=== PATIENT | male | born 1950 | race Caucasian/White ===

== ENCOUNTER 2019-09-24 09:00 | Outpatient (RCR) | payer MEDICARE, SELFPAY ==
--- NOTE | 2019-08-30 16:02 | PTOPEVAL ---
INITIAL PHYSICAL THERAPY EVALUATION and PLAN OF CARE Thank you for referring Mikey to [facility]. Please review, sign, date and return this plan of care ARYAN. He will be seen in PT 2x/wk x 4 wks. I agree with and certify that the following plan of care is medically necessary. Referring Physician Date Admitting Provider: Attending Provider: Nick Nevarez MD Referring Provider: *PT Outpatient Evaluation Start: 08/30/19 14:03 Freq: Status: Active Protocol: Document 08/30/19 14:00 MICHEAL (Rec: 08/30/19 15:34 MICHEAL [id number]) Therapy Assessment Status Assessment Status Assessment Status Evaluation Outpatient Past Medical History Neurological History Hx Neurological Disorders No Significant History Cardiovascular History Hx Coronary Artery Bypass Graft Yes: 4 VESSELS JUN 2015, SEES DR. NIEVES LAST VISIT 05/2019 Hx Coronary Artery Disease Yes Hx Hypercholesterolemia Yes Hx Hypertension Yes Respiratory History Hx Respiratory Disorders No Significant History Gastrointestinal History Hx Gastrointestinal Disorders No Significant History Genitourinary History Hx Genitourinary Disorders No Significant History Musculoskeletal History Hx Arthritis Yes: back, neck Hx Joint Replacement Yes: L partial knee 08/25/19 Hematological History Hx Hematological Disorders No Significant History Endocrine History Hx Endocrine Disorders No Significant History HEENT History Hx Cataracts Yes: BILATERALY SURGERY 2017 Integumentary History Hx Psoriasis Yes: LT LEG, LT ARM Evaluation Information Problem Diagnosis L [place] partial knee Onset 08/25/19 Subjective Information hospitalized overnight Query Text:As Reported By Patient/ night - did too much Family walking on R leg - increased swelling, back in ED Friday morning - no damage - just pain and swelling Initially couldn't feel any pain - then all of a sudden - pain started coming on and kept coming stronger. Saw TIBURCIO - today - everything looking fine. Was told not to do any of the exercises - to keep leg up/elevated with ice after ED visit. Was cleared to do exercises again. 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
--- NOTE | 2019-09-24 13:07 | PTOPEVAL ---
PHYSICAL THERAPY DISCHARGE SUMMARY Thank you for referring this patient to [facility] [place]. Mikey was seen for a total of 8 visits. I agree with Mikey's discharge from PT. Referring Physician Date Admitting Provider: Attending Provider: Nick Nevarez MD Referring Provider: *PT Outpatient Evaluation Start: 08/30/19 14:03 Freq: Status: Active Protocol: Document 09/24/19 09:00 MICHEAL (Rec: 09/24/19 13:07 MICHEAL [id number]) Therapy Assessment Status Assessment Status Assessment Status Discharge Discharge evaluation information Problem Subjective Information Mikey reports that occasionally Query Text:As Reported By Patient/ he will have some discomfort Family while sleeping. After repositioning, he is able to return to sleep. He states that he is doing well with activities - usual household, going to grandchildren's activities, etc. Pain Assessment Pain Scale Pain Scale Used Numeric (1 - 10) Self Report Pain Assessment Left Knee(s) Reported Pain Level 0 Pain Description Aching Other Pain Description irritation Current Pain Intensity 0 Lowest Pain Intensity 0 Greatest Pain Intensity 1 Pain Score Pain Score 0: Self Report Lower Extremity Range of Motion Knee Range of Motion Left Knee Flexion Range of Motion - Active 130 Knee Extension Range of Motion - Active 0 Query Text: Knee Range of Motion Comments knee flexion in sitting and supine - 130 At rest - mild flexion present but with quad set can achieve full extension . Lower Extremity Muscle Strength Testing Hip Strength Left Hip Flexion Strength 5 Normal Hip Extension Strength 5 Normal Hip Abduction Strength 4+ Good + Hip Medial Rotation Strength 5 Normal Hip Lateral Rotation Strength 5 Normal Knee Strength Left Knee Flexion Strength 5 Normal Knee Extension Strength 5 Normal Edema Assessment Location Left Leg(s) Type Non-Pitting Edema Degree 1+ (2 mm or less) Gait Assessment Gait Pattern Assessment Other Gait Observations mild lateral trunk motion - symmetrical, symmetrical heel/ toe pattern, stance and swing phases Stair Climbing Assessment Stair Climbing Assessment Stair Climbing Assistive Devices None Technique
== END 2019-11-11 14:07 | disposition home or self-care (01) ==
LOC: ANHHIPT 09:00
PROVIDERS: Visit Provider Orthopaedic Surgery
DX: Z47.1 Aftercare following joint replacement surgery (principal); Z96.652 Presence of left artificial knee joint
CPT/HCPCS: 97110; 97162

== ENCOUNTER 2020-12-27 11:20 | Outpatient (CLI) | payer MEDICARE, SELFPAY ==
[2020-12-27 13:14] LABS: Basophils Absolute Auto 0.1 K/mm3 (0.0-0.1); Basophils Percent Auto 1.1 % (0.2-1.2); Eosinophils Absolute Auto 0.1 K/mm3 (0-0.3); Eosinophils Percent Auto 2.7 % (0-4.4); Hematocrit 43.2 % (42.0-52.0); Hemoglobin 14.4 g/dL (14.0-18.0); Immature Granulocyte Absolute 0.01 K/mm3 (0.00-0.031); Immature Granulocyte Percent A 0.2 % (0-0.5); Lymphocytes Absolute Auto 1.15 K/mm3 (0.9-3.2); Lymphocytes Percent Auto 24.2 % (18.3-44.2); Mean Corpuscular HGB Conc 33.3 g/dl (32-36); Mean Corpuscular Hemoglobin 33.6 pg (26-34); Mean Corpuscular Volume 100.7 fl (80-100); Mean Platelet Volume 9.8 fl (7.4-10.4); Monocytes Absolute Auto 0.7 K/mm3 (0.1-0.6); Monocytes Percent Auto 14.3 % (2.6-8.5); Neutrophils Absolute Auto 2.7 K/mm3 (1.3-6.7); Neutrophils Percent Auto 57.5 % (45.5-73.1); Platelet Count Result 108 k/mm3 (150-375); Red Blood Count 4.29 M/mm3 (4.6-6.20); Red Cell Distribution Width 13.1 % (11.5-14.5); White Blood Count 4.8 K/mm3 (4.5-10.0)
[2020-12-27 13:23] LABS: Urine Cotinine NEGATIVE
[2020-12-27 13:25] LABS: Albumin Level 4.2 g/dL (3.5-5.1); Anion Gap 3 mmol/L (8-16); Blood Urea Nitrogen 12 mg/dL (9-20); Calcium 9.2 mg/dL (8.4-10.2); Carbon Dioxide 31 mmol/L (22-30); Chloride 101 mmol/L (98-107); Estimated Glomerular Filt Rate > 60; Glucose 100 mg/dL (75-110); Potassium 4.5 mmol/L (3.4-5.0); Sodium 135 mmol/L (137-145)
== END 2020-12-27 11:21 | disposition home or self-care (01) ==
LOC: ANHSURGERY 11:24
PROVIDERS: Visit Provider Orthopaedic Surgery
DX: M17.11 Unilateral primary osteoarthritis, right knee (principal); Z01.818 Encounter for other preprocedural examination
CPT/HCPCS: 80048; 80307; 82040; 83036; 85025; 87070; 87077; 87186

== ENCOUNTER → 2021-01-13 05:22 | Outpatient (CLI) | payer MEDICARE, SELFPAY ==
[2021-01-13 19:34] LABS: SARS-CoV-2 RNA PCR Negative
== END ==
PROVIDERS: Visit Provider Orthopaedic Surgery
DX: Z01.812 Encounter for preprocedural laboratory examination (principal); Z20.822 Contact with and (suspected) exposure to COVID-19
CPT/HCPCS: C9803; U0003; U0005

== ENCOUNTER → 2021-01-27 02:57 | Outpatient (CLI) | payer MEDICARE, SELFPAY ==
[2021-01-27 19:43] LABS: SARS-CoV-2 RNA PCR Negative
== END ==
PROVIDERS: Visit Provider Orthopaedic Surgery
DX: Z01.812 Encounter for preprocedural laboratory examination (principal); Z20.822 Contact with and (suspected) exposure to COVID-19
CPT/HCPCS: C9803; U0003; U0005

== ENCOUNTER 2021-01-31 02:54 | Day surgery (SDC) | payer MEDICARE, SELFPAY ==
[2020-12-27 11:55] VITALS: BP 167/68; PULSE 64; RESP 16; TEMP 37.4; O2SAT 99; BMI 31.2
--- NOTE | 2021-01-15 11:51 | PM.IMHP ---
H&P: HPI History of Present Illness Date/Time: 01/15/21 11:51 [address] Santos.He presents today for a right [place] partial knee replacement versus total knee replacement. He underwent partial knee replacement his left knee about a year and half ago. It is doing well. His right knee is bothering him significantly. He has the same arthritic pattern of medial compartment arthritis in the right knee. He is unable take anti-inflammatories due to coronary artery bypass in the past. He has tried injections in the past none within the last 5 months. Did not seem to help. Patient is fairly miserable, he has ncji-sd-[id number] arthritis in medial compartment. He did very well with his left partial knee replacement and feels he is ready to proceed with the right side. Chief Complaint: right knee DJD Review of Systems Review of Systems: All systems reviewed & are unremarkable except as noted in HPI and below PMFSH Past Medical History Medical History CAD (coronary artery disease) Hyperlipidemia Hypertension Surgical History Surgical History Hx of CABG x4 vessel, 2015 Family History Family History Sibling Patient's sister is in good health Patient's brother is in good health Other Family history of arthritis Family history of congenital heart disease Family history of malignant neoplasm Social History Social History Social History: quit 10-15 years ago, smoked at least 1 PPD x 30 years prior Smoking packs per day: 1.5 Smoking cigarettes per day: 30.0 Years smoked: 30 Smoking pack-years: 45.00 Smoking status: Former smoker Second hand tobacco smoke exposure: No Smoking end date: 04/12/05 Alcohol intake: current Drinks per week: 28 Substance use: never Additional living arrangements comments: Gender identity (if verbalized by the patient): Male Spiritual care concerns: No Meds Home Medications and Allergies Home Medications Medication Instructions Recorded Confirmed Type atorvastatin 20 mg PO HS 08/10/19 12/27/20 History metoprolol tartrate 12.5 mg PO BID 08/10/19 12/27/20 History acetaminophen 1,000 mg PO Q6H PRN 12/27/20 12/27/20 History aspirin [Aspirin Low-Strength] 81 mg PO DAILY 12/27/20 12/27/20 History Allergies Allergy/AdvReac Type Severity Reaction Status Date / Time lisinopril AdvReac Mild MILD COUGH Verified 12/27/20 11:46 Exam Narrative: Exam Narrative: 70-year-old male very alert pleasant. He is 5 ft 5 195 lb. His right knee range of motion is from 3-140 ?. He has large varicose veins in the right calf and trace edema in both lower extremities. 2+ posterior tibial pulse no dorsalis pedis pulse. Normal sensation. Hip range of motion is full without discomfort. Negative Stinchfield maneuver. Normal quad strength. Negative Ailyn's. Resp: Auscultation: clear to auscultation bilaterally Cardio: Rate: regular rate Rhythm: regular rhythm Assessment and Plan Additional Plan 70-year-old male who has lvnr-kf-crud arthritis in medial compartment of the right knee with continued symptoms. He is about a year and half out from his left partial knee replacement which is doing well. He feels that he is having enough pain on a daily basis he would like proceed with right partial knee replacement versus total knee replacement. Surgical procedures well as risks and complications were reviewed. All questions were answered. Patient remain on his aspirin through the time of surgery due to his history of bypass. Patient has seen his regional property manager,Dr. Al, and has been cleared. He has also seen his primary care doctor as well and has been cleared for surgery. We will plan to use aspirin as well as portable SCDs for DVT prophylaxis as we did wit
--- NOTE | 2021-01-18 12:02 | PC.NURSE ---
Pt states no changes in medications or health history since time of interview. New Covid date/time and pre-op instructions given. Pt denies any questions at this time.
--- NOTE | 2021-01-30 13:21 | P.PNAN_ITS ---
Anes - Initial Pre Proc Eval Procedure: Operation Date: 01/31/21 12:00 Proposed Procedures p Right Partial Knee Replacement [place] Versus Total Right Knee Replacement - Nick Nevarez MD Date/Time: 01/30/21 13:21 Surgeon: Nick Nevarez MD Pre Op Diagnosis: Medial Compartment Osteoarthritis Right Knee Patient Data Age: 70 Gender: M Height: 1.68 m Weight: 87.9 kg Last Vital Signs Temp 37.4 C 12/27/20 11:55 Pulse 64 12/27/20 11:55 Resp 16 12/27/20 11:55 BP 167/68 H 12/27/20 11:55 Pulse Ox 99 12/27/20 11:55 Allergies Allergy/AdvReac Type Severity Reaction Status Date / Time lisinopril AdvReac Mild MILD COUGH Verified 01/18/21 12:02 Home Medications Medication Instructions Recorded Confirmed Type atorvastatin 20 mg PO HS 08/10/19 01/18/21 History metoprolol tartrate 12.5 mg PO BID 08/10/19 01/18/21 History acetaminophen 1,000 mg PO Q6H PRN 12/27/20 01/18/21 History aspirin [Aspirin Low-Strength] 81 mg PO DAILY 12/27/20 01/18/21 History Patient hx anesthesia problems: none Family hx anesthesia problems: none PMFSH Past Medical History Medical History (Updated 01/30/21 @ 13:24 by Otf Valdez MD) CAD (coronary artery disease) Hyperlipidemia Hypertension Obesity HUANG (obstructive sleep apnea) Osteoarthritis Surgical History Surgical History (Updated 01/30/21 @ 13:24 by Otf Valdez MD) Hx of CABG x4 vessel, 2014 Family History Family History Sibling Patient's sister is in good health Patient's brother is in good health Other Family history of arthritis Family history of congenital heart disease Family history of malignant neoplasm Social History Social History Social History: quit 10-15 years ago, smoked at least 1 PPD x 30 years prior Smoking packs per day: 1.5 Smoking cigarettes per day: 30.0 Years smoked: 30 Smoking pack-years: 45.00 Smoking status: Former smoker Second hand tobacco smoke exposure: No Smoking end date: 04/12/05 Alcohol intake: current Drinks per week: 28 Alcohol use details: 4 BEERS/DAY Substance use: never Living arrangements: with family Additional living arrangements comments: Gender identity (if verbalized by the patient): Male Spiritual care concerns: No Anes - Eval Final PreProcedure Day of Procedure 01/30/21 13:21 Patient weight: obese Heart: regular rate and rhythm Lungs: clear to auscultation and normal air movement Airway: Mallampati scale class II Neurological: alert and oriented Last oral intake: >/= 8 hours ASA classification: III Emergent: no Anesthetic plan: proceed Anesthesia type and monitoring: general LMA and ETT Informed Consent: The patient's anesthetic plan and its attendant risks and benefits were discussed with the patient/family/POA. Questions were solicited and answers provided to the satisfaction of the patient/family/POA.
[2021-01-31] VITALS (16 sets, daily range): BP systolic 122–155; BP diastolic 50–72; PULSE 64–91; RESP 10–20; TEMP 36.2–37.1; O2SAT 90–98; BMI 36.8
--- NOTE | ~2021-01-31 | XR_ITS ---
EXAMINATION: XR surgery orthopedic DATE: 01/31/2021 14:05 INDICATION: Right partial knee arthroplasty. TECHNIQUE: 18 fluoroscopic images of the right knee were obtained during procedure performed by Dr. Toñito kilpatrick. Radiologist was not present for the imaging or procedure. The amount of fluoroscopy time used during this procedure was 1.1 minutes. COMPARISON: None. FINDINGS: Osteotomy at the right medial tibial plateau with placement of a likely trial tray for subsequent med ial unicompartmental. No fractures identified. A guide pin and soft tissue retractors are also seen. IMPRESSION: 1. Fluoroscopy utilized during right knee medial unicompartmental arthroplasty. See procedure note fo r further detail. Reviewed, dictated and finalized at location A. IMPRESSION: 1. Fluoroscopy utilized during right knee medial unicompartmental arthroplasty. See procedure note for further detail.
--- NOTE | ~2021-01-31 | XR_ITS ---
EXAMINATION: XR knee RT 2V DATE: 01/31/2021 16:10 INDICATION: Right knee arthroplasty. Postop. TECHNIQUE: 2 views of right knee were obtained. COMPARISON: Right knee radiographs 10/16/2017 FINDINGS: There is a medial compartment arthroplasty in near-anatomic alignment. No fracture. There i s mild osteoarthritis of the lateral and patellofemoral compartments characterized by tiny marginal o steophytes. There is gas in the soft tissues, consistent with recent surgery. Calcifications posterio r to the knee are likely loose bodies in a Sanchez's cyst. IMPRESSION: 1. Medial compartment arthroplasty in near-anatomic alignment. 2. 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 3. Loose bodies in a Sanchez's cyst. Reviewed, dictated and finalized at location B.
[2021-01-31] MEDS: LACTATED RINGERS 1,000 ML 30 ML IV CONT ×2 (10:40→15:59)
[2021-01-31] MEDS: TRANEXAMIC ACID 1,000MG/ISO100 1,000 MG/100 ML BAG 200 MG IVPB (10:41)
[2021-01-31] MEDS: ACETAMINOPHEN 500 MG TABLET 1000 MG PO ×2 (10:41→18:56)
[2021-01-31] MEDS: KETOROLAC 15 MG/ML VIAL (*BKC) IV PUSH (11:41)
--- NOTE | 2021-01-31 12:12 | WPDHPUPDATE1 ---
History and Physical Update Update Date/Time: 01/31/21 12:12 History and Physical has been reviewed, including an updated exam of the patient. There are NO changes in the patient's condition. Risks, benefits, and alternatives have been discussed and questions answered. Patient agrees to proceed with procedure.
[2021-01-31] MEDS: ceFAZolin 2 GM/D5W 50 ML 2 GM/50 ML BAG IVPB (13:25)
[2021-01-31] MEDS: GENTAMICIN BONE CEMENT REFOBACIN 1 EACH TOPICAL ×2 (14:15→14:47)
[2021-01-31] MEDS: ceFAZolin SODIUM 1 GM VIAL IRRIGATION (15:17)
--- NOTE | 2021-01-31 15:50 | PM.PROC ---
Procedure Note - Detailed Date of procedure: 01/31/21 Pre-op diagnosis: Medial Compartment Osteoarthritis Right Knee Post-op diagnosis: same Procedure performed: [place] partial knee replacement right knee Description of procedure: Patient was brought to the operating room and general anesthesia was administered. The right thigh was placed on the special ox for partial knee replacement thigh khan with a tourniquet on the thigh and the right knee prepped draped usual fashion. He received 2 g of Ancef weight based vancomycin 1 g of tranexamic acid preoperatively. Limb was exsanguinated and tourniquet elevated to 300 mmHg. A 4 in longitudinal incision was made over the medial margin of the patella to medial to tibial tubercle. Arthrotomy was made with line with the incision. A 1/2 cm split in the VMO made at the superior pole of the patella. Small portion of the infrapatellar fat pad was excised and we removed osteophytes from around the medial femur from the inferior and superior poles of the patella and from around the intercondylar notch. Osteophyte was removed between the medial femoral condyle and medial eminence. ACL looked normal lateral compartment looked normal. There was some chondromalacia of the central trochlea and patella. The medium spoon fit nicely and had appropriate thickness and ligament tension. We lengthen medium spoon to the tibial cutting guide set at 7? of posterior slope using the 4 mm G clamp which was pinned. The tibial cut was made and the wafer sized appropriately to a size D. We placed the Diederich trial on the tibia and was overhanging 2 mm so we removed about 2 mm of bone from the vertical wall and we trialed with the D under fluoro and it fit line to line. Fedder line was drawn on the femur guide meli was inserted down the femoral canal and we linked the medium femoral drill guide to the intramedullary meli set at 4 mm and drilled the holes such that we were just a mm medial to midline on the medial component and a trial on the femoral component drill holes. Posterior chamfer cut made and the distal femur milled with a 0 spigot. On trialing 4 mm was appropriate at 100? of flexion and 2 mm was appropriate at 20? of flexion. We milled with a 2 mm spigot and on trialing we had appropriate balance and equal wiggle with a 4 mm trial bearing at 120? of flexion. Impingement guide was placed anterior femur milled posterior cartilage removed the femur. The keel slot for the tibial component was made with the toothbrush saw and we trialed 1 more time and bearing tracking was a mm from the vertical wall Alejandro flexion mid flexion drifting off to about 2 and half to 3 mm of vertical wall in full extension. There was no impingement in full extension and full flexion. Step drill was used to make multiple perforations tibial plateau and distal femur. Bony surfaces were thoroughly irrigated and dried. One batch of methylmethacrylate with gentamicin was mixed medially applied the tibial component the pressurized in the femur and the tibial component size D fully seated trial femur 4 mm Feeler 45? of flexion for pressurization the tourniquet released at 95 minutes. After cement hardening excess cement was carefully soft for removed and we prepared the femur we elevation the tourniquet and batch of cement of the femoral component pressurized in the femur and femoral component fully seated size medium 4 mm Feeler 45? of flexion tourniquet released and allowed the cement to harden after which excess cement was sought for and removed. We trialed and the 4 bearing was appropriate again in flexion extension. The real 4 bearing was placed without difficulty range of motion stability reconfirmed. The wound was thoroughly irrigated with antibiotic solution. Arthrotomy injected with the the 2 carts anesthetic solution arthrotomy was closed with 2. Vicryl Plus than 1 unidirectional barbed strata fix suture and 2 a subcutaneous Vicryl and the skin 3 0 subcuticular
--- NOTE | 2021-01-31 17:24 | ADMGEN ---
This patient, Mikey Almonte, was admitted to Medical Room 254-01. Patient/family oriented to hospital policies and general routines including ID bracelet, bed and alarms, visiting hours, pain management, procedures, bathroom and other care routines, personal items, smoking policy, room service/diet, and visiting hours. Information on how to activate the Rapid Response Team has been discussed. Patient/Family are encouraged to report perceived risks to care and to ask questions if they do not understand what they are told or what they should do.
[2021-01-31] MEDS: DEXTROSE 5%/0.45% SOD CHL 1,000 ML 100 ML IV CONT (18:55)
[2021-01-31] MEDS: SENNA/DOCUSATE SODIUM TABLET 2 TAB PO (18:56)
--- NOTE | 2021-01-31 20:20 | PM.IMCN ---
Assessment and Plan Assessment and plan (1) Status post right partial knee replacement: Code(s): Z96.651 - Presence of right artificial knee joint Status: Acute Assessment and Plan: Continue ortho recommendations. (2) CAD (coronary artery disease): Qualifiers: Associated angina: without angina Coronary Disease-Associated Artery/Lesion type: bypass graft, autologous artery Qualified Code(s): I25.810 - Atherosclerosis of coronary artery bypass graft(s) without angina pectoris Code(s): I25.10 - Atherosclerotic heart disease of [place] coronary artery without angina pectoris Status: Chronic Assessment and Plan: No chest pain. Continue home meds. (3) Hyperlipidemia: Qualifiers: Hyperlipidemia type: unspecified Qualified Code(s): E78.5 - Hyperlipidemia, unspecified Code(s): E78.5 - Hyperlipidemia, unspecified Status: Chronic Assessment and Plan: Continue atorvastatin PO. (4) Hypertension: Qualifiers: Hypertension type: unspecified Qualified Code(s): I10 - Essential (primary) hypertension Code(s): I10 - Essential (primary) hypertension Status: Chronic Assessment and Plan: Continue metoprolol PO Additional Plan Date of service was 01/31/2021 at 19:45 hrs HPI Data of Consult Consult date: 02/02/21 Requesting Physician: Nick Nevarez MD Primary Care Provider: PHYSICIAN NOT ON STAFF Consult Narrative Narrative: Thank you for consulting us to see this 70 year old male with known history of CAD+ s/p CABG x 4 and hyperlipidemia who just underwent a right knee partial knee replacement today. The patient denies any knee pain at this time and has already gotten out of bed. He denies any fevers, chills, cough, shortness of breath, chest pain, nausea, vomiting, abdominal pain, dysuria, diarrhea or rectal bleeding. No other complaints. Review of Systems Review of Systems: All systems reviewed & are unremarkable except as noted in HPI and below PMFSH Past Medical History Medical History CAD (coronary artery disease) Hyperlipidemia Hypertension Obesity HUANG (obstructive sleep apnea) Osteoarthritis Surgical History Surgical History Hx of CABG x4 vessel, 2015 Family History Family History Sibling Patient's sister is in good health Patient's brother is in good health Other Family history of arthritis Family history of congenital heart disease Family history of malignant neoplasm Social History Social History Social History: quit 10-15 years ago, smoked at least 1 PPD x 30 years prior Smoking packs per day: 1.5 Smoking cigarettes per day: 30.0 Years smoked: 30 Smoking pack-years: 45.00 Smoking status: Former smoker Second hand tobacco smoke exposure: No Alcohol intake: current Drinks per week: 28 Alcohol use details: 4 BEERS/DAY Substance use: never Substance use type: does not use Living arrangements: with family Additional living arrangements comments: Gender identity (if verbalized by the patient): Male Sexual Orientation (if Verbalized by the Patient): Straight or Heterosexual Spiritual care concerns: No Meds Home Medications and Allergies Home Medications Medication Instructions Recorded Confirmed Type atorvastatin 20 mg PO HS 08/10/19 01/31/21 History metoprolol tartrate 12.5 mg PO BID 08/10/19 01/31/21 History acetaminophen 1,000 mg PO Q6HR #90 tablet 02/01/21 Rx aspirin [Children's Aspirin] 81 mg PO Q12HR #90 tablet 02/01/21 Rx celecoxib [Celebrex] 200 mg PO DAILY@0800 #30 cap 02/01/21 Rx cephalexin 500 mg PO Q12HR #27 cap 02/01/21 Rx oxycodone 5 mg PO Q4HR #40 tablet 02/01/21 Rx sennosides-docusate sodium 2 t
[2021-01-31] MEDS: DOCUSATE SODIUM 100 MG CAPSULE PO (20:44)
[2021-01-31] MEDS: METOPROLOL TARTRATE 12.5 MG TABLET PO (20:44)
[2021-01-31] MEDS: ASPIRIN 81 MG CHEWABLE TABLET PO (20:44)
[2021-01-31] MEDS: ATORVASTATIN 20 MG TABLET PO (20:45)
[2021-01-31] MEDS: oxyCODONE HCL (*CRX) 5 MG TAB IR PO (20:47)
[2021-02-01] MEDS: oxyCODONE HCL (*CRX) 5 MG TAB IR PO ×4 (01:24→12:57)
[2021-02-01] MEDS: ACETAMINOPHEN 500 MG TABLET 1000 MG PO ×3 (01:24→11:20)
[2021-02-01 04:40] VITALS: BP 119/61; PULSE 60; RESP 18; TEMP 36.4; O2SAT 98
[2021-02-01 05:38] LABS: Basophils Percent Auto 0.2 % (0.2-1.2); Hematocrit 38.6 % (42.0-52.0); Hemoglobin 12.9 g/dL (14.0-18.0); Immature Granulocyte Absolute 0.02 K/mm3 (0.00-0.031); Immature Granulocyte Percent A 0.3 % (0-0.5); Immature Platelet Fraction Pct 5.7 % (0.9-11.2); Lymphocytes Absolute Auto 0.53 K/mm3 (0.9-3.2); Lymphocytes Percent Auto 8.5 % (18.3-44.2); Mean Corpuscular HGB Conc 33.4 g/dl (32-36); Mean Corpuscular Hemoglobin 33.7 pg (26-34); Mean Corpuscular Volume 100.8 fl (80-100); Mean Platelet Volume 10.5 fl (7.4-10.4); Monocytes Absolute Auto 0.6 K/mm3 (0.1-0.6); Monocytes Percent Auto 9.5 % (2.6-8.5); Neutrophils Absolute Auto 5.1 K/mm3 (1.3-6.7); Neutrophils Percent Auto 81.5 % (45.5-73.1); Platelet Count Result 110 k/mm3 (150-375); Red Blood Count 3.83 M/mm3 (4.6-6.20); White Blood Count 6.2 K/mm3 (4.5-10.0)
[2021-02-01 05:55] LABS: Anion Gap 4 mmol/L (8-16); Blood Urea Nitrogen 13 mg/dL (9-20); Calcium 8.3 mg/dL (8.4-10.2); Carbon Dioxide 24 mmol/L (22-30); Chloride 101 mmol/L (98-107); Estimated CRCL calculation 82 ml/min; Estimated Glomerular Filt Rate > 60; Glucose 135 mg/dL (75-110); Potassium 4.5 mmol/L (3.4-5.0); Sodium 129 mmol/L (137-145)
--- NOTE | 2021-02-01 07:16 | PM.PNORT ---
Progress Note: A&P Additional Plan POD 1 alert avss ,labs-noted,Na -129 pt is having symptoms from low sodium, wd-dry , NVI, pain is well controlled, has walked to restroom last night. pt to work with PT today,is goes well plan to send home this afternoon Subjective Subjective Date/Time Seen: 02/01/21 07:16 Objective Data Vital Signs Vital Signs: Vital Signs - 24 hr 01/31/21 10:59 01/31/21 15:59 01/31/21 16:15 Temperature 36.8 C 37.1 C Pulse Rate 66 86 88 Respiratory Rate 18 10 L 16 Blood Pressure 151/59 H 122/50 L 125/58 L Pulse Oximetry 96 96 98 01/31/21 16:30 01/31/21 16:45 01/31/21 17:00 Temperature Pulse Rate 91 89 88 Respiratory Rate 16 19 16 Blood Pressure 122/58 L 128/58 L 130/65 Pulse Oximetry 90 92 90 01/31/21 17:25 01/31/21 17:40 01/31/21 17:50 Temperature 36.2 C L 36.2 C L Pulse Rate 78 80 Respiratory Rate 20 20 Blood Pressure 135/59 L 155/61 H Pulse Oximetry 94 97 95 01/31/21 18:10 01/31/21 19:30 01/31/21 20:44 Temperature 36.3 C L 36.3 C L Pulse Rate 85 77 78 Respiratory Rate 20 20 Blood Pressure 153/72 H 138/65 Pulse Oximetry 94 98 01/31/21 21:00 01/31/21 22:24 01/31/21 23:00 Temperature Pulse Rate 68 Respiratory Rate Blood Pressure Pulse Oximetry 98 91 97 01/31/21 23:10 02/01/21 04:40 Temperature 36.6 C 36.4 C Pulse Rate 64 60 Respiratory Rate 16 18 Blood Pressure 131/55 L 119/61 Pulse Oximetry 97 98 Intake/Output Intake/Output: Intake & Output 01/29/21 01/30/21 01/31/21 02/01/21 23:59 23:59 23:59 23:59 Intake Total 1040 1075 Output Total 0 Balance 1040 1075 Meds/Results Medications: Active Medications Generic Name Dose Route Start Last Admin Trade Name Freq PRN Reason Stop Dose Admin Acetaminophen 1,000 mg 01/31/21 18:00 02/01/21 06:10 Acetaminophen 500 Mg Tablet PO 1,000 mg Q6HR JAYCOB Administration Aspirin 81 mg 01/31/21 21:00 01/31/21 20:44 Aspirin 81 Mg Chewable Tablet PO 81 mg Q12HR JAYCOB Administration Atorvastatin Calcium 20 mg 01/31/21 21:00 01/31/21 20:45 Atorvastatin 20 Mg Tablet PO 20 mg HS JAYCOB Administration Celecoxib 200 mg 02/01/21 08:00 Celecoxib 200 Mg Capsule PO DAILY@0800 JAYCOB Cephalexin HCl 500 mg 02/01/21 21:00 Cephalexin 500 Mg Capsule PO 02/11/21 21:01 Q12HR JAYCOB Docusate Sodium 100 mg 01/31/21 21:00 01/31/21 20:44 Docusate Sodium 100 Mg Capsule PO 100 mg Q12HR JAYCOB Administration Cefazolin Sodium 1 gm in 50 mls @ 100 mls/hr 01/31/21 21:00 02/01/21 06:14 Ancef 1 Gm/D5w 50 Ml Pm IVPB 02/01/21 13:29 Infused Q8H JAYCOB Infusion Vancomycin HCl 1,000 mg in 250 mls @ 250 mls/hr 01/31/21 22:00 01/31/21 23:30 Vancomycin 1,000 Mg/D5w 250 Ml IVPB 02/01/21 10:59 Infused Q12H JAYCOB Infusion Metoprolol Tartrate 12.5 mg 01/31/21 21:00 01/31/21 20:44 Metoprolol Tartrate 12.5 Mg Tablet PO 12.5 mg Q12HR JAYCOB Administration Naloxone HCl 0.1 mg 01/31/21 17:10 Naloxone Hcl 0.4 Mg/Ml Vial IV PUSH Q2M PRN Opiate Reversal Oxycodone HCl 5 mg 01/31/21 17:10 Oxycodone Hcl (*Crx) 5 Mg Tab Ir PO Q4H PRN Pain Rated 7-10 Oxycodone HCl 5 mg 01/31/21 21:00 02/01/21 05:18 Oxycodone Hcl (*Crx) 5 Mg Tab Ir PO 5 mg Q4HR JAYCOB Administration Senna/Docusate Sodium 2 tab 01/31/21 17:10 01/31/21 18:56 Senna/Docusate Sodium Tablet PO 2 tab BID JAYCOB Administration Radiology Results: ITS Impressions Intraoperative X-Ray 01/31/21 14:37 IMPRESSION: 1. Fluoroscopy utilized during right knee medial unicompartmental arthroplasty. See procedure note for further detail. Knee X-Ray 01/31/21 16:14 IMPRESSION: 1. Medial compartment arthroplasty in near-anatomic alignment. 2. 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 3. Loose bodies in a Sanchez's cyst. Labs Labs: Laboratory Results - last 24 hr 01/31/21 02/01/21 02/01/21 10:27 05:15 05:15 WBC 6
--- NOTE | 2021-02-01 07:22 | PM.DS ---
DS: Admitting Diagnosis Admitting Diagnosis Admitting Diagnosis: right knee DJD DS: Summary Hospital Course Hospital Course: stable Time Spent with Patient Time attestation: Total time spent providing and/or coordinating discharge services: 70-year-old male who underwent an [place] partial knee replacement of his right knee by Dr. Nevarez on 01/31/2021. Underwent the procedure without any complications. Postoperatively he has been afebrile vital Signs is stable neurovascularly he is intact, his wound is dry a as a Mepilex dressing over his knee. He is weight-bearing as tolerated. He was up walking to the restroom the day of surgery. He will work with Physical therapy on postop day 1. His pain is well controlled with scheduled Tylenol as well as oxycodone 5 mg. He is also on Celebrex 200 mg once a day. He will be discharge to home on 02/01. He is going to be on portable SCDs as well as his baby aspirin twice a day for DVT prophylaxis. He is also on an additional week of Keflex postoperatively. The patient was advised to keep the leg elevated at home prevent swelling but do his exercises on a regular basis. He has outpatient therapy starting next Friday. Patient was advised that he questions or concerns he should call the office otherwise will see him at his appointment dates. He is also going home on MiraLax and Senokot for constipation. DS: Data Data Completed and Pending Labs on day of discharge: Labs from last 24 hours 02/01/21 02/01/21 01/31/21 05:15 05:15 10:27 WBC 6.2 RBC 3.83 L Hgb 12.9 L Hct 38.6 L MCV 100.8 H MCH 33.7 MCHC 33.4 RDW 13.0 Plt Count 110 L MPV 10.5 H Immature Gran % (Auto) 0.3 Neut % (Auto) 81.5 H Lymph % (Auto) 8.5 L [place] % (Auto) 9.5 H Eos % (Auto) 0.0 Baso % (Auto) 0.2 Lymph # (Auto) 0.53 L [place] # (Auto) 0.6 Eos # (Auto) 0.0 Baso # (Auto) 0.0 Abs Immat Gran (auto) 0.02 Absolute Neuts (auto) 5.1 Absolute Nucleated RBC 0.0 Nucleated RBC % 0.0 % Immature Plt Fraction 5.7 Sodium 129 L Potassium 4.5 Chloride 101 Carbon Dioxide 24 Anion Gap 4 L BUN 13 Creatinine 0.80 Estim Creat Clear Calc 82 Estimated GFR > 60 Glucose 135 H Calcium 8.3 L Blood Type O Positive Antibody Screen Negative Discharge Plan Discharge Patient Disposition: Home, Self-Care Discharge Instructions: NICK NEVAREZ M.D [facility], [place] [id number] [place] [id number] POST-OPERATIVE DISCHARGE INSTRUCTIONS TOTAL KNEE ARTHROPLASTY 1. When resting, lie on back with leg elevated above hear to minimize swelling. Significant swelling could indicate a blood clot and if this occurs call the office (or go to the ER) to have a venous ultrasound. 2. Do exercise 5 times a day. 3. Do not sit with leg down except for meals. 4. Wound Care: Nursing will give additional dressings at discharge. Patient to change dressing at home 1 week from surgery, then maintain until seen in office. 5. May shower with dressing in place. 6. Follow weight bearing status instructions. 7. Patient is to use home SCDs for 23 hours a day for 2 weeks, please remind patient of this Stand Alone Forms: General Discharge Instructions Follow-up/Referrals: Nick Nevarez MD [Physician] - Keep Reg. Scheduled Appt. Discharge Medications: New celecoxib [Celebrex] 200 mg Capsule 200 mg PO DAILY@0800 Qty: 30 RF: 0 sennosides-docusate sodium [Senokot-S] 8.6-50 mg Tablet 2 tab PO BID Qty: 60 RF: 0 acetaminophen 500 mg Tablet 1,000 mg PO Q6HR Qty: 90 RF: 0 cephalexin 500 mg Capsule 500 mg PO Q12HR Qty: 27 RF: 0 aspirin [Children's Aspirin] 81 mg Tablet,Chewable 81 mg PO Q12HR Qty: 90 RF: 0 oxycodone 5 mg Tablet 5 mg PO Q4HR Qty: 40 RF: 0 Continued atorvastatin 20 mg Tablet 20 mg PO HS RF: 0 metoprolol tartrate 25 mg Ta
--- NOTE | 2021-02-01 08:05 | P.PNAN_ITS ---
Anes - Prog Note Post-Op Date/Time: 02/01/21 08:05 Cardiovascular status: normal Respiratory status: normal Airway patency: baseline Mental status: baseline Post-Op hydration status: normal Vital Signs: Last Vital Signs Temp 97.6 F 02/01/21 04:40 Pulse 60 02/01/21 04:40 Resp 18 02/01/21 04:40 BP 119/61 02/01/21 04:40 Pulse Ox 98 02/01/21 04:40 Pain Score (VAS): 10/22 I/O: Intake & Output 01/31/21 02/01/21 02/01/21 23:59 07:59 15:59 Intake Total 640 1075 240 Output Total 0 Balance 640 1075 240 Laboratory Tests 02/01/21 05:15 02/01/21 05:15 01/31/21 02/01/21 02/01/21 10:27 05:15 05:15 WBC 6.2 RBC 3.83 L Hgb 12.9 L Hct 38.6 L MCV 100.8 H MCH 33.7 MCHC 33.4 RDW 13.0 Plt Count 110 L MPV 10.5 H Immature Gran % (Auto) 0.3 Neut % (Auto) 81.5 H Lymph % (Auto) 8.5 L [place] % (Auto) 9.5 H Eos % (Auto) 0.0 Baso % (Auto) 0.2 Lymph # (Auto) 0.53 L [place] # (Auto) 0.6 Eos # (Auto) 0.0 Baso # (Auto) 0.0 Abs Immat Gran (auto) 0.02 Absolute Neuts (auto) 5.1 Absolute Nucleated RBC 0.0 Nucleated RBC % 0.0 % Immature Plt Fraction 5.7 Sodium 129 L Potassium 4.5 Chloride 101 Carbon Dioxide 24 Anion Gap 4 L BUN 13 Creatinine 0.80 Estim Creat Clear Calc 82 Estimated GFR > 60 Glucose 135 H Calcium 8.3 L Blood Type O Positive Antibody Screen Negative Post-procedural complaints: none Patient Feedback: Patient satisfied with anesthetic care.
[2021-02-01 08:44] VITALS: PULSE 64
[2021-02-01] MEDS: DOCUSATE SODIUM 100 MG CAPSULE PO (08:44)
[2021-02-01] MEDS: ASPIRIN 81 MG CHEWABLE TABLET PO (08:44)
[2021-02-01] MEDS: METOPROLOL TARTRATE 12.5 MG TABLET PO (08:44)
[2021-02-01] MEDS: SENNA/DOCUSATE SODIUM TABLET 2 TAB PO (08:44)
[2021-02-01] MEDS: CELECOXIB 200 MG CAPSULE PO (08:44)
[2021-02-01 09:01] VITALS: BP 136/60; PULSE 64; RESP 18; TEMP 36; O2SAT 98
--- NOTE | 2021-02-01 13:31 | PC.NURSE ---
On 02/01/21, the student, [ Lucinda Lujan], provided care and completed [facility] documentation on this patient. I have reviewed the student's documentation and agree with the findings.
--- NOTE | 2021-02-01 15:18 | PM.IMPN ---
Progress Note: A&P Assessment and Plan (1) Status post right partial knee replacement: Code(s): Z96.651 - Presence of right artificial knee joint Status: Acute Assessment and Plan: Continue ortho recommendations. (2) CAD (coronary artery disease): Qualifiers: Associated angina: without angina Coronary Disease-Associated Artery/Lesion type: bypass graft, autologous artery Qualified Code(s): I25.810 - Atherosclerosis of coronary artery bypass graft(s) without angina pectoris Code(s): I25.10 - Atherosclerotic heart disease of [place] coronary artery without angina pectoris Status: Chronic Assessment and Plan: No chest pain. Continue home meds. (3) Hyperlipidemia: Qualifiers: Hyperlipidemia type: unspecified Qualified Code(s): E78.5 - Hyperlipidemia, unspecified Code(s): E78.5 - Hyperlipidemia, unspecified Status: Chronic Assessment and Plan: Continue atorvastatin PO. (4) Hypertension: Qualifiers: Hypertension type: unspecified Qualified Code(s): I10 - Essential (primary) hypertension Code(s): I10 - Essential (primary) hypertension Status: Chronic Assessment and Plan: Continue metoprolol PO (5) Chronic hyponatremia: Code(s): E87.1 - Hypo-osmolality and hyponatremia Status: Acute Assessment and Plan: Last 2 readings 134 and 135 Pt is asymptomatic and has been urinating with no problem Pt advised to f/u with PCP Further w/o deferred to PCP o/p Additional Plan Date of service was 01/31/2021 at 19:45 hrs Subjective Date/time seen: 02/01/21 15:18 Pt seen and evaluated; pain is controlled and has ambulated with PT Review of Systems Review of Systems: All systems reviewed & are unremarkable except as noted in HPI and below Exam Const: General: cooperative, no acute distress, alert and awake Nutritional Appearance: well nourished Orientation/consciousness: patient oriented x3 HENMT: Head: normal to inspection General nose exam: Normal external nose present Face and sinus: normal facial exam Mouth: Yes Normal oral and palatal mucosa present and Yes oropharynx normal Eyes: Pupils: Equal, round and reactive pupils present EOM: EOMs intact bilaterally Neck: Neck: supple and no JVD Thyroid: thyroid normal Lymphatic: lymphadenopathy not noted Resp: Effort & Inspection: normal respiratory effort Auscultation: clear to auscultation bilaterally Cardio: Rate: regular rate Rhythm: regular rhythm Heart sounds: no murmurs GI: Inspection: normal to inspection Auscultation: normal bowel sounds Skin: General skin exam: normal color and no rashes or lesions noted Neuro: General: patient oriented x3 Cranial nerves: Yes CN's II-XII intact bilaterally and Yes Equal, round and reactive pupils present Speech: normal speech Motor exam (neuro): 5/5 motor strength present throughout Sensory Exam: normal sensation Extrem: Right lower extremity: knee (In immobilizer+ ) Psych: Mental Status: mental status grossly normal Affect: normal affect Objective Data Vital Signs Vital Signs: Vital Signs - 24 hr 01/31/21 15:59 01/31/21 16:15 01/31/21 16:30 Temperature 37.1 C Pulse Rate 86 88 91 Respiratory Rate 10 L 16 16 Blood Pressure 122/50 L 125/58 L 122/58 L Pulse Oximetry 96 98 90 01/31/21 16:45 01/31/21 17:00 01/31/21 17:25 Temperature 36.2 C L Pulse Rate 89 88 78 Respiratory Rate 19 16 20 Blood Pressure 128/58 L 130/65 135/59 L Pulse Oximetry 92 90 94 01/31/21 17:40 01/31/21 17:50 01/31/21 18:10 Temperature 36.2 C L 36.3 C L Pulse Rate 80 85 Respiratory Rate 20 20 Blood Pressure 155/61 H 153/72 H Pulse Oximetry 97 95 94 01/31/21 19:30 01/31/21 20:44 01/31/21 21:00 Temperature 36.3 C L Pulse Rate 77 78 Respiratory Rate 20 Blood Pressure 138/65 Pulse Oximetry 98 98 01/31/21 22:24 01/31/21 23:00 01/31/21 23:10 Temperature 36.6 C Pulse Rate
== END 2021-02-01 13:20 | disposition home or self-care (01) ==
LOC: ANHSURGERY 10:00 → ANH2MED 17:12
PROVIDERS: PCP Family Medicine Sports Medicine; Visit Provider Orthopaedic Surgery
PROC: (CPT 27446; principal; 2021-01-31 12:00)
DX: M17.11 Unilateral primary osteoarthritis, right knee (principal); I10 Essential (primary) hypertension; I25.10 Atherosclerotic heart disease of native coronary artery without angina pectoris; E78.5 Hyperlipidemia, unspecified; G47.33 Obstructive sleep apnea (adult) (pediatric); E66.9 Obesity, unspecified; Z68.36 Body mass index [BMI] 36.0-36.9, adult; Z79.82 Long term (current) use of aspirin; Z95.1 Presence of aortocoronary bypass graft; Z87.891 Personal history of nicotine dependence
CPT/HCPCS: 27446; 36415; 73560; 80048; 85025; 85055; 86850; 86900; 86901; 97110; 97161; 97165; A9270; C1713; C1776; C9803; J0171; J0360; J0690; J1100; J1170; J1885; J2250; J2270; J2405; J2704; J2795; J3010; J3370; J7120; U0003; U0005

== ENCOUNTER 2021-03-13 11:00 | Outpatient (RCR) | payer MEDICARE, SELFPAY ==
--- NOTE | 2021-02-05 10:53 | PTOPEVAL ---
INITIAL PHYSICAL THERAPY EVALUATION and PLAN OF CARE Thank you for referring Mikey Almonte to [facility].? Mikey is scheduled to be seen for physical therapy? 2x/week for 6 weeks. Please review, sign, date and return this plan of care ARYAN. I agree with and certify that the following plan of care is medically necessary. Referring Physician Date Admitting Provider: Attending Provider: Nick Nevarez MD Referring Provider: *PT Outpatient Evaluation Start: 02/05/21 09:36 Freq: Status: Active Protocol: Document 02/05/21 09:35 MICHEAL (Rec: 02/05/21 10:52 MICHEAL [id number]) Therapy Assessment Status Assessment Status Assessment Status Evaluation Outpatient Past Medical History Past Medical History Source of Past Medical History Recalled from Previous Visit, Confirmed with Patient/Family Neurological History Hx Neurological Disorders No Significant History Cardiovascular History Hx Coronary Artery Bypass Graft Yes: 4 VESSELS JUN 2015, DR JOSE F GARDUNO, [facility] 10/27/20 Hx Coronary Artery Disease Yes Hx Coronary Stent Yes: STENTS PRIOR TO CABG Hx Hypercholesterolemia Yes Hx Hypertension Yes Hx Other Cardiac Disorders Yes: DENIES CARDIAC SYMPTOMS- ACTIVE,JOB REQUIRES LG AMT WALKING/LIFTING Respiratory History Hx Sleep Apnea Yes: NO LONGER USING CPAP, USING MOUTH PIECE Gastrointestinal History Hx Gastrointestinal Disorders No Significant History Genitourinary History Hx Genitourinary Disorders No Significant History Musculoskeletal History Hx Arthritis Yes: back, neck Hx Joint Replacement Yes: L partial knee 08/25/19, right partial knee 01/31/21 Hx Other Musculoskeletal Disorders Yes: LT MIDDLE FINGER SURG WITH PIN Hematological History Hx Hematological Disorders No Significant History Endocrine History Hx Endocrine Disorders No Significant History HEENT History Hx Cataracts Yes: BILATERALY SURGERY 2016 Hx Other HEENT Disorders Yes: GLASSES Integumentary History Hx Psoriasis Yes: LT LEG, LT ARM Reproductive History Hx Other Reproductive Disorders Yes: VASECTOMY Psychosocial History Hx Psychiatric Disorders No Significant History Pain History History of Any Previous or Ongoing No Significant History Instance of Pain Anesthesia History Hx Anesthesia Reactions No Significant History Other History Hx Implanted Device Yes: LT MIDDLE FINGER, LT PARTIAL KNEE Hx Other Medical Conditions Yes: COVID + NEAR MIDWAY 12
--- NOTE | 2021-02-26 12:02 | PTOPEVAL ---
PHYSICAL THERAPY RE-EVALUATION/PROGRESS NOTE Thank you for referring Mikey Almonte to [facility].? Mikey has been seen x 7 visits in PT. He is progressing well towards goals set. This progress note is being sent for upcoming MD appointment 02/28/2021. Admitting Provider: Attending Provider: Nick Nevarez MD Referring Provider: Therapy Assessment Status Assessment Status Assessment Status Re-evaluation Evaluation Information Problem Diagnosis R partial total knee arthroplasty Subjective Information Mikey states that R leg will Query Text:As Reported By Patient/ still swell during the day, Family much less swelling in the mornings. He has spread fertilizer in yard. Going without cane most of the time now. Pain Assessment Self Report Pain Assessment Right Knee(s) Reported Pain Level 1 Other Pain Description mainly stiffness - not pain Lower Extremity Range of Motion Knee Range of Motion Right Knee Flexion Range of Motion - Active 118 Knee Extension Range of Motion - Active 0 Query Text: Lower Extremity Muscle Strength Testing Hip Strength Right Hip Flexion Strength 4 Good Hip Extension Strength 5 Normal Hip Abduction Strength 4+ Good + Hip Medial Rotation Strength 5 Normal Hip Lateral Rotation Strength 5 Normal Knee Strength Right Knee Flexion Strength 5 Normal Knee Extension Strength 4+ Good + Palpation Assessment Palpation Palpation Good incisional and patellar mobility present. Mild increase in edema throughout R thigh, knee, and calf. Balance Assessment Time Up Go (TUG) Timed Up and Go Test (TUG) (Seconds) 12 Assistive Devices None 5 Time Sit to Stand Time in Seconds 19.06 5 Time Sit to Stand Comments hands crossed over chest Query Text:Normative Data: If Greater Than 15 Seconds, 74% Increase Risk for Recurrent Falls Gait Assessment Gait Pattern Assessment Other Gait Observations mild lateral trunk lean - symmetrically - no assistive device Stair Climbing Assessment Stair Climbing Assessment Stair Climbing Assistive Devices None Weight Bearing Status - Left Full Weight Bearing Status - Right Full Maintains Weight Bearing Status Yes Number of Steps Climbed (Steps) 4 Number of Repetitions (Repetitions) 2 Technique Alternating Steps Stair Climbing Direction Both Up and Down Stair Climbing Ability Independent Stair Climbing Comments without deviation PT Clinical Summary Clinical Summary Protocol: PTEVCODE PT Clinical
--- NOTE | 2021-03-13 16:40 | PTOPEVAL ---
PHYSICAL THERAPY DISCHARGE SUMMARY Thank you for referring Mikey Almonte to [facility].? Mikey has been seen for 11 visits. He has met all goals set and had returned to his prior level of function. He is ready for d/c from PT to HEP. I agree with Mikey's discharge from PT. Referring Physician Date Admitting Provider: Attending Provider: Nick Nevarez MD Referring Provider: Therapy Assessment Status Assessment Status Assessment Status Discharge Evaluation Information Problem Diagnosis R partial total knee arthroplasty Subjective Information Mikey reports that R knee is Query Text:As Reported By Patient/ stiff but otherwise doing well Family . Back to doing everything that he used to. Pain Assessment Timing of Pain Assessment Timing of Pain Assessment Assessment Pain Scale Pain Scale Used Numeric (1 - 10) Self Report Pain Assessment Right Knee(s) Reported Pain Level 0 Lowest Pain Intensity 0 Greatest Pain Intensity 0 Pain Score Pain Score 0: Self Report Lower Extremity Range of Motion Knee Range of Motion Right Knee Flexion Range of Motion - Active 127 Knee Extension Range of Motion - Active 0 Query Text: Lower Extremity Muscle Strength Testing Hip Strength Right Hip Flexion Strength 4+ Good + Hip Extension Strength 5 Normal Hip Abduction Strength 4+ Good + Hip Medial Rotation Strength 5 Normal Hip Lateral Rotation Strength 5 Normal Knee Strength Right Knee Flexion Strength 5 Normal Knee Extension Strength 4+ Good + Extremity Circumference Assessment Circumference Assessment Location Right Site Descriptor ([place]) mid patellar Circumference Comments mild in edema present - R thigh, lower leg R 41.8 cm Balance Assessment Time Up Go (TUG) Timed Up and Go Test (TUG) (Seconds) 11 Assistive Devices None 5 Time Sit to Stand Time in Seconds 17 5 Time Sit to Stand Comments hands crossed over chest Query Text:Normative Data: If Greater Than 15 Seconds, 74% Increase Risk for Recurrent Falls Gait Assessment Gait Pattern Assessment Other Gait Observations still mild lateral trunk lean - but bilateral, equal step length, symmetrical stance, swing phases Stair Climbing Assessment Stair Climbing Assessment Stair Climbing Assistive Devices None Weight Bearing Status - Left Full Weight Bearing Status - Right Full Maintains Weight Bearing Status Yes Number of Steps Climbed (Steps) 4 Number of Repetitions (Repetitions) 2 Technique
== END 2021-03-27 10:26 | disposition home or self-care (01) ==
LOC: ANHPT 11:00
PROVIDERS: PCP Family Medicine Sports Medicine; Visit Provider Orthopaedic Surgery
DX: Z47.1 Aftercare following joint replacement surgery (principal); Z96.651 Presence of right artificial knee joint
CPT/HCPCS: 97110; 97140; 97161

== ENCOUNTER 2021-11-29 11:45 | Outpatient (CLI) | payer MEDICARE, SELFPAY ==
--- NOTE | 2021-11-29 13:44 | WPDSIXMINUTE ---
Six Minute Walk Procedure Procedure Performed Pulmonary Stress Test (6 min walk) Six Minute Walk This is a 6 minute walk test. The test was performed and interpreted in accordance with the 2014 ERS/ATS task force guidelines. Findings: The patient's resting room air oxygen saturation measured by pulse oximetry was 96% and heart rate was 75 bpm. Patient ambulated for 305 meters and oxygen saturation remained 91 to 94%. Heart rate at the end of the study was 108 bpm. The patient did not qualify for supplemental oxygen at rest or with ambulation. There are no prior studies for comparison.
== END 2021-11-29 11:46 | disposition home or self-care (01) ==
PROVIDERS: PCP Family Medicine Sports Medicine
DX: J44.9 Chronic obstructive pulmonary disease, unspecified (principal)
CPT/HCPCS: 94618

== ENCOUNTER 2022-02-05 13:30 | Outpatient (RCR) | payer MEDICARE, SELFPAY ==
[2021-11-23 09:21] VITALS: PULSE 76
== END 2022-02-05 14:00 | disposition home or self-care (01) ==
LOC: ANHCPREHAB 13:30
PROVIDERS: PCP Family Medicine Sports Medicine
DX: J44.9 Chronic obstructive pulmonary disease, unspecified (principal)
CPT/HCPCS: 93798; 94625

== ENCOUNTER 2023-03-28 10:36 | Inpatient (IN) | payer MEDICARE, SELFPAY ==
[2023-03-28] VITALS (33 sets, daily range): BP systolic 103–137; BP diastolic 63–81; PULSE 69–88; RESP 13–24; TEMP 36.2–36.4; O2SAT 92–100
--- NOTE | 2023-03-28 | ECHO_ITS ---
Patient Info Name: Mikey Almonte Age: 72 years : 1950 Gender: Male Ht: 66 in Wt: 185 lbs BSA: 2.00 m2 HR: 70 bpm BP: 106 / 67 mmHg Heart Rhythm: Sinus Rhythm Technical Quality: Fair Exam Date: 03/28/2023 2:57 PM Exam Location: [facility] Patient Status: Outpatient Admit Date: 03/28/2023 Staff Ordering Physician: Minnie Corral NP Pourer Crane Ladle: Lilibeth Reno RDCS Attending Provider: Broderick Hampton MD Referring Physician: Ellis DAWSON; Exam Type: CA echo doppler color flow Study Info Indications R60.9 - Edema, unspecified Complete two-dimensional, color flow and Doppler transthoracic echocardiogram is performed. Summary 1. Complete two-dimensional, color flow and Doppler transthoracic echocardiogram is performed. 2. Left ventricular chamber dimension is normal. 3. Left ventricular systolic function is normal, estimated at 55-60%. 4. There is moderately increased left ventricular wall thickness. 5. The left ventricular diastolic function is grade I diastolic dysfunction. 6. D shaped septum in systole and diastole consistent with right ventricular pressure and volume overload. 7. Right ventricular chamber dimension is severely enlarged. 8. Right ventricular systolic function is reduced. 9. Left atrial chamber dimension is mildly enlarged. 10. Right atrial chamber dimension is severely enlarged. 11. There is mild aortic valve stenosis with a peak velocity of 110 cm/s, mean gradient of 2 mmHg, and aortic valve area of 2.0 cm2. 12. There is mild aortic valve regurgitation. 13. There is mild mitral valve regurgitation. 14. The mitral valve annulus is severely calcified. 15. There is moderate to severe tricuspid valve regurgitation. 16. Moderate pulmonary hypertension, estimated pulmonary arterial systolic pressure is 52 mmHg. Left Ventricle D shaped septum in systole and diastole consistent with right ventricular pressure and volume overload. Left ventricular chamber dimension is normal. Left ventricular systolic function is normal, estimated at 55-60%. There is moderately increased left ventricular wall thickness. The left ventricular diastolic function is grade I diastolic dysfunction. Right Ventricle Right ventricular chamber dimension is severely enlarged. Right ventricular systolic function is reduced. Left Atria Left atrial chamber dimension is mildly enlarged. Right Atria Right atrial chamber dimension is severely enlarged. Atrial Septum Intact interatrial septum visualized by color flow imaging. Aortic Valve The aortic valve is trileaflet. There is mild aortic valve stenosis with a peak velocity of 110 cm/s, mean gradient of 2 mmHg, and aortic valve area of 2.0 cm2. There is mild aortic valve regurgitation. Pulmonic Valve The pulmonic valve is normal. There is no pulmonic valve stenosis. There is trace pulmonic regurgitation. Mitral Valve The mitral valve has thickened leaflets. There is no mitral valve stenosis. There is mild mitral valve regurgitation. The mitral valve annulus is severely calcified. Tricuspid Valve The tricuspid valve leaflets do not completely close due to RV dilatation. There is no significant tricuspid valve stenosis. There is moderate to severe tricuspid valve regurgitation. Moderate pulmonary hypertension, estimated pulmonary arterial systolic pressure is 52 mmHg. Pericardium/Pleural The pericardium appears normal. There is no pericardial effusion. Inferior Vena Cava Dilated inferior vena cava with <50% collapse upon inspiration consistent with elevated right atrial pressur
--- NOTE | ~2023-03-28 | XR_ITS ---
XR chest 1V portable DATE: 03/30/2023 05:41 INDICATION: Congestive heart failure. Shortness of breath. TECHNIQUE: Portable upright AP chest on 03/30/2023 at 0533 hours COMPARISON: PA and lateral chest FINDINGS: Right upper lobe opacity is again noted. There are patchy infiltrates involving much of the right lung and left upper and lower lung, which may be due to interstitial fibrosis and/or active in filtrates History of recent right lung biopsy. No pneumothorax. Status post sternotomy. Aortic arch calcification. Diffuse osteopenia. IMPRESSION: Little interval change since 03/28/2023 Reviewed, dictated and finalized at location A.
--- NOTE | ~2023-03-28 | XR_ITS ---
EXAMINATION: XR chest 2V DATE: 03/28/2023 11:57 INDICATION: Hypoxia, recent lung biopsy TECHNIQUE: PA and lateral views of the chest are obtained. COMPARISON: 08/10/2019 FINDINGS: There is a nodular opacity of the right upper lobe. There are small pleural effusions. No p neumothorax is identified. Cardiomegaly is noted. Median sternotomy wires and mediastinal surgical cl ips are seen, likely from prior coronary artery bypass grafting. There is moderate thoracic spondylos is. IMPRESSION: 1. Right upper lobe nodule which may reflect the recently biopsied nodule described in the clinical h istory. No acute findings identified. Reviewed, dictated and finalized at location A. IMPRESSION: 1. Right upper lobe nodule which may reflect the recently biopsied nodule descr ibed in the clinical history. No acute findings identified.
--- NOTE | ~2023-03-28 | US_ITS ---
US renal BI 03/28/2023 16:07 Procedure: Realtime transabdominal ultrasound of the kidneys and bladder. Indication: Acute renal failure Comparison: Ultrasound dated 09/28/2014 Findings: Renal echotexture is normal bilaterally without hydronephrosis, contour deforming mass or r enal calculus. There is a 3.9 cm right renal cyst at the upper pole. The right kidney measures 10 cm and left kidney measures 9.5 cm. Bladder within normal limits. There is a small amount of ascites in the upper abdomen. Impression: 1: Right renal cyst measuring 3.9 cm. 2: Small volume of ascites. Reviewed, dictated and finalized at location [] Impression: 1: Right renal cyst measuring 3.9 cm. 2: Small volume of ascites.
--- NOTE | 2023-03-28 10:39 | ECG_ITS ---
Measurements Intervals [place] Rate: 72 P: 59 ME: 193 QRS: 34 QRSD: 142 T: -60 QT: 430 QTc: 473 Interpretive Statements SINUS RHYTHM WITH FREQUENT SUPRAVENTRICULAR PREMATURE COMPLEXES RIGHT BUNDLE BRANCH BLOCK [120+ ms QRS DURATION, UPRIGHT V1, 40+ ms S IN I/aVL/V4/V5/V6] NONSPECIFIC T-WAVE ABNORMALITY ABNORMAL ECG ] COMPARED TO ECG 08/10/2019 13:04:54 NO SIGNIFICANT CHANGES Electronically Signed On 03-28-2023 13:35:40 CDT by Broderick Mejía M.D.
[2023-03-28 11:14] LABS: Basophils Percent Auto 0.6 % (0.2-1.2); Eosinophils Absolute Auto 0.1 K/mm3 (0-0.3); Eosinophils Percent Auto 1.7 % (0-4.4); Hematocrit 41.4 % (42.0-52.0); Hemoglobin 13.6 g/dL (14.0-18.0); Immature Granulocyte Absolute 0.02 K/mm3 (0.00-0.031); Immature Granulocyte Percent A 0.4 % (0-0.5); Mean Corpuscular HGB Conc 32.9 g/dl (32-36); Mean Corpuscular Hemoglobin 35.3 pg (26-34); Mean Corpuscular Volume 107.5 fl (80-100); Mean Platelet Volume 10.4 fl (7.4-10.4); Monocytes Absolute Auto 0.8 K/mm3 (0.1-0.6); Monocytes Percent Auto 16.5 % (2.6-8.5); Neutrophils Absolute Auto 3.1 K/mm3 (1.3-6.7); Neutrophils Percent Auto 65.8 % (45.5-73.1); Platelet Count Result 100 k/mm3 (150-375); Red Blood Count 3.85 M/mm3 (4.6-6.20); Red Cell Distribution Width 15.5 % (11.5-14.5); White Blood Count 4.7 K/mm3 (4.5-10.0)
--- NOTE | 2023-03-28 11:20 | PC.NURSE ---
PT CALLED TO GO INTO ROOM. HE IS IN THE VESTIBULE ON A PHONE CALL AND WANTS TO WAIT TO GO INTO THE ROOM
[2023-03-28 11:23] LABS: Alanine Aminotransferase 32 U/L (6-50); Albumin Level 4.1 g/dL (3.5-5.1); Alkaline Phosphatase 99 U/L (38-126); Anion Gap 10 mmol/L (8-16); Aspartate Amino Transferase 35 U/L (17-59); Bilirubin,Total 2.3 mg/dL (0.2-1.3); Blood Urea Nitrogen 35 mg/dL (9-20); Calcium 8.7 mg/dL (8.4-10.2); Carbon Dioxide 27 mmol/L (22-30); Chloride 96 mmol/L (98-107); Estimated CRCL calculation 33 ml/min; Estimated Glomerular Filt Rate 37; Glucose 114 mg/dL (65-110); Potassium 4.1 mmol/L (3.4-5.0); Sodium 133 mmol/L (137-145)
[2023-03-28 11:24] LABS: INR 1.3; Prothrombin Time 16.8 Seconds (11.1-14.7)
[2023-03-28 11:26] LABS: Partial Thromboplastin Time 28.1 SECONDS (22.3-36.8)
--- NOTE | 2023-03-28 11:37 | PC.NURSE ---
Patient placed on 3L oxygen via nasal cannula at this time.
[2023-03-28 11:48] LABS: NT Pro B Type Natriuretic Pept 10400 pg/mL (19.9-100); Troponin I 0.041 ng/mL (0.000-0.034)
[2023-03-28] MEDS: FUROSEMIDE INJ 100 MG/10 ML VIAL 80 MG IV PUSH (12:54)
--- NOTE | 2023-03-28 13:00 | ED.SOB ---
HPI - SOB/Dyspnea General Chief Complaint: Shortness of Breath/Dyspnea Stated Complaint: O2 SATS 88% Time Seen by Provider: 03/28/23 12:01 History of Present Illness HPI Narrative: 72-year-old male with history of CHF, COPD, presenting with increasing dyspnea, worse with exertion. He has also noted increasing edema, his detective sergeant told him go to the ER because he was more short of breath and oxygen saturations were low at home. He has already gone up on his home torsemide the last few days. No chest pain. Related Data Home Medications Medication Instructions Recorded Confirmed atorvastatin 20 mg tablet 20 mg PO HS 08/10/19 01/31/21 metoprolol tartrate 25 mg tablet 12.5 mg PO BID 08/10/19 01/31/21 Allergies Allergy/AdvReac Type Severity Reaction Status Date / Time lisinopril AdvReac Mild MILD COUGH Verified 01/31/21 17:36 Review of Systems Review of Systems: CONST: No fever. HEENT: No sore throat C/V: No chest pain RESP: Increasing shortness of breath GI: No nausea, vomiting : No dysuria. M/S: Lower extremity edema SKIN: No rash. NEURO: [No headache or focal numbness or weakness] PSYCH: [No depression] [facility] Past Medical History Medical History CAD (coronary artery disease) Hyperlipidemia Hypertension Obesity HUANG (obstructive sleep apnea) Osteoarthritis Surgical History Surgical History Hx of CABG x4 vessel, 2014 Family History Family History Sibling Patient's brother is in good health Patient's sister is in good health Mother Family history of arthritis Family history of malignant neoplasm Social History Social History Social History: quit 10-15 years ago, smoked at least 1 PPD x 30 years prior Smoking packs per day: 1 Smoking cigarettes per day: 20.0 Years smoked: 37 Smoking pack-years: 37.00 Smoking status: Former smoker Tobacco type: cigarettes Second hand tobacco smoke exposure: No Smoking end date: 10/13/23 Alcohol intake: current Drinks per week: 28 Alcohol use details: 4 BEERS/DAY Substance use: never Substance use type: does not use Living arrangements: with family Additional living arrangements comments: Gender identity (if verbalized by the patient): Male Sexual Orientation (if Verbalized by the Patient): Straight or Heterosexual Spiritual care concerns: No Exam Narrative: EXAMINATION OF ORGAN SYSTEMS/BODY AREAS: Constitutional: Vital signs per nursing GENERAL:[No acute distress, non-toxic appearing.] HEAD: Normal with no signs of head trauma. EYES: EOMI, conjunctiva normal ENT: Hearing grossly intact LUNGS: Nonlabored breathing while at rest HEART: [Regular rate and rhythm] ABD: [Soft], [nontender to palpation] EXT: Normal range of motion, BLEE SKIN: [No rashes or lesions.] NEURO: [Alert and oriented x 3. No gross focal sensory or strength deficits.] PSYCH: Normal affect Course Vital Signs Vital signs: Vital Signs Temperature 97.6 F 03/28/23 10:40 Pulse Rate 70 03/28/23 10:40 Respiratory Rate 20 03/28/23 10:40 Blood Pressure 103/63 03/28/23 10:40 Pulse Oximetry 94 03/28/23 10:40 Oxygen Delivery Nasal Cannula 03/28/23 10:40 Oxygen Flow Rate 3 03/28/23 10:40 Temperature 97.6 F 03/28/23 10:40 Pulse Rate 70 03/28/23 12:57 Respiratory Rate 19 03/28/23 12:57 Blood Pressure 106/67 03/28/23 12:57 Pulse Oximetry 97 03/28/23 12:57 Oxygen Delivery Nasal Cannula 03/28/23 10:40 Oxygen Flow Rate 3 03/28/23 10:40 MDM - SOB/Dyspnea MDM Narrative Medical decision making narrative: 72-year-old male presenting with increasing shortness of breath over last few days, he does have a history of CHF and has been steadily trending up on his diuretic dose at home without
--- NOTE | 2023-03-28 13:35 | PM.IMHP ---
H&P: HPI History of Present Illness Date/Time: 03/28/23 13:35 Chief Complaint: Shortness of breath Narrative: This is a 72-year-old male patient has a history of congestive heart failure, see COPD and chronic hypoxia wearing oxygen at 2 L per nasal cannula. Patient has had worsening shortness of breath with exertion. He also noted increased edema. The patient has been taking torsemide at home without any affect on the edema. The patient even increased his torsemide without any affect. His H&H is 13.6 and 41.4. MCV is 107.5. Platelet count is only 100. Sodium is 133. BUN 35 creatinine 1.8. GFR is 37. Glucose is 114. Troponin is 0.041. The patient denies any chest pain. Chest x-ray was read as the following. Right upper lobe nodule which may reflect the recently biopsied nodule described in the clinical history. No acute findings identified. The stated that the biopsy was negative. EKG was read as sinus rhythm frequent SVTs and frequent PVCs. The patient was given IV Lasix in the emergency room. The patient is being admitted to observation the date of service 03/28/2023 Review of Systems Review of Systems: All systems reviewed & are unremarkable except as noted in HPI and below Constitutional: Constitutional: Reports as per HPI and Reports no additional constitutional complaints Eyes: Eyes: Reports as per HPI and Reports no additional eye complaints ENT: Reports system reviewed and no additional complaints, except as documented and Reports Normal hearing present Cardiovascular: Cardiovascular: Reports no additional cardiovascular complaints Respiratory: Respiratory: Reports no additional respiratory complaints and Reports no additional respiratory complaints Gastrointestinal: Gastrointestinal: Reports as per HPI and Reports no additional gastrointestinal complaints Musculoskeletal: Musculoskeletal: Reports no additional musculoskeletal complaints Integumentary/Breasts: Skin/Breast: Reports system reviewed and no additional complaints, except as docu and Reports as per HPI Neurologic: Reports system reviewed and no additional complaints, except as documented, Reports as per HPI and Reports Normal hearing present Psychiatric: Psychiatric: Reports no additional psychiatric complaints and Reports as per HPI Endocrine: Endocrine: Reports no additional endocrine complaints Hematologic/Lymphatic: Hematologic/Lymphatic: Reports no additional hematologic/lymphatic complaints Allergic/Immunologic: Allergic/Immunologic: Reports no additional allergic/immunologic complaints [facility] Past Medical History Medical History (Updated 03/28/23 @ 15:55 by Minnie Corral NP) CAD (coronary artery disease) COPD (chronic obstructive pulmonary disease) Hyperlipidemia Hypertension Obesity HUANG (obstructive sleep apnea) mouth piece Osteoarthritis Surgical History Surgical History (Updated 03/28/23 @ 15:41 by Minnie Corral NP) History of arthroplasty of left knee Hx of CABG x4 vessel, 2014 S/P cardiac cath S/P total knee arthroplasty asiya Status post right partial knee replacement Family History Family History Sibling Patient's brother is in good health Patient's sister is in good health Mother Family history of arthritis Family history of malignant neoplasm Social History Social History (Updated 03/28/23 @ 15:37 by Minnie Corral NP) Social History: He smoked at least 1 PPD x 30 years prior. 4 children . he is retired from [employer], he worked on the [employer] and also retired from [employer]. 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
[2023-03-28 16:12] LABS: Troponin I 0.032 ng/mL (0.000-0.034)
--- NOTE | 2023-03-28 17:33 | ADMGEN ---
This patient, Mikey Almonte, was admitted to IMU Room 203-01 on 03/28/23 at 1630. Patient/family oriented to hospital policies and general routines including ID bracelet, bed and alarms, visiting hours, pain management, procedures, bathroom and other care routines, personal items, smoking policy, room service/diet, and visiting hours. Information on how to activate the Rapid Response Team has been discussed. Patient/Family are encouraged to report perceived risks to care and to ask questions if they do not understand what they are told or what they should do.
[2023-03-28] MEDS: FUROSEMIDE INJ 40 MG/4 ML VIAL IV PUSH (18:02)
[2023-03-28 19:25] LABS: Troponin I 0.034 ng/mL (0.000-0.034)
[2023-03-28] MEDS: ATORVASTATIN 20 MG TABLET PO (22:23)
[2023-03-28] MEDS: METOPROLOL TARTRATE 12.5 MG TABLET PO (22:24)
[2023-03-29] VITALS (13 sets, daily range): BP systolic 118–130; BP diastolic 64–72; PULSE 64–89; RESP 18–24; TEMP 36.1–36.6; O2SAT 91–98
[2023-03-29 04:08] LABS: Basophils Percent Auto 0.8 % (0.2-1.2); Eosinophils Absolute Auto 0.1 K/mm3 (0-0.3); Eosinophils Percent Auto 2.5 % (0-4.4); Hematocrit 40.6 % (42.0-52.0); Hemoglobin 13.1 g/dL (14.0-18.0); Immature Granulocyte Absolute 0.02 K/mm3 (0.00-0.031); Immature Granulocyte Percent A 0.4 % (0-0.5); Immature Platelet Fraction Pct 8.3 % (0.9-11.2); Lymphocytes Absolute Auto 0.92 K/mm3 (0.9-3.2); Lymphocytes Percent Auto 19.3 % (18.3-44.2); Mean Corpuscular HGB Conc 32.3 g/dl (32-36); Mean Corpuscular Hemoglobin 34.5 pg (26-34); Mean Corpuscular Volume 106.8 fl (80-100); Mean Platelet Volume 11.1 fl (7.4-10.4); Monocytes Absolute Auto 0.6 K/mm3 (0.1-0.6); Monocytes Percent Auto 13.4 % (2.6-8.5); Neutrophils Percent Auto 63.6 % (45.5-73.1); Platelet Count Result 105 k/mm3 (150-375); Red Cell Distribution Width 15.2 % (11.5-14.5); White Blood Count 4.8 K/mm3 (4.5-10.0)
[2023-03-29 04:18] LABS: Lactic Acid Reflex 1.2 mmol/L (0.7-2.0)
[2023-03-29 04:22] LABS: Alanine Aminotransferase 32 U/L (6-50); Albumin Level 3.9 g/dL (3.5-5.1); Alkaline Phosphatase 126 U/L (38-126); Anion Gap 8 mmol/L (8-16); Aspartate Amino Transferase 34 U/L (17-59); Blood Urea Nitrogen 32 mg/dL (9-20); Calcium 8.4 mg/dL (8.4-10.2); Carbon Dioxide 29 mmol/L (22-30); Chloride 97 mmol/L (98-107); Estimated CRCL calculation 37 ml/min; Estimated Glomerular Filt Rate 42; Glucose 87 mg/dL (65-110); Magnesium 2.3 mg/dL (1.6-2.3); Potassium 3.2 mmol/L (3.4-5.0); Sodium 134 mmol/L (137-145)
[2023-03-29 04:36] LABS: Macrocytosis 2+ (NORMAL); Schistocytes Rare (NORMAL)
[2023-03-29] MEDS: UMECLIDINIUM/VILANTEROL 62.5-25 MCG ELLIPTA 1 PUFF INHALATION (08:18)
[2023-03-29] MEDS: ASPIRIN 81 MG CHEWABLE TABLET PO (11:00)
--- NOTE | 2023-03-29 11:01 | PM.IMPN ---
Progress Note: A&P Assessment and Plan (1) Acute exacerbation of CHF (congestive heart failure): Code(s): I50.9 - Heart failure, unspecified Status: Acute Assessment and Plan: An echo has been ordered. The patient has the ed teacher elsewhere. Patient's BNP is elevated 10,400. The patient has edema from his thighs down to his lower extremities. The patient had been on torsemide at home without any relief. The patient was given IV Lasix in the emergency room. Continue with IV Lasix twice a day. However the patient is in acute renal failure. Will need to monitor his renal functions closely. He had a slight bump in his troponin 0.041 which may be from either the renal failure or congestive heart failure. Patient has no complaints of chest pain but does complain of shortness of breath. At this point the patient does not want to see the ed teacher here. However if his troponin significantly increases then the patient his agreed that I could consult Cardiology here. (2) Chronic hyponatremia: Code(s): E87.1 - Hypo-osmolality and hyponatremia Status: Acute Assessment and Plan: May be related to his diuretic. His sodium is now 133. (3) CAD (coronary artery disease): Qualifiers: Coronary Disease-Associated Artery/Lesion type: bypass graft, autologous artery Associated angina: without angina Qualified Code(s): I25.810 - Atherosclerosis of coronary artery bypass graft(s) without angina pectoris Code(s): I25.10 - Atherosclerotic heart disease of [place] coronary artery without angina pectoris Status: Chronic Assessment and Plan: The patient has a history of 4 vessel CABG. The patient is on metoprolol and aspirin. Patient has no complaints of chest pain. Continue to trend troponins. (4) Hyperlipidemia: Qualifiers: Hyperlipidemia type: unspecified Qualified Code(s): E78.5 - Hyperlipidemia, unspecified Code(s): E78.5 - Hyperlipidemia, unspecified Status: Chronic Assessment and Plan: Continue with atorvastatin (5) Hypertension: Qualifiers: Hypertension type: unspecified Qualified Code(s): I10 - Essential (primary) hypertension Code(s): I10 - Essential (primary) hypertension Status: Chronic Assessment and Plan: Continue with metoprolol (6) COPD (chronic obstructive pulmonary disease): Code(s): J44.9 - Chronic obstructive pulmonary disease, unspecified Status: Acute Assessment and Plan: P.r.n. albuterol (7) Acute renal failure: Code(s): N17.9 - Acute kidney failure, unspecified Status: Acute Assessment and Plan: Renal ultrasound has been ordered. May consider Nephrology consult (8) Elevated troponin: Code(s): R77.8 - Other specified abnormalities of plasma proteins Status: Acute Assessment and Plan: Troponin is mildly elevated. May be related to his renal failure or the congestive heart failure. Subjective Date/time seen: 03/29/23 11:01 Interval history: Breathing better Exam Const: General: cooperative, healthy appearing, comfortable, no acute distress, well developed, alert, awake, Physically active, average body habitus and well nourished Nutritional Appearance: average body habitus and well nourished Orientation/consciousness: oriented to person, oriented to place, oriented to time and patient oriented x3 Limitations: no limitations HENMT: Head: normal to inspection, No palpable skull fracture present, normocephalic and atraumatic Ears: hearing grossly normal bilaterally and external ears normal Face/Nose/Sinus: Normal external nose present and Normal nares present Eyes: General: appearance normal, both eyes and all related structures Alignment and Position: alignment normal Periorbital: periorbital findings normal Eyelids: eyelids normal Sclera: sclerae normal Pupils: Equal, round and reactive pupils present EOM: EO
[2023-03-29] MEDS: POTASSIUM CHLORIDE 20 MEQ ER TABLET 40 MEQ PO (11:05)
[2023-03-29] MEDS: FUROSEMIDE INJ 40 MG/4 ML VIAL IV PUSH ×2 (11:05→17:08)
[2023-03-29] MEDS: METOPROLOL TARTRATE 12.5 MG TABLET PO ×2 (11:07→20:23)
[2023-03-29] MEDS: POTASSIUM CHLORIDE 20 MEQ ER TABLET PO (11:10)
--- NOTE | 2023-03-29 13:29 | PC.NURSE ---
This patient, Mikey Almonte, was received from [facility] on 03/29/23 at 1320. Patient/family oriented to unit policies and routines.
[2023-03-29 17:28] LABS: Total Triiodothyronine (T3) 1.04 NG/ML (0.97-1.69)
[2023-03-29] MEDS: ATORVASTATIN 20 MG TABLET PO (20:23)
[2023-03-30 05:13] VITALS: BP 104/57; PULSE 68; RESP 18; TEMP 36.6; O2SAT 96
[2023-03-30 05:40] LABS: Basophils Absolute Auto 0.1 K/mm3 (0.0-0.1); Basophils Percent Auto 1.2 % (0.2-1.2); Eosinophils Absolute Auto 0.1 K/mm3 (0-0.3); Eosinophils Percent Auto 2.5 % (0-4.4); Hematocrit 40.4 % (42.0-52.0); Hemoglobin 13.1 g/dL (14.0-18.0); Immature Granulocyte Absolute 0.02 K/mm3 (0.00-0.031); Immature Granulocyte Percent A 0.5 % (0-0.5); Immature Platelet Fraction Pct 6.7 % (0.9-11.2); Lymphocytes Absolute Auto 1.02 K/mm3 (0.9-3.2); Lymphocytes Percent Auto 23.6 % (18.3-44.2); Mean Corpuscular HGB Conc 32.4 g/dl (32-36); Mean Corpuscular Hemoglobin 34.9 pg (26-34); Mean Corpuscular Volume 107.7 fl (80-100); Mean Platelet Volume 10.1 fl (7.4-10.4); Monocytes Absolute Auto 0.7 K/mm3 (0.1-0.6); Monocytes Percent Auto 15.5 % (2.6-8.5); Neutrophils Absolute Auto 2.5 K/mm3 (1.3-6.7); Neutrophils Percent Auto 56.7 % (45.5-73.1); Platelet Count Result 102 k/mm3 (150-375); Red Blood Count 3.75 M/mm3 (4.6-6.20); Red Cell Distribution Width 15.1 % (11.5-14.5); White Blood Count 4.3 K/mm3 (4.5-10.0)
[2023-03-30 05:47] LABS: Anion Gap 6 mmol/L (8-16); Blood Urea Nitrogen 29 mg/dL (9-20); Calcium 8.6 mg/dL (8.4-10.2); Carbon Dioxide 30 mmol/L (22-30); Chloride 99 mmol/L (98-107); Estimated CRCL calculation 40 ml/min; Estimated Glomerular Filt Rate 46; Glucose 88 mg/dL (65-110); Potassium 3.7 mmol/L (3.4-5.0); Sodium 135 mmol/L (137-145)
[2023-03-30] MEDS: UMECLIDINIUM/VILANTEROL 62.5-25 MCG ELLIPTA 1 PUFF INHALATION (07:21)
[2023-03-30 07:23] VITALS: O2SAT 73
[2023-03-30 07:25] VITALS: O2SAT 84
[2023-03-30 07:27] VITALS: O2SAT 90
[2023-03-30 09:23] VITALS: PULSE 86
[2023-03-30] MEDS: METOPROLOL TARTRATE 12.5 MG TABLET PO (09:23)
[2023-03-30] MEDS: ASPIRIN 81 MG CHEWABLE TABLET PO (09:23)
[2023-03-30] MEDS: POTASSIUM CHLORIDE 20 MEQ ER TABLET PO (09:23)
[2023-03-30] MEDS: FUROSEMIDE INJ 40 MG/4 ML VIAL IV PUSH (09:25)
--- NOTE | 2023-03-30 10:49 | PM.DS ---
DS: Admitting Diagnosis Discharge Date March 30, 2023 Admitting Diagnosis CHF exacerbation DS: Discharge Diagnosis Discharge Diagnosis (1) Acute exacerbation of CHF (congestive heart failure): Code(s): I50.9 - Heart failure, unspecified Status: Acute Assessment and Plan: An echo has been ordered. The patient has the tower truck driver elsewhere. Patient's BNP is elevated 10,400. The patient has edema from his thighs down to his lower extremities. The patient had been on torsemide at home without any relief. The patient was given IV Lasix in the emergency room. Continue with IV Lasix twice a day. However the patient is in acute renal failure. Will need to monitor his renal functions closely. He had a slight bump in his troponin 0.041 which may be from either the renal failure or congestive heart failure. Patient has no complaints of chest pain but does complain of shortness of breath. At this point the patient does not want to see the tower truck driver here. However if his troponin significantly increases then the patient his agreed that I could consult Cardiology here. (2) Chronic hyponatremia: Code(s): E87.1 - Hypo-osmolality and hyponatremia Status: Acute Assessment and Plan: May be related to his diuretic. His sodium is now 133. (3) CAD (coronary artery disease): Qualifiers: Coronary Disease-Associated Artery/Lesion type: bypass graft, autologous artery Associated angina: without angina Qualified Code(s): I25.810 - Atherosclerosis of coronary artery bypass graft(s) without angina pectoris Code(s): I25.10 - Atherosclerotic heart disease of [place] coronary artery without angina pectoris Status: Chronic Assessment and Plan: The patient has a history of 4 vessel CABG. The patient is on metoprolol and aspirin. Patient has no complaints of chest pain. Continue to trend troponins. (4) Hyperlipidemia: Qualifiers: Hyperlipidemia type: unspecified Qualified Code(s): E78.5 - Hyperlipidemia, unspecified Code(s): E78.5 - Hyperlipidemia, unspecified Status: Chronic Assessment and Plan: Continue with atorvastatin (5) Hypertension: Qualifiers: Hypertension type: unspecified Qualified Code(s): I10 - Essential (primary) hypertension Code(s): I10 - Essential (primary) hypertension Status: Chronic Assessment and Plan: Continue with metoprolol (6) COPD (chronic obstructive pulmonary disease): Code(s): J44.9 - Chronic obstructive pulmonary disease, unspecified Status: Acute Assessment and Plan: P.r.n. albuterol (7) Acute renal failure: Code(s): N17.9 - Acute kidney failure, unspecified Status: Acute Assessment and Plan: Renal ultrasound has been ordered. May consider Nephrology consult (8) Elevated troponin: Code(s): R77.8 - Other specified abnormalities of plasma proteins Status: Acute Assessment and Plan: Troponin is mildly elevated. May be related to his renal failure or the congestive heart failure. DS: Summary Hospital Course Hospital Course: Patient is a 72-year-old gentleman came in with CHF exacerbation. He has known RV dysfunction. Systolic function is normal. He does have some underlying lung disease which he follows with a estimator and drafter for. He also follows with his tower truck driver in [place]. Patient was given some diuretics and improved significantly. He is able to do his normal activities and says he feels like his breathing is the best it has been 4 years after some diuretic therapy. He does take diuretics at home and has plenty of diuretics at home and he is going to increase his dose slightly and follow-up with his tower truck driver next week. He is also follow up with his estimator and drafter. Time Spent with Patient Time attestation: Total time spent providing and/or coordinating discharge services: Exam Const: General: malcom
== END 2023-03-30 11:22 | disposition home or self-care (01) | DRG 292 ==
LOC: ANHED 13:11 → ANHIMU 14:07 → ANH3MED 03-29 12:55
PROVIDERS: Emergency Medicine; Nurse Practitioner; Admitting Provider Chiropractor; Emergency Provider Emergency Medicine; PCP Family Medicine Sports Medicine; Visit Provider Chiropractor
DX: I11.0 Hypertensive heart disease with heart failure (principal); E87.1 Hypo-osmolality and hyponatremia; I25.810 Atherosclerosis of coronary artery bypass graft(s) without angina pectoris; N17.9 Acute kidney failure, unspecified; R09.02 Hypoxemia; I50.9 Heart failure, unspecified; E78.5 Hyperlipidemia, unspecified; G47.33 Obstructive sleep apnea (adult) (pediatric); J44.9 Chronic obstructive pulmonary disease, unspecified; M19.90 Unspecified osteoarthritis, unspecified site; R77.8 Other specified abnormalities of plasma proteins; Z87.891 Personal history of nicotine dependence; Z95.1 Presence of aortocoronary bypass graft; Z79.82 Long term (current) use of aspirin
CPT/HCPCS: 36415; 71045; 71046; 76775; 80048; 80053; 83605; 83735; 83880; 84439; 84443; 84480; 84484; 85025; 85055; 85610; 85730; 93005; 93306; 94640; 96374; 96376; 99285; A9270; G0378; J1940

== ENCOUNTER 2023-05-06 12:37 | Inpatient (IN) | payer MEDICARE, SELFPAY ==
[2023-05-06] VITALS (7 sets, daily range): BP systolic 91–103; BP diastolic 47–61; PULSE 70–81; RESP 18–20; TEMP 36.5–36.8; O2SAT 91–97; BMI 25.3
--- NOTE | ~2023-05-06 | XR_ITS ---
XR chest 1V portable 05/06/2023 14:29 Indication: Weakness. Procedure: AP portable chest Comparison: Comparison to multiple prior studies sequentially, with oldest reviewed study dated 12/20. Findings: Status post median sternotomy for CABG. Cardiomegaly. Coarse bilateral interstitial infiltr ates bilaterally and peripherally, likely chronic interstitial lung disease. No significant effusion. No acute focal pneumonia, pneumothorax or acute osseous abnormality. Impression: 1: No significant change to chronic interstitial infiltrates, likely pulmonary fibrosis Reviewed, dictated and finalized at location A. Impression: 1: No significant change to chronic interstitial infiltrates, likely pulmonary fibrosis
--- NOTE | ~2023-05-06 | US_ITS ---
EXAMINATION: US carotid duplex BI DATE: 05/07/2023 08:54 INDICATION: Syncope TECHNIQUE: Grayscale, color Doppler, and pulsed Doppler images of the cervical carotid arteries were obtained. The degree of vessel stenosis is placed in one of the following categories: normal, <50%, 5 0-69%, >=70% but less than near-occlusion, near-occlusion, or total occlusion. Note that percent sten osis relative to normal distal artery lumen diameter is indirectly measured from velocity measurement s as described by Isaiah, et al. Radiology 2003; [id number]. COMPARISON: None. FINDINGS: RIGHT: The right common carotid artery (CCA) peak systolic velocity (PSV) is 71 cm/s. The right internal car otid artery (ICA) PSV is 104 cm/s. The right ICA end-diastolic velocity (EDV) is 18 cm/s. The right I CA/CCA PSV ratio is 1.5. Grayscale and color Doppler images yield an estimate of <50% diameter reduct ion from plaque in the ICA. The external carotid artery (ECA) PSV is 86 cm/s. There is antegrade flow in the right vertebral artery. LEFT: The left CCA PSV is 72 cm/s. The left ICA PSV is 65 cm/s. The left ICA EDV is 15 cm/s. The left ICA/C CA PSV ratio is 0.9. Grayscale and color Doppler images yield an estimate of <50% diameter reduction from plaque in the ICA. The ECA PSV is 97 cm/s. There is antegrade flow in the left vertebral artery. IMPRESSION: 1. <50% stenosis in the right internal carotid artery. 2. <50% stenosis in the left internal carotid artery. Reviewed, dictated and finalized at location A.
[2023-05-06 13:04] LABS: Basophils Percent Auto 0.9 % (0.2-1.2); Eosinophils Percent Auto 0.7 % (0-4.4); Hematocrit 41.7 % (42.0-52.0); Immature Granulocyte Absolute 0.05 K/mm3 (0.00-0.031); Immature Granulocyte Percent A 1.2 % (0-0.5); Immature Platelet Fraction Pct 8.9 % (0.9-11.2); Lymphocytes Absolute Auto 0.65 K/mm3 (0.9-3.2); Lymphocytes Percent Auto 15.3 % (18.3-44.2); Mean Corpuscular HGB Conc 33.6 g/dl (32-36); Mean Corpuscular Hemoglobin 34.3 pg (26-34); Mean Corpuscular Volume 102.2 fl (80-100); Mean Platelet Volume 10.6 fl (7.4-10.4); Monocytes Absolute Auto 0.6 K/mm3 (0.1-0.6); Monocytes Percent Auto 15.1 % (2.6-8.5); Neutrophils Absolute Auto 2.8 K/mm3 (1.3-6.7); Neutrophils Percent Auto 66.8 % (45.5-73.1); Platelet Count Result 112 k/mm3 (150-375); Red Blood Count 4.08 M/mm3 (4.6-6.20); Red Cell Distribution Width 15.3 % (11.5-14.5); White Blood Count 4.3 K/mm3 (4.5-10.0)
[2023-05-06 13:12] LABS: Alanine Aminotransferase 32 U/L (6-50); Albumin Level 4.5 g/dL (3.5-5.1); Alkaline Phosphatase 104 U/L (38-126); Anion Gap 9 mmol/L (8-16); Aspartate Amino Transferase 33 U/L (17-59); Bilirubin,Total 2.3 mg/dL (0.2-1.3); Blood Urea Nitrogen 44 mg/dL (9-20); Calcium 9.4 mg/dL (8.4-10.2); Carbon Dioxide 29 mmol/L (22-30); Chloride 85 mmol/L (98-107); Estimated CRCL calculation 36 ml/min; Estimated Glomerular Filt Rate 46; Glucose 108 mg/dL (65-110); Potassium 5.2 mmol/L (3.4-5.0); Sodium 123 mmol/L (137-145)
--- NOTE | 2023-05-06 13:37 | ECG_ITS ---
Measurements Intervals [place] Rate: 71 P: 58 CO: 187 QRS: 21 QRSD: 142 T: -10 QT: 418 QTc: 455 Interpretive Statements SINUS RHYTHM ATRIAL AND VENTRICULAR PREMATURE COMPLEXES RIGHT BUNDLE BRANCH BLOCK ABNORMAL ECG COMPARED TO ECG 03/28/2023 11:00:14 NO SIGNIFICANT CHANGES Electronically Signed On 05-06-2023 14:09:49 CDT by Zac Aleman D.O.
--- NOTE | 2023-05-06 14:22 | ED.RECABL ---
HPI - Recheck/Abnormal Lab/Rx General Chief Complaint: Recheck/Abnormal Lab/Rx Stated Complaint: abnormal labs Time Seen by Provider: 05/06/23 13:20 Source: patient, family, RN notes reviewed and old records reviewed Mode of arrival: wheelchair Limitations: no limitations History of Present Illness HPI narrative: This is a 72 year old with history of CHF, kidney disease, CAD, COPD who presents for evaluation of abnormal labs. Patient's states patient gets labs done on a weekly basis due to kidney, heart and lung disease. HE has labs drawn at [facility] and the results returned today with sodium of 119. They are not aware of patient having an issue with low sodium in the past. They do report patient had syncope episode 1 week ago at home and he also had syncopal episode on while waiting at [facility]. He was evaluated in ER at [facility] on and he had to get jaqueline placed in his scalp. He denies chest pain or shortness of breath. He is on torsemide and spironolactone. He was taking metolazone until 04/23. He denies vomiting, diarrhea. He states he just does not feel well in general. Related Data Home Medications Medication Instructions Recorded Confirmed atorvastatin 20 mg tablet 20 mg PO HS 08/10/19 05/06/23 metoprolol tartrate 25 mg tablet 12.5 mg PO Q12H 08/10/19 05/06/23 aspirin 81 mg chewable tablet 81 mg PO DAILY 03/28/23 05/06/23 (Children's Aspirin) potassium chloride 20 mEq 20 meq PO DAILY 03/28/23 05/06/23 tablet,extended release(part/cryst) (Klor-Con M) spironolactone 25 mg tablet 25 mg PO DAILY 03/28/23 05/06/23 torsemide 20 mg tablet See Rx Instructions .Route .COMPLEX 03/28/23 05/06/23 umeclidinium 62.5 mcg-vilanterol 1 inh inhalation DAILY 03/28/23 05/06/23 25 mcg/actuation powdr for inhalation (Anoro Ellipta) empagliflozin 10 mg tablet 10 mg PO DAILY 05/06/23 05/06/23 (Jardiance) mycophenolate mofetil 500 mg tablet 500 mg PO BID 05/06/23 05/06/23 Allergies Allergy/AdvReac Type Severity Reaction Status Date / Time lisinopril AdvReac Mild MILD COUGH Verified 01/31/21 17:36 Review of Systems Constitutional: Constitutional: Reports fatigue and Reports weakness Cardiovascular: Cardiovascular: Denies syncope, Denies rapid heart rate, Denies irregular heart rhythm, Denies leg edema and Denies dyspnea Respiratory: Respiratory: Denies chest congestion, Denies hemoptysis, Denies excessive phlegm production and Denies dyspnea Gastrointestinal: Gastrointestinal: Denies abdominal pain, Denies hematochezia, Denies diarrhea and Denies vomiting Genitourinary: Genitourinary: Denies hematuria, Denies dysuria, Denies penile discharge and Denies testicular pain Musculoskeletal: Musculoskeletal: Denies joint swelling, Denies loss of height and Denies muscle weakness Neurologic: Reports syncope, Denies focal weakness and Denies weakness [facility] Past Medical History Medical History (Updated 05/07/23 @ 17:35 by Ariana Godfrey MD) Chronic interstitial lung disease Chronic obstructive pulmonary disease Chronic respiratory failure with hypoxia, on home oxygen therapy Coronary artery disease Hyperlipidemia Hypertension Obesity Obstructive sleep apnea Osteoarthritis Psoriasis Surgical History Surgical History (Updated 05/06/23 @ 17:20 by Silvia Spencer PA-C) History of cardiac catheterization History of cataract extraction History of four vessel coronary artery bypass graft (2014) History of heart artery stent History of partial knee replacement Left knee on 08/25/2019. Right knee on 01/31/2021. History of vasectomy Family History Family History Sibling Patient's brother is in good health ALS (amyotrophic lateral sclerosis) Heart attack Mother Family history of malignant neoplasm Family history of arthritis Father Heart attack Social History Social History (Updated 05/06/23 @ 22:14 by Silvia Spencer PA-C
[2023-05-06] MEDS: SODIUM CHLORIDE 0.9% IV 500 ML 999 ML IV CONT (14:32)
[2023-05-06 15:04] LABS: Appearance Urine Clear (Clear); Bilirubin Urine Negative (Negative); Blood Urine Negative (Negative); Color Urine Yellow (Yellow); Glucose Urine UA Trace mg/dL (Negative); Ketones Urine Negative (Negative); Leukocyte Esterase Ur Negative LEU/UL (Negative); Nitrate Urine Negative (Negative); Protein Urine Negative (Negative); pH Urine 7.5 (5.0-9.0)
[2023-05-06 15:05] LABS: Add Urine Microscopic? NO
[2023-05-06 15:13] LABS: Creatinine Urine 40.1 mg/dL; Total Protein Urine Random 26 mg/dL
[2023-05-06 15:14] LABS: Sodium Urine Random < 5 meq/L
--- NOTE | 2023-05-06 16:50 | PM.IMHP ---
H&P: HPI History of Present Illness Date/Time: 05/06/23 17:00 Chief Complaint: Low sodium. Narrative: This is a very pleasant 72-year-old male with coronary artery disease, congestive heart failure, chronic respiratory failure on p.r.n. oxygen, interstitial lung disease, and chronic obstructive pulmonary disease who presented to the emergency department for evaluation of low sodium level found on routine labs drawn yesterday. The patient provides the following history. He was hospitalized in March with CHF exacerbation and he diuresed well however his BUN and creatinine did increase from baseline and it looks like he is on several diuretics including torsemide, spironolactone, and metolazone twice a week. He was instructed to stop taking the metolazone on April 23 and he was referred to a social service director affiliated with [facility]. Last week on his way to the appointment he had a syncopal episode while in the lobby. He was seen in the ER at that facility and he had jaqueline placed in his scalp. He was discharged home unfortunately never made the appointment. He admits to having a syncopal episode 1 week prior to that as well while getting on dressed for bed. He does not necessarily recall having prodromal symptoms but he does admit that his energy has been decreased recently. He has otherwise been feeling okay and he has no specific complaints. He denies lightheadedness, dizziness, chest pain, pleuritic pain, palpitations, nausea, vomiting, decreased appetite, diarrhea, dysuria, and change in urine output. Review of Systems Review of Systems: Twelve systems were reviewed and are negative except for as per HPI. [facility] Past Medical History Medical History (Updated 05/06/23 @ 22:15 by Silvia Spencer PA-C) Chronic interstitial lung disease Chronic obstructive pulmonary disease Chronic respiratory failure with hypoxia, on home oxygen therapy Coronary artery disease Hyperlipidemia Hypertension Obesity Obstructive sleep apnea Osteoarthritis Psoriasis Surgical History Surgical History (Updated 05/06/23 @ 17:20 by Silvia Spencer PA-C) History of cardiac catheterization History of cataract extraction History of four vessel coronary artery bypass graft (2014) History of heart artery stent History of partial knee replacement Left knee on 08/25/2019. Right knee on 01/31/2021. History of vasectomy Family History Family History Sibling Patient's brother is in good health ALS (amyotrophic lateral sclerosis) Heart attack Mother Family history of malignant neoplasm Family history of arthritis Father Heart attack Social History Social History (Updated 05/06/23 @ 22:14 by Silvia Spencer PA-C) Social History: Surrogate medical decision maker: Shea Gironmers, spouse. Code status: Full code. Smoking status: Former smoker Tobacco type: cigarettes Second hand tobacco smoke exposure: No Additional smoking assessment comments: Smoked up to 2 packs of cigarettes per day Alcohol intake: current Drinks per week: 7 Alcohol use details: One glass of wine a night. Substance use: never Substance use type: does not use Lack of Transportation: No Lack of Food: Never True Current Housing: I Have Housing Concerned About Future Housing: No Difficulty Paying Gas/Electric Bills: No Difficulty Paying for Meds: No Currently Unemployed: No Education: High School Diploma/GED Difficulty w/ Childcare or Family Care: No Living arrangements: with family Additional living arrangements comments: Lives with spouse in [place]. Additional occupation/education comments: Retired from [employer]. Spiritual care concerns: No Meds Home Medications and Allergies Home Medications Medication Instructions Recorded Confirmed Type atorvastatin 20 mg tablet 20 mg PO HS 08/10/19 05/06/23 History metoprolol tartrate 25 mg tablet 12.5 mg PO Q12
--- NOTE | 2023-05-06 17:28 | PC.NURSE ---
This patient, Mikey Almonte, was admitted to Medical Room 340-01. Patient/family oriented to hospital policies and general routines including ID bracelet, bed and alarms, visiting hours, pain management, procedures, bathroom and other care routines, personal items, smoking policy, room service/diet, and visiting hours. Information on how to activate the Rapid Response Team has been discussed. Patient/Family are encouraged to report perceived risks to care and to ask questions if they do not understand what they are told or what they should do.
[2023-05-06 18:43] LABS: Immature Reticulocyte Fraction 19.9 % (3.0-15.9); Reticulocyte Hemoglobin Conten 36.7 pg (28.2-35.7); Reticulocyte Percent 2.34 % (0.7-4.3); Reticulocytes Absolute 0.09 M/mm3 (0.02-0.1)
[2023-05-06 18:56] LABS: Anion Gap 11 mmol/L (8-16); Blood Urea Nitrogen 42 mg/dL (9-20); Calcium 9.1 mg/dL (8.4-10.2); Carbon Dioxide 29 mmol/L (22-30); Chloride 87 mmol/L (98-107); Estimated CRCL calculation 36 ml/min; Estimated Glomerular Filt Rate 46; Glucose 108 mg/dL (65-110); Potassium 4.4 mmol/L (3.4-5.0); Sodium 127 mmol/L (137-145)
[2023-05-06] MEDS: METOPROLOL TARTRATE 12.5 MG TABLET PO (23:04)
[2023-05-06] MEDS: ATORVASTATIN 20 MG TABLET PO (23:04)
[2023-05-06] MEDS: mycophenolate mofetiL 250 MG CAPSULE 500 MG PO (23:22)
[2023-05-06 23:44] LABS: Sodium 125 mmol/L (137-145)
[2023-05-07] VITALS (15 sets, daily range): BP systolic 92–115; BP diastolic 47–63; PULSE 65–87; RESP 16–18; TEMP 36.1–37; O2SAT 93–100
[2023-05-07 01:49] LABS: Urea Random Urine 505 MG/DL
[2023-05-07 01:58] LABS: Creatinine Urine 45.8 mg/dL
[2023-05-07 02:00] LABS: Iron 91 ug/dL (49-181)
[2023-05-07 02:10] LABS: Percent Iron Saturation 25 % (20-50)
[2023-05-07 02:30] LABS: Sodium Urine Random < 5 meq/L
[2023-05-07 05:41] LABS: Basophils Percent Auto 0.6 % (0.2-1.2); Eosinophils Absolute Auto 0.1 K/mm3 (0-0.3); Eosinophils Percent Auto 1.3 % (0-4.4); Hematocrit 37.5 % (42.0-52.0); Hemoglobin 12.2 g/dL (14.0-18.0); Immature Granulocyte Absolute 0.04 K/mm3 (0.00-0.031); Immature Granulocyte Percent A 0.8 % (0-0.5); Immature Platelet Fraction Pct 7.6 % (0.9-11.2); Lymphocytes Absolute Auto 0.62 K/mm3 (0.9-3.2); Lymphocytes Percent Auto 13.1 % (18.3-44.2); Mean Corpuscular HGB Conc 32.5 g/dl (32-36); Mean Corpuscular Hemoglobin 33.5 pg (26-34); Mean Platelet Volume 10.6 fl (7.4-10.4); Monocytes Absolute Auto 0.7 K/mm3 (0.1-0.6); Neutrophils Absolute Auto 3.3 K/mm3 (1.3-6.7); Neutrophils Percent Auto 70.2 % (45.5-73.1); Platelet Count Result 101 k/mm3 (150-375); Red Blood Count 3.64 M/mm3 (4.6-6.20); Red Cell Distribution Width 15.2 % (11.5-14.5); White Blood Count 4.7 K/mm3 (4.5-10.0)
[2023-05-07 05:51] LABS: Alanine Aminotransferase 29 U/L (6-50); Albumin Level 3.6 g/dL (3.5-5.1); Alkaline Phosphatase 101 U/L (38-126); Anion Gap 9 mmol/L (8-16); Aspartate Amino Transferase 30 U/L (17-59); Bilirubin,Total 1.9 mg/dL (0.2-1.3); Blood Urea Nitrogen 40 mg/dL (9-20); Calcium 8.7 mg/dL (8.4-10.2); Carbon Dioxide 25 mmol/L (22-30); Chloride 89 mmol/L (98-107); Estimated CRCL calculation 42 ml/min; Estimated Glomerular Filt Rate 54; Glucose 132 mg/dL (65-110); Potassium 4.7 mmol/L (3.4-5.0); Sodium 123 mmol/L (137-145)
[2023-05-07] MEDS: SODIUM CHLORIDE 0.9% IV 1,000 ML 75 ML IV CONT (06:03)
--- NOTE | 2023-05-07 08:42 | PC.NURSE ---
Patient off of unit to US
--- NOTE | 2023-05-07 08:47 | PM.IMPN ---
Progress Note: A&P Assessment and Plan (1) Hyponatremia: Code(s): E87.1 - Hypo-osmolality and hyponatremia Status: Acute Assessment and Plan: -Na on admission was 127-->125-->123-->127. Assuming this is a chronic hyponatremia. -Q 6 hour Na -nephrology consulted, appreciate recs -NS at 75 ml per hour -lipid panel ordered for tomorrow am -serum osmo pending -urine sodium <5 -was on metolazone but was stopped on April 23. Holding all diuretics at this time. patient appears euvolemic -Recently finished a prednisone taper. Will do cortisol stim test in the am. (2) Hyperkalemia: Code(s): E87.5 - Hyperkalemia Status: Acute Assessment and Plan: K initially elevated at 5.2. Now normalized. -holding klor-karin (3) Renal failure: Code(s): N19 - Unspecified kidney failure Status: Acute Assessment and Plan: Cr on admission 1.5-->1.3 today after fluids Unsure of baseline (4) Syncope: Code(s): R55 - Syncope and collapse Status: Acute Assessment and Plan: -2 episodes without prodromal symptoms. 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 He had to be seen in the ED for laceration requiring jaqueline. -telemetry ordered -Carotid duplex 05/07 -less than 50% stenosis to both right and left ICA -ECHO from 03/28/2023 Summary ? 1. Complete two-dimensional, color flow and Doppler transthoracic echocardiogram is performed. ? 2. Left ventricular chamber dimension is normal. ? 3. Left ventricular systolic function is normal, estimated at 55-60%. ? 4. There is moderately increased left ventricular wall thickness. ? 5. The left ventricular diastolic function is grade I diastolic dysfunction. ? 6. D shaped septum in systole and diastole consistent with right ventricular pressure and volume overload. ? 7. Right ventricular chamber dimension is severely enlarged. ? 8. Right ventricular systolic function is reduced. ? 9. Left atrial chamber dimension is mildly enlarged. ? 10. Right atrial chamber dimension is severely enlarged. ? 11. There is mild aortic valve stenosis with a peak velocity of 110 cm/s, mean gradient of 2 mmHg, and aortic valve area of 2.0 cm2. ? 12. There is mild aortic valve regurgitation. ? 13. There is mild mitral valve regurgitation. ? 14. The mitral valve annulus is severely calcified. ? 15. There is moderate to severe tricuspid valve regurgitation. ? 16. Moderate pulmonary hypertension, estimated pulmonary arterial systolic pressure is 52 mmHg. -PT/OT ordered (5) Chronic obstructive pulmonary disease: Code(s): J44.9 - Chronic obstructive pulmonary disease, unspecified Status: Acute Assessment and Plan: On oxygen at home. 2-3 L NC baseline at bedtime and as needed during the day. No acute exacerbation. Chronic non-productive cough. -Anoro Ellipta restarted this admission (6) Coronary artery disease: Code(s): I25.10 - Atherosclerotic heart disease of i[place]qu[place] coronary artery without angina pectoris Status: Acute Assessment and Plan: -ordered am lipid panel -on atorvastatin 20 mg po daily. continue this admission (7) Chronic respiratory failure with hypoxia, on home oxygen therapy: Code(s): J96.11 - Chronic respiratory failure with hypoxia; Z99.81 - Dependence on supplemental oxygen Status: Acute Assessment and Plan: -normally on 2-3 L NC at night and sometimes during the day. -NYHA Class II with chronic diastolic heart failure, see ECHO above -follows with cardiology at [facility] (8) Chronic interstitial lung disease: Code(s): J84.9 - Interstitial pulmonary disease, unspecified Status: Acute Subjective Date/time seen: 05/07/23 08:47 Interval history: HPI obtained from chart: This is a very pleasant 72-year-old male with coronary artery disease, congestive heart failure, chronic respiratory failure on p.r.n. oxygen, inters
--- NOTE | 2023-05-07 09:04 | PC.NURSE ---
Patient returned to unit from US
[2023-05-07] MEDS: ASPIRIN 81 MG CHEWABLE TABLET PO (09:06)
[2023-05-07] MEDS: METOPROLOL TARTRATE 12.5 MG TABLET PO ×2 (09:07→20:06)
[2023-05-07] MEDS: mycophenolate mofetiL 250 MG CAPSULE 500 MG PO ×2 (09:07→20:07)
[2023-05-07] MEDS: UMECLIDINIUM/VILANTEROL 62.5-25 MCG ELLIPTA 1 PUFF INHALATION (09:12)
--- NOTE | 2023-05-07 09:49 | PC.NURSE ---
Inpatient Auditor called Daphney in regards to Echo order as patient just had one previously done on 03/28/2023.
[2023-05-07 10:46] LABS: Sodium 127 mmol/L (137-145)
--- NOTE | 2023-05-07 13:04 | P.CONNP_ITS ---
Assessment and Plan Assessment and plan (1) Hyponatremia: Code(s): E87.1 - Hypo-osmolality and hyponatremia Status: Chronic Assessment and Plan: * acute on chronic * has had issues with low sodium as far back as 2014 (from review of [facility] records) * however, seems more significant/pronounced in the last few months: * since March, sodium running ~ 124 - 133mmol/L * however, has been as high as 135 - 140mmol/L earlier this year * suspect related to high dose diuretic therapy needed to maintain volume status * other likely contributing factors: * chronic lung disease (COPD + ILD) * diuretics (including metolazone which is a thiazide diuretic) * increased free water intake (?) * follow-up on cosyntropin stim test (although baseline cortisol seemed okay) and serum/urine osmolality * check TSH, SPEP, UPEP * will add fluid restriction * follow trend of repeat sodium (2) Hyperkalemia: Code(s): E87.5 - Hyperkalemia Status: Acute Assessment and Plan: * elevated at 6.5 by outpatient labs * possibly due to fluctuating renal function in conjunction with spironolactone and potassium supplements * better at this time (3) Stage 3b chronic kidney disease: Code(s): N18.32 - Chronic kidney disease, stage 3b Status: Chronic Assessment and Plan: * baseline creatinine runs ~ 1.6 - 2.0mg/dl since December 2022 * suspect secondary to need for diuretic therapy, CAD/CHF, HTN, vascular disease and age * creatinine better than baseline since off diuretics at this time (and s/p IVFs) (4) Syncope: Code(s): R55 - Syncope and collapse Status: Acute Assessment and Plan: * as noted by history prior to admission * related to hyponatremia versus overdiuresis or both (?) * recent Echo results noted * checking carotid dopplers * PT/OT as tolerated (5) CHF (congestive heart failure): Code(s): I50.9 - Heart failure, unspecified Status: Chronic Assessment and Plan: * no evidence of exacerbation * appears euvolemic at this time * diuretics on hold for now (but will eventually need to restart) * follows with [facility] (6) Chronic obstructive pulmonary disease: Code(s): J44.9 - Chronic obstructive pulmonary disease, unspecified Status: Chronic Assessment and Plan: * on chronic oxygen * no exacerbation at this time * continue home medications/inhalers * follows with Eloisa Haney and extensive discussion (greater than 20 minutes) with the patient and his with regard to the electrolyte abnormalities related to his low sodium level, elevated potassium level, in the context of renal dysfunction and the necessity of diuretic therapy. Testing regarding these issues is in progress but suspicion falls on his diuretics as the potential etiology for these problems although he needs his diuretics to control his edema/swelling and undoubtedly will need them on discharge as well. I will continue to follow the patient with you while he remains hospitalized and make further recommendations as needed. Thank you for allowing me to participate in care this patient. History of Present Illness Reason for Consult Consult date: 05/07/23 Reason for consult: chronic renal failure, hyponatremia and hyperkalemia Chief Complaint Chief complaint: Hyponatremia, Hypokalemia History of Present Illness Narrative: The patient is a very pleasant 72-year-old male with an extensive past medical history as outlined below who presented to [facility]
--- NOTE | 2023-05-07 13:04 | PM.CNNEP ---
Assessment and Plan Assessment and plan (1) Hyponatremia: Code(s): E87.1 - Hypo-osmolality and hyponatremia Status: Chronic Assessment and Plan: acute on chronic has had issues with low sodium as far back as 2014 (from review of [facility] records) however, seems more significant/pronounced in the last few months: since March, sodium running ~ 124 - 133mmol/L however, has been as high as 135 - 140mmol/L earlier this year suspect related to high dose diuretic therapy needed to maintain volume status other likely contributing factors: chronic lung disease (COPD + ILD) diuretics (including metolazone which is a thiazide diuretic) increased free water intake (?) follow-up on cosyntropin stim test (although baseline cortisol seemed okay) and serum/urine osmolality check TSH, SPEP, UPEP will add fluid restriction follow trend of repeat sodium (2) Hyperkalemia: Code(s): E87.5 - Hyperkalemia Status: Acute Assessment and Plan: elevated at 6.5 by outpatient labs possibly due to fluctuating renal function in conjunction with spironolactone and potassium supplements better at this time (3) Stage 3b chronic kidney disease: Code(s): N18.32 - Chronic kidney disease, stage 3b Status: Chronic Assessment and Plan: baseline creatinine runs ~ 1.6 - 2.0mg/dl since December 2022 suspect secondary to need for diuretic therapy, CAD/CHF, HTN, vascular disease and age creatinine better than baseline since off diuretics at this time (and s/p IVFs) (4) Syncope: Code(s): R55 - Syncope and collapse Status: Acute Assessment and Plan: as noted by history prior to admission related to hyponatremia versus overdiuresis or both (?) recent Echo results noted checking carotid dopplers PT/OT as tolerated (5) CHF (congestive heart failure): Code(s): I50.9 - Heart failure, unspecified Status: Chronic Assessment and Plan: no evidence of exacerbation appears euvolemic at this time diuretics on hold for now (but will eventually need to restart) follows with [facility] (6) Chronic obstructive pulmonary disease: Code(s): J44.9 - Chronic obstructive pulmonary disease, unspecified Status: Chronic Assessment and Plan: on chronic oxygen no exacerbation at this time continue home medications/inhalers follows with [facility] and extensive discussion (greater than 20 minutes) with the patient and his with regard to the electrolyte abnormalities related to his low sodium level, elevated potassium level, in the context of renal dysfunction and the necessity of diuretic therapy. Testing regarding these issues is in progress but suspicion falls on his diuretics as the potential etiology for these problems although he needs his diuretics to control his edema/swelling and undoubtedly will need them on discharge as well. I will continue to follow the patient with you while he remains hospitalized and make further recommendations as needed. Thank you for allowing me to participate in care this patient. History of Present Illness Reason for Consult Consult date: 05/07/23 Reason for consult: chronic renal failure, hyponatremia and hyperkalemia Chief Complaint Chief complaint: Hyponatremia, Hypokalemia History of Present Illness Narrative: The patient is a very pleasant 72-year-old male with an extensive past medical history as outlined below who presented to [facility] Emergency room for further evaluation of abnormal outpatient labs, specifically hyponatremia and hyperkalemia. The patient was just recently hospitalized here at [facility] in March 2023 with a CHF exacerbation. He responded to conservative medical management with IV diuretics although his BUN and creatinine did rise a bit in response to this intervention. He has been having routine bloods test done in the last f
[2023-05-07 16:29] LABS: Sodium 126 mmol/L (137-145)
[2023-05-07] MEDS: ATORVASTATIN 20 MG TABLET PO (20:07)
[2023-05-07 20:39] LABS: Glucose Point of Care 158 mg/dl (65-105)
[2023-05-08] VITALS (18 sets, daily range): BP systolic 91–122; BP diastolic 49–66; PULSE 65–146; RESP 16–18; TEMP 36.4–37.2; O2SAT 90–100
[2023-05-08 00:36] LABS: Sodium 125 mmol/L (137-145)
[2023-05-08] MEDS: SODIUM CHLORIDE 0.9% IV 1,000 ML 75 ML IV CONT ×2 (03:57→16:44)
[2023-05-08] MEDS: COSYNTROPIN 0.25 MG/ML VIAL IV PUSH (05:55)
[2023-05-08 06:04] LABS: Basophils Percent Auto 0.9 % (0.2-1.2); Eosinophils Percent Auto 0.9 % (0-4.4); Hematocrit 37.4 % (42.0-52.0); Hemoglobin 12.2 g/dL (14.0-18.0); Immature Granulocyte Absolute 0.04 K/mm3 (0.00-0.031); Immature Granulocyte Percent A 0.9 % (0-0.5); Immature Platelet Fraction Pct 6.8 % (0.9-11.2); Lymphocytes Absolute Auto 0.63 K/mm3 (0.9-3.2); Lymphocytes Percent Auto 14.8 % (18.3-44.2); Mean Corpuscular HGB Conc 32.6 g/dl (32-36); Mean Corpuscular Hemoglobin 33.8 pg (26-34); Mean Corpuscular Volume 103.6 fl (80-100); Mean Platelet Volume 9.9 fl (7.4-10.4); Monocytes Absolute Auto 0.6 K/mm3 (0.1-0.6); Monocytes Percent Auto 14.3 % (2.6-8.5); Neutrophils Absolute Auto 2.9 K/mm3 (1.3-6.7); Neutrophils Percent Auto 68.2 % (45.5-73.1); Platelet Count Result 106 k/mm3 (150-375); Red Blood Count 3.61 M/mm3 (4.6-6.20); Red Cell Distribution Width 15.4 % (11.5-14.5); White Blood Count 4.3 K/mm3 (4.5-10.0)
[2023-05-08 06:11] LABS: Alanine Aminotransferase 27 U/L (6-50); Albumin Level 3.4 g/dL (3.5-5.1); Alkaline Phosphatase 103 U/L (38-126); Anion Gap 8 mmol/L (8-16); Aspartate Amino Transferase 34 U/L (17-59); Bilirubin,Total 1.7 mg/dL (0.2-1.3); Blood Urea Nitrogen 32 mg/dL (9-20); Calcium 8.5 mg/dL (8.4-10.2); Carbon Dioxide 25 mmol/L (22-30); Chloride 92 mmol/L (98-107); Cholesterol 88 mg/dL (0-200); Estimated CRCL calculation 45 ml/min; Estimated Glomerular Filt Rate 59; Glucose 89 mg/dL (65-110); HDL Direct 30 mg/dL; Potassium 4.7 mmol/L (3.4-5.0); Sodium 125 mmol/L (137-145); Triglycerides 60 mg/dL (<150)
[2023-05-08 06:22] LABS: LDL Cholesterol Direct 43 mg/dL
[2023-05-08 06:46] LABS: Hemoglobin A1C 6.8 % (<5.7)
[2023-05-08 08:11] LABS: Glucose Point of Care 94 mg/dl (65-105)
[2023-05-08] MEDS: ASPIRIN 81 MG CHEWABLE TABLET PO (08:12)
[2023-05-08] MEDS: mycophenolate mofetiL 250 MG CAPSULE 500 MG PO ×2 (08:12→20:22)
[2023-05-08] MEDS: METOPROLOL TARTRATE 12.5 MG TABLET PO ×2 (08:12→20:23)
[2023-05-08] MEDS: UMECLIDINIUM/VILANTEROL 62.5-25 MCG ELLIPTA 1 PUFF INHALATION (09:34)
--- NOTE | 2023-05-08 09:51 | PM.IMPN ---
Progress Note: A&P Assessment and Plan (1) Hyponatremia: Code(s): E87.1 - Hypo-osmolality and hyponatremia Status: Chronic Assessment and Plan: -Na on admission was 127-->125-->123-->127-->125 this morning. Assuming this is a chronic hyponatremia. -since March Na has been running 124-133mmol/L -Previously as high as 135-140 mmol/L -Q 12 hour Na -nephrology consulted, appreciate recs -can start salt tabs and restart torsemide to see if this helps with his Na. -NS at 75 ml per hour -lipid panel ordered for tomorrow am, WNL. -serum osmo pending -urine sodium <5 -was on metolazone but was stopped on April 23. Holding all diuretics at this time. patient appears euvolemic -Recently finished a prednisone taper. Cortisol stim test was negative. -Fluid restriction of 1600 ml daily -Still awaiting serum osmo, SPEP, and UPEP as ordered by nephro -TSH normal (2) Hyperkalemia: Code(s): E87.5 - Hyperkalemia Status: Acute Assessment and Plan: K initially elevated at 5.2. Now normalized. -holding klor-karin (3) Renal failure: Code(s): N19 - Unspecified kidney failure Status: Acute Assessment and Plan: Cr on admission 1.5-->1.3-->1.2 today Baseline per nephro note is approximately 1.6-2.0 (4) Syncope: Code(s): R55 - Syncope and collapse Status: Acute Assessment and Plan: -2 episodes without prodromal symptoms. 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 He had to be seen in the ED for laceration requiring jaqueline. -Heart rhythm jumping in and out of a-fib vs ST. No history of a-fib. Received IV metoprolol 5 mg. Cards consult placed and they will see him in the morning. -telemetry ordered -Carotid duplex 05/07 -less than 50% stenosis to both right and left ICA -ECHO from 03/28/2023 Summary ? 1. Complete two-dimensional, color flow and Doppler transthoracic echocardiogram is performed. ? 2. Left ventricular chamber dimension is normal. ? 3. Left ventricular systolic function is normal, estimated at 55-60%. ? 4. There is moderately increased left ventricular wall thickness. ? 5. The left ventricular diastolic function is grade I diastolic dysfunction. ? 6. D shaped septum in systole and diastole consistent with right ventricular pressure and volume overload. ? 7. Right ventricular chamber dimension is severely enlarged. ? 8. Right ventricular systolic function is reduced. ? 9. Left atrial chamber dimension is mildly enlarged. ? 10. Right atrial chamber dimension is severely enlarged. ? 11. There is mild aortic valve stenosis with a peak velocity of 110 cm/s, mean gradient of 2 mmHg, and aortic valve area of 2.0 cm2. ? 12. There is mild aortic valve regurgitation. ? 13. There is mild mitral valve regurgitation. ? 14. The mitral valve annulus is severely calcified. ? 15. There is moderate to severe tricuspid valve regurgitation. ? 16. Moderate pulmonary hypertension, estimated pulmonary arterial systolic pressure is 52 mmHg. -PT/OT ordered (5) Chronic obstructive pulmonary disease: Code(s): J44.9 - Chronic obstructive pulmonary disease, unspecified Status: Chronic Assessment and Plan: On oxygen at home. 2-3 L NC baseline at bedtime and as needed during the day. No acute exacerbation. Chronic non-productive cough. -Anoro Ellipta restarted this admission (6) Coronary artery disease: Code(s): I25.10 - Atherosclerotic heart disease of [place] coronary artery without angina pectoris Status: Acute Assessment and Plan: -ordered am lipid panel -on atorvastatin 20 mg po daily. continue this admission (7) Chronic respiratory failure with hypoxia, on home oxygen therapy: Code(s): J96.11 - Chronic respiratory failure with hypoxia; Z99.81 - Dependence on supplemental oxygen Status: Acute Assessment and Plan: -normally on 2-3 L NC at night and sometimes during
[2023-05-08 12:12] LABS: Sodium 125 mmol/L (137-145)
[2023-05-08 12:23] LABS: Glucose Point of Care 125 mg/dl (65-105)
--- NOTE | 2023-05-08 12:45 | P.PNNP_ITS ---
Progress Note: A&P Assessment and Plan (1) Hyponatremia: Code(s): E87.1 - Hypo-osmolality and hyponatremia Status: Chronic Assessment and Plan: * running ~ 125 from last few blood draws * acute on chronic * has had issues with low sodium as far back as 2014 (from review of [facility] records) * however, seems more significant/pronounced in the last few months: * since March, sodium running ~ 124 - 133mmol/L * however, has been as high as 135 - 140mmol/L earlier this year * suspect related to high dose diuretic therapy needed to maintain volume status * other likely contributing factors: * chronic lung disease (COPD + ILD) * diuretics (including metolazone which is a thiazide diuretic) * increased free water intake (?) * evaluation to date: * urine electrolytes prerenal (despite of diuretic therapy) * cosyntropin stim test results noted * TSH okay * SPEP/UPEP and serum/urine osmolality pending * s/p IVFs * added fluid restriction * consider salt tabs in conjunction with loop diuretics... * follow trend of repeat sodium (2) Hyperkalemia: Code(s): E87.5 - Hyperkalemia Status: Acute Assessment and Plan: * resolved * elevated at 6.5 by outpatient labs * possibly due to fluctuating renal function in conjunction with spironolactone and potassium supplements * better at this time (3) Stage 3b chronic kidney disease: Code(s): N18.32 - Chronic kidney disease, stage 3b Status: Chronic Assessment and Plan: * baseline creatinine runs ~ 1.6 - 2.0mg/dl since December 2022 * suspect secondary to need for diuretic therapy, CAD/CHF, HTN, vascular disease and age * creatinine better than baseline at this time since off diuretics (and s/p IVFs) (4) Syncope: Code(s): R55 - Syncope and collapse Status: Acute Assessment and Plan: * as noted by history prior to admission * related to hyponatremia versus overdiuresis or both (?) * recent Echo results noted * arotid dopplers noted * PT/OT as tolerated (5) CHF (congestive heart failure): Code(s): I50.9 - Heart failure, unspecified Status: Chronic Assessment and Plan: * no evidence of exacerbation * appears euvolemic at this time * diuretics on hold for now (but will eventually need to restart) * follows with [facility] (6) Chronic obstructive pulmonary disease: Code(s): J44.9 - Chronic obstructive pulmonary disease, unspecified Status: Chronic Assessment and Plan: * on chronic oxygen * no exacerbation at this time * continue home medications/inhalers * follows with [facility] Will continue to follow. Subjective Date/time seen: 05/08/23 12:45 Interval history: Follow-up for hyponatremia, hyperkalemia, and chronic kidney disease. Sodium relatively stable in the last 24 hours with improvement in renal function and stability of potassium; no apparent distress noted; anxious for discharge; otherwise, appears in good spirits. Exam Narrative: General: elderly but WD/WN male in NAD Heart: normal S1 and S2; no rub Lungs: coarse breath sounds Abdomen: soft, nontender, nondistended, positive bowel sounds Extremities: no cyanosis or clubbing; no edema Skin: warm and dry Objective Data Vital Signs Vital Signs: Vital Signs Temp Pulse Resp BP Pulse Ox O2 Del Method O2 F
--- NOTE | 2023-05-08 12:45 | PM.PNNEP ---
Progress Note: A&P Assessment and Plan (1) Hyponatremia: Code(s): E87.1 - Hypo-osmolality and hyponatremia Status: Chronic Assessment and Plan: running ~ 125 from last few blood draws acute on chronic has had issues with low sodium as far back as 2014 (from review of [facility] records) however, seems more significant/pronounced in the last few months: since March, sodium running ~ 124 - 133mmol/L however, has been as high as 135 - 140mmol/L earlier this year suspect related to high dose diuretic therapy needed to maintain volume status other likely contributing factors: chronic lung disease (COPD + ILD) diuretics (including metolazone which is a thiazide diuretic) increased free water intake (?) evaluation to date: urine electrolytes prerenal (despite of diuretic therapy) cosyntropin stim test results noted TSH okay SPEP/UPEP and serum/urine osmolality pending s/p IVFs added fluid restriction consider salt tabs in conjunction with loop diuretics... follow trend of repeat sodium (2) Hyperkalemia: Code(s): E87.5 - Hyperkalemia Status: Acute Assessment and Plan: resolved elevated at 6.5 by outpatient labs possibly due to fluctuating renal function in conjunction with spironolactone and potassium supplements better at this time (3) Stage 3b chronic kidney disease: Code(s): N18.32 - Chronic kidney disease, stage 3b Status: Chronic Assessment and Plan: baseline creatinine runs ~ 1.6 - 2.0mg/dl since December 2022 suspect secondary to need for diuretic therapy, CAD/CHF, HTN, vascular disease and age creatinine better than baseline at this time since off diuretics (and s/p IVFs) (4) Syncope: Code(s): R55 - Syncope and collapse Status: Acute Assessment and Plan: as noted by history prior to admission related to hyponatremia versus overdiuresis or both (?) recent Echo results noted arotid dopplers noted PT/OT as tolerated (5) CHF (congestive heart failure): Code(s): I50.9 - Heart failure, unspecified Status: Chronic Assessment and Plan: no evidence of exacerbation appears euvolemic at this time diuretics on hold for now (but will eventually need to restart) follows with [facility] (6) Chronic obstructive pulmonary disease: Code(s): J44.9 - Chronic obstructive pulmonary disease, unspecified Status: Chronic Assessment and Plan: on chronic oxygen no exacerbation at this time continue home medications/inhalers follows with [facility] Will continue to follow. Subjective Date/time seen: 05/08/23 12:45 Interval history: Follow-up for hyponatremia, hyperkalemia, and chronic kidney disease. Sodium relatively stable in the last 24 hours with improvement in renal function and stability of potassium; no apparent distress noted; anxious for discharge; otherwise, appears in good spirits. Exam Narrative: General: elderly but WD/WN male in NAD Heart: normal S1 and S2; no rub Lungs: coarse breath sounds Abdomen: soft, nontender, nondistended, positive bowel sounds Extremities: no cyanosis or clubbing; no edema Skin: warm and dry Objective Data Vital Signs Vital Signs: Vital Signs Temp Pulse Resp BP Pulse Ox O2 Del Method O2 Flow Rate 05/08/23 12:00 73 05/08/23 08:00 74 05/08/23 09:58 Nasal Cannula 2 05/08/23 09:34 99 Nasal Cannula 3 05/08/23 08:19 Room Air 05/08/23 08:12 72 05/08/23 04:00 67 05/08/23 04:02 99 F 73 18 99/49 L 100 05/08/23 00:00 70 05/07/23 20:00 75 18 100 Room Air 05/07/23 20:00 78 05/07/23 20:06 75 05/07/23 19:25 79 115/51 L 05/07/23 19:22 97.3 F L 79 18 102/52 L 100 05/07/23 16:00 71 Intake/Output Intake/Output: Intake & Output 05/05/23 05/06/23 05/07/23 05/08/23 23:59 23:59 2
--- NOTE | 2023-05-08 15:07 | ECG_ITS ---
Measurements Intervals [place] Rate: 134 P: 101 NM: 177 QRS: 15 QRSD: 138 T: -1 QT: 305 QTc: 456 Interpretive Statements ATRIAL FLUTTER/TACHYCARDIA WITH RAPID VENTRICULAR RESPONSE RIGHT BUNDLE BRANCH BLOCK ABNORMAL ECG COMPARED TO ECG 05/06/2023 13:44:00 ATRIAL FLUTTER/TACHYCARDIA NOW PRESENT Electronically Signed On 05-08-2023 16:09:36 CDT by Zac Alemna D.O.
[2023-05-08] MEDS: METOPROLOL TARTRATE INJ 5 MG/5 ML VIAL IV PUSH (15:48)
[2023-05-08 16:43] LABS: Magnesium 2.4 mg/dL (1.6-2.3)
[2023-05-08] MEDS: SODIUM CHLORIDE 1 GM TABLET PO (16:44)
[2023-05-08] MEDS: TORSEMIDE 20 MG TABLET PO (16:44)
[2023-05-08 17:15] LABS: Glucose Point of Care 130 mg/dl (65-105)
--- NOTE | 2023-05-08 17:57 | PM.EVENT ---
Event Note Event Note Event Note: Called to bedside for a-fib with RVR in 140's. Initial dose of IVP Lopressor 5mg provided brief rate control in the 100's, now back in the 140's. Will repeat Lopressor 7.5 mg IVP now.
[2023-05-08] MEDS: METOPROLOL TARTRATE INJ 5 MG/5 ML VIAL 7.5 MG IV PUSH (18:07)
--- NOTE | 2023-05-08 18:23 | PC.NURSE ---
Hospitalist, Daphney Mancini was notified by phone that patients HR continues to be 120 -140's after dose of Metoprolol 5mg. Daphney came to floor to assess patient and telemetry. A one time dose of Metoprolol 7.5 mg was ordered.
[2023-05-08 18:28] LABS: Anion Gap 10 mmol/L (8-16); Blood Urea Nitrogen 31 mg/dL (9-20); Calcium 8.7 mg/dL (8.4-10.2); Carbon Dioxide 22 mmol/L (22-30); Chloride 94 mmol/L (98-107); Estimated CRCL calculation 49 ml/min; Estimated Glomerular Filt Rate > 60; Glucose 110 mg/dL (65-110); Potassium 4.9 mmol/L (3.4-5.0); Sodium 126 mmol/L (137-145)
[2023-05-08] MEDS: ATORVASTATIN 20 MG TABLET PO (20:23)
[2023-05-08 20:35] LABS: Glucose Point of Care 100 mg/dl (65-105)
[2023-05-09] VITALS: PULSE 69
[2023-05-09 04:00] VITALS: PULSE 65
[2023-05-09 05:46] LABS: Basophils Percent Auto 0.9 % (0.2-1.2); Eosinophils Absolute Auto 0.1 K/mm3 (0-0.3); Eosinophils Percent Auto 1.3 % (0-4.4); Hematocrit 38.5 % (42.0-52.0); Hemoglobin 12.4 g/dL (14.0-18.0); Immature Granulocyte Absolute 0.06 K/mm3 (0.00-0.031); Immature Granulocyte Percent A 1.3 % (0-0.5); Immature Platelet Fraction Pct 7.6 % (0.9-11.2); Lymphocytes Percent Auto 17.1 % (18.3-44.2); Mean Corpuscular HGB Conc 32.2 g/dl (32-36); Mean Corpuscular Hemoglobin 33.7 pg (26-34); Mean Corpuscular Volume 104.6 fl (80-100); Mean Platelet Volume 10.6 fl (7.4-10.4); Monocytes Absolute Auto 0.7 K/mm3 (0.1-0.6); Monocytes Percent Auto 15.6 % (2.6-8.5); Neutrophils Percent Auto 63.8 % (45.5-73.1); Platelet Count Result 112 k/mm3 (150-375); Red Blood Count 3.68 M/mm3 (4.6-6.20); Red Cell Distribution Width 15.5 % (11.5-14.5); White Blood Count 4.7 K/mm3 (4.5-10.0)
[2023-05-09 06:00] VITALS: BP 106/61; PULSE 71; RESP 18; TEMP 36.6; O2SAT 100
[2023-05-09 06:01] LABS: Anion Gap 10 mmol/L (8-16); Blood Urea Nitrogen 35 mg/dL (9-20); Carbon Dioxide 24 mmol/L (22-30); Chloride 93 mmol/L (98-107); Estimated CRCL calculation 39 ml/min; Estimated Glomerular Filt Rate 50; Glucose 83 mg/dL (65-110); Potassium 4.6 mmol/L (3.4-5.0); Sodium 127 mmol/L (137-145)
[2023-05-09 08:00] VITALS: PULSE 70
[2023-05-09 08:22] LABS: Glucose Point of Care 93 mg/dl (65-105)
[2023-05-09 08:25] VITALS: PULSE 71
[2023-05-09] MEDS: SODIUM CHLORIDE 1 GM TABLET PO (08:25)
[2023-05-09] MEDS: METOPROLOL TARTRATE 12.5 MG TABLET PO (08:25)
[2023-05-09] MEDS: mycophenolate mofetiL 250 MG CAPSULE 500 MG PO (08:25)
[2023-05-09] MEDS: ASPIRIN 81 MG CHEWABLE TABLET PO (08:25)
[2023-05-09] MEDS: TORSEMIDE 20 MG TABLET PO (08:27)
[2023-05-09] MEDS: UMECLIDINIUM/VILANTEROL 62.5-25 MCG ELLIPTA 1 PUFF INHALATION (08:55)
--- NOTE | 2023-05-09 10:18 | PM.CNCAR ---
Assessment and Plan Assessment and plan (1) Atrial flutter: Code(s): I48.92 - Unspecified atrial flutter Status: Acute Plan this is a 72-year-old man with underlying coronary disease with surgical revascularization in 2014 he has good LV systolic function and no significant left-sided valve disease. He seems to be stable with respect to his ischemic disease. He does have significant right ventricular dysfunction probably related to underlying lung disease he was a heavy smoker in the past he also according to the chart has some degree of interstitial lung disease. He has cardiology and Pulmonary follow-up at [facility]. While he is in the hospital here at [facility] for hyponatremia he was noted to have an episode of atrial flutter last night. He is back in sinus rhythm. At this point the only recommendation I would make is to initiate systemic anticoagulation. This was discussed in detail with the patient and his . I will start Xarelto at this time. Following discharge he will follow-up with his established investigator welfare at [facility]. He believes they have an appointment about 2 weeks from now. Broderick Mejía MD [facility] History of Present Illness History of Present Illness Consult date/time: 05/09/23 10:18 Reason For Visit: Hyponatremia, Hypokalemia Narrative: This is a 72-year-old man apparently known to have coronary disease, significant lung disease and right-sided heart failure. He was hospitalized here several days ago earlier this week at the request of his physicians at [facility] because some lab work demonstrated hyponatremia. He is on several diuretics for treatment of edema presumably as a result of his underlying lung disease and right ventricular dysfunction. During this hospitalization he was placed on telemetry although I do not believe he was having any arrhythmias. Yesterday he had an episode of narrow QRS tachycardia that was irregular and on review of the ECG demonstrates atrial flutter with rapid ventricular response. Patient states when this happened yesterday evening he was having a difficult time getting an on the bathroom and have trouble knocking over his IV pole and he became upset. He thought this was the reason for these arrhythmias. In any event since that event he is feeling fine he has been back in sinus rhythm I do not believe anything had to be done in the way of medication or treatment to restore sinus rhythm. He does not recall having any arrhythmias in the past and he seems to be a good historian. Patient states that he has a history of coronary artery disease and follows with a investigator welfare at [facility]. He underwent coronary bypass surgery in 2015 he had a good result from the surgery and he does not believe he has had any significant cardiac problems since then. He was in the hospital here recently with some lower extremity edema for diuresis. An echocardiogram that was done here at this hospital demonstrated significant right ventricular enlargement with systolic dysfunction and stigmata of elevated pulmonary artery pressures. He is asymptomatic this morning feels well and his is in the room they he offers no other complaints or concerns. His diuretic regimen prior to coming in the hospital included spironolactone 25 mg daily, torsemide and I believe I saw p.rmehdi Zaroxolyn on his regimen as well. Regarding his coronary disease he takes low-dose aspirin as well as atorvastatin and a modest dose of metoprolol tartrate. His 12 lead ECG shows sinus rhythm with right bundle branch block. Review of Systems Constitutional: Constitutional: Reports no additional constitutional complaints Eyes: Eyes: Reports no additional eye complaints ENT: Reports system reviewed and no additional complaints, except as documented Cardiovascular: Cardiovascular: Reports as per HPI and Reports leg edema Respiratory: Respiratory: Reports no additional respiratory complaints Gastroin
--- NOTE | 2023-05-09 10:28 | P.PNNP_ITS ---
Progress Note: A&P Assessment and Plan (1) Hyponatremia: Code(s): E87.1 - Hypo-osmolality and hyponatremia Status: Chronic Assessment and Plan: * improving * acute on chronic * has had issues with low sodium as far back as 2014 (from review of [facility] records) * however, seems more significant/pronounced in the last few months: * since March, sodium running ~ 124 - 133mmol/L * however, has been as high as 135 - 140mmol/L earlier this year * suspect related to high dose diuretic therapy needed to maintain volume status * other likely contributing factors: * chronic lung disease (COPD + ILD) * diuretics (including metolazone which is a thiazide diuretic) * increased free water intake (?) * evaluation to date: * urine electrolytes prerenal (despite of diuretic therapy) * cosyntropin stim test results noted * TSH okay * SPEP/UPEP and serum/urine osmolality pending * s/p IVFs * on fluid restriction, salt tabs, and diuretics * follow trend of repeat sodium (2) Hyperkalemia: Code(s): E87.5 - Hyperkalemia Status: Acute Assessment and Plan: * resolved * elevated at 6.5 by outpatient labs * possibly due to fluctuating renal function in conjunction with spironolactone and potassium supplements * better at this time (3) Stage 3b chronic kidney disease: Code(s): N18.32 - Chronic kidney disease, stage 3b Status: Chronic Assessment and Plan: * baseline creatinine runs ~ 1.6 - 2.0mg/dl since December 2022 * suspect secondary to need for diuretic therapy, CAD/CHF, HTN, vascular disease and age * creatinine better than baseline at this time since off diuretics (and s/p IVFs) (4) Syncope: Code(s): R55 - Syncope and collapse Status: Acute Assessment and Plan: * as noted by history prior to admission * related to hyponatremia versus overdiuresis or both (?) * recent Echo results noted * arotid dopplers noted * PT/OT as tolerated (5) CHF (congestive heart failure): Code(s): I50.9 - Heart failure, unspecified Status: Chronic Assessment and Plan: * no evidence of exacerbation * appears euvolemic at this time * diuretics being resumed (but would continue to hold metolazone) * follows with [facility] (6) Chronic obstructive pulmonary disease: Code(s): J44.9 - Chronic obstructive pulmonary disease, unspecified Status: Chronic Assessment and Plan: * on chronic oxygen * no exacerbation at this time * continue home medications/inhalers * follows with [facility] Will continue to follow. Subjective Date/time seen: 05/09/23 10:28 Interval history: Follow-up for hyponatremia, hyperkalemia, and chronic kidney disease. Sodium continues to improve with current interventions/therapy (fluid restriction, salt tabs, diuretics...etc); as always, remains in good spirits; quite anxious for discharge at this time; restarted on torsemide yesterday; no apparent distress. Exam 2 Narrative: General: elderly but WD/WN male in NAD Heart: normal S1 and S2; no rub Lungs: coarse breath sounds Abdomen: soft, nontender, nondistended, positive bowel sounds Extremities: no cyanosis or clubbing; no edema Skin: warm and intact Objective Data Vital Signs Vital Signs: Vital Signs Temp Pulse Resp BP Pulse Ox O2 Del Method O2 Flow Rate
--- NOTE | 2023-05-09 10:28 | PM.PNNEP ---
Progress Note: A&P Assessment and Plan (1) Hyponatremia: Code(s): E87.1 - Hypo-osmolality and hyponatremia Status: Chronic Assessment and Plan: improving acute on chronic has had issues with low sodium as far back as 2014 (from review of [facility] records) however, seems more significant/pronounced in the last few months: since March, sodium running ~ 124 - 133mmol/L however, has been as high as 135 - 140mmol/L earlier this year suspect related to high dose diuretic therapy needed to maintain volume status other likely contributing factors: chronic lung disease (COPD + ILD) diuretics (including metolazone which is a thiazide diuretic) increased free water intake (?) evaluation to date: urine electrolytes prerenal (despite of diuretic therapy) cosyntropin stim test results noted TSH okay SPEP/UPEP and serum/urine osmolality pending s/p IVFs on fluid restriction, salt tabs, and diuretics follow trend of repeat sodium (2) Hyperkalemia: Code(s): E87.5 - Hyperkalemia Status: Acute Assessment and Plan: resolved elevated at 6.5 by outpatient labs possibly due to fluctuating renal function in conjunction with spironolactone and potassium supplements better at this time (3) Stage 3b chronic kidney disease: Code(s): N18.32 - Chronic kidney disease, stage 3b Status: Chronic Assessment and Plan: baseline creatinine runs ~ 1.6 - 2.0mg/dl since December 2022 suspect secondary to need for diuretic therapy, CAD/CHF, HTN, vascular disease and age creatinine better than baseline at this time since off diuretics (and s/p IVFs) (4) Syncope: Code(s): R55 - Syncope and collapse Status: Acute Assessment and Plan: as noted by history prior to admission related to hyponatremia versus overdiuresis or both (?) recent Echo results noted arotid dopplers noted PT/OT as tolerated (5) CHF (congestive heart failure): Code(s): I50.9 - Heart failure, unspecified Status: Chronic Assessment and Plan: no evidence of exacerbation appears euvolemic at this time diuretics being resumed (but would continue to hold metolazone) follows with [facility] (6) Chronic obstructive pulmonary disease: Code(s): J44.9 - Chronic obstructive pulmonary disease, unspecified Status: Chronic Assessment and Plan: on chronic oxygen no exacerbation at this time continue home medications/inhalers follows with [facility] Will continue to follow. Subjective Date/time seen: 05/09/23 10:28 Interval history: Follow-up for hyponatremia, hyperkalemia, and chronic kidney disease. Sodium continues to improve with current interventions/therapy (fluid restriction, salt tabs, diuretics...etc); as always, remains in good spirits; quite anxious for discharge at this time; restarted on torsemide yesterday; no apparent distress. Exam Narrative: General: elderly but WD/WN male in NAD Heart: normal S1 and S2; no rub Lungs: coarse breath sounds Abdomen: soft, nontender, nondistended, positive bowel sounds Extremities: no cyanosis or clubbing; no edema Skin: warm and intact Objective Data Vital Signs Vital Signs: Vital Signs Temp Pulse Resp BP Pulse Ox O2 Del Method O2 Flow Rate 05/09/23 08:00 70 05/09/23 08:25 71 05/09/23 06:00 98 F 71 18 106/61 100 05/08/23 22:20 99 Nasal Cannula 3 05/09/23 04:00 65 05/09/23 00:00 69 05/08/23 21:37 98.2 F 139 H 18 98/64 L 99 05/08/23 20:00 92/66 L 05/08/23 19:45 131 H 05/08/23 20:23 139 H 05/08/23 18:07 142 H 05/08/23 16:00 106 H 05/08/23 15:48 146 H 05/08/23 15:18 65 122/64 100 05/08/23 14:00 97.5 F L 73 16 112/61 90 05/08/23 13:48 97/51 L 05/08/23 13:48 91/58 L 05/08/23 12:00 73 Intake/Output Int
--- NOTE | 2023-05-09 10:47 | PM.DS ---
DS: Admitting Diagnosis Discharge Date FridayMay 09 Admitting Diagnosis Acute hyponatremia DS: Discharge Diagnosis Discharge Diagnosis (1) Hyponatremia: Code(s): E87.1 - Hypo-osmolality and hyponatremia Status: Chronic Assessment and Plan: -Na on admission was 127-->125-->123-->127-->125 this morning. Assuming this is a chronic hyponatremia. -since March Na has been running 124-133mmol/L -Previously as high as 135-140 mmol/L -Q 12 hour Na -nephrology consulted, appreciate recs -can start salt tabs and restart torsemide to see if this helps with his Na. -NS at 75 ml per hour -lipid panel ordered for tomorrow am, WNL. -serum osmo pending -urine sodium <5 -was on metolazone but was stopped on April 23. Holding all diuretics at this time. patient appears euvolemic -Recently finished a prednisone taper. Cortisol stim test was negative. -Fluid restriction of 1600 ml daily -Still awaiting serum osmo, SPEP, and UPEP as ordered by nephro -TSH normal (2) Hyperkalemia: Code(s): E87.5 - Hyperkalemia Status: Acute Assessment and Plan: K initially elevated at 5.2. Now normalized. -holding klor-karin (3) Renal failure: Code(s): N19 - Unspecified kidney failure Status: Acute Assessment and Plan: Cr on admission 1.5-->1.3-->1.2 today Baseline per nephro note is approximately 1.6-2.0 (4) Syncope: Code(s): R55 - Syncope and collapse Status: Acute Assessment and Plan: -2 episodes without prodromal symptoms. 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 He had to be seen in the ED for laceration requiring jaqueline. -Heart rhythm jumping in and out of a-fib vs ST. No history of a-fib. Received IV metoprolol 5 mg. Cards consult placed and they will see him in the morning. -telemetry ordered -Carotid duplex 05/07 -less than 50% stenosis to both right and left ICA -ECHO from 03/28/2023 Summary ? 1. Complete two-dimensional, color flow and Doppler transthoracic echocardiogram is performed. ? 2. Left ventricular chamber dimension is normal. ? 3. Left ventricular systolic function is normal, estimated at 55-60%. ? 4. There is moderately increased left ventricular wall thickness. ? 5. The left ventricular diastolic function is grade I diastolic dysfunction. ? 6. D shaped septum in systole and diastole consistent with right ventricular pressure and volume overload. ? 7. Right ventricular chamber dimension is severely enlarged. ? 8. Right ventricular systolic function is reduced. ? 9. Left atrial chamber dimension is mildly enlarged. ? 10. Right atrial chamber dimension is severely enlarged. ? 11. There is mild aortic valve stenosis with a peak velocity of 110 cm/s, mean gradient of 2 mmHg, and aortic valve area of 2.0 cm2. ? 12. There is mild aortic valve regurgitation. ? 13. There is mild mitral valve regurgitation. ? 14. The mitral valve annulus is severely calcified. ? 15. There is moderate to severe tricuspid valve regurgitation. ? 16. Moderate pulmonary hypertension, estimated pulmonary arterial systolic pressure is 52 mmHg. -PT/OT ordered (5) Chronic obstructive pulmonary disease: Code(s): J44.9 - Chronic obstructive pulmonary disease, unspecified Status: Chronic Assessment and Plan: On oxygen at home. 2-3 L NC baseline at bedtime and as needed during the day. No acute exacerbation. Chronic non-productive cough. -Anoro Ellipta restarted this admission (6) Coronary artery disease: Code(s): I25.10 - Atherosclerotic heart disease of [place] coronary artery without angina pectoris Status: Acute Assessment and Plan: -ordered am lipid panel -on atorvastatin 20 mg po daily. continue this admission (7) Chronic respiratory failure with hypoxia, on home oxygen therapy: Code(s): J96.11 - Chronic respiratory failure with hypoxia; Z99.81 - Dependence on supplemental ox
[2023-05-09 12:32] LABS: Glucose Point of Care 93 mg/dl (65-105)
[2023-05-09 21:16] LABS: Osmolality, Urine 362 mOsm/kg (50-1200)
[2023-05-12 15:08] LABS: Albumin 3.3 g/dL (3.8-4.8); Alpha 1 Globulin 0.3 g/dL (0.2-0.3); Alpha 2 Globulin 0.7 g/dL (0.5-0.9); Beta 1 Globulin 0.4 g/dL (0.4-0.6); Gamma Globulin 0.8 g/dL (0.8-1.7); Protein, Total 5.8 g/dL (6.1-8.1)
[2023-05-14 11:55] LABS: Renin 22.44 ng/mL/h (0.25-5.82)
[2023-05-19 01:40] LABS: Creatinine, Random Urine 64 mg/dL (20-320); Total Protein/Creatinine Ratio 797 mg/g creat (25-148)
== END 2023-05-09 13:05 | disposition home or self-care (01) | DRG 641 ==
LOC: ANHED 14:11 → ANH3MED 17:26
PROVIDERS: Emergency Medicine; Internal Medicine Nephrology; Physician Assistant; Admitting Provider Hospitalist; Emergency Provider General Practice; PCP Family Medicine Sports Medicine; Visit Provider Nurse Practitioner Acute Care
DX: E87.1 Hypo-osmolality and hyponatremia (principal); J96.11 Chronic respiratory failure with hypoxia; I13.0 Hypertensive heart and chronic kidney disease with heart failure and stage 1 through stage 4 chronic kidney disease, or unspecified chronic kidney disease; J84.9 Interstitial pulmonary disease, unspecified; I48.92 Unspecified atrial flutter; R00.0 Tachycardia, unspecified; E87.5 Hyperkalemia; N18.32 Chronic kidney disease, stage 3b; I50.9 Heart failure, unspecified; R55 Syncope and collapse; I25.10 Atherosclerotic heart disease of native coronary artery without angina pectoris; J44.9 Chronic obstructive pulmonary disease, unspecified; L40.9 Psoriasis, unspecified; M19.90 Unspecified osteoarthritis, unspecified site; G47.33 Obstructive sleep apnea (adult) (pediatric); E78.5 Hyperlipidemia, unspecified; Z99.81 Dependence on supplemental oxygen; Z95.5 Presence of coronary angioplasty implant and graft; Z95.1 Presence of aortocoronary bypass graft; Z87.891 Personal history of nicotine dependence
CPT/HCPCS: 36415; 71045; 80048; 80053; 80061; 81003; 81050; 82088; 82533; 82570; 82607; 82728; 82746; 82948; 83036; 83540; 83550; 83735; 83930; 83935; 84155; 84156; 84165; 84166; 84244; 84295; 84300; 84443; 84540; 85025; 85046; 85055; 93005; 93880; 94640; 97161; 97165; 99285; A9270; J0834; J7030; J7040; J7517

== ENCOUNTER 2023-07-23 13:56 | Inpatient (IN) | payer MEDICARE, SELFPAY ==
[2023-07-23] VITALS (28 sets, daily range): BP systolic 99–117; BP diastolic 48–79; PULSE 72–95; RESP 12–24; TEMP 36.4–36.6; O2SAT 93–100; BMI 27.6
--- NOTE | ~2023-07-23 | CT_ITS ---
EXAMINATION: CT cervical spine wo con DATE: 07/23/2023 14:45 INDICATION: Neck pain. Fall. TECHNIQUE: Computed tomography (CT) of the cervical spine was performed without intravenous contrast. Automated exposure control and iterative reconstruction technique were employed. The dose-length pro duct was 289.88 mGy-cm. COMPARISON: None FINDINGS: The visualized portions of the lung apices demonstrate chronic interstitial lung disease. T here is 13 degrees levoscoliosis of cervical spine. There is 2 mm anterolisthesis of C3 on C4, C4 on C5, and C5 on C6. Vertebral body heights are normal. There is mildly decreased disc height at C3-C4, C4-C5, and C5-C6, severely decreased disc height at C6-C7, and mildly decreased disc height at C7-T1. The following disc levels are specifically discussed: C2-C3: There is mild right uncovertebral joint osteoarthritis. There is severe right and mild left fa cet joint osteoarthritis. There is mild right neural foraminal stenosis. There is no central canal st enosis. C3-C4: There is mild bilateral uncovertebral joint osteoarthritis. There is severe bilateral facet soni int osteoarthritis. There is mild bilateral neural foraminal stenosis. There is mild central canal st enosis. C4-C5: There is mild bilateral uncovertebral joint osteoarthritis. There is severe bilateral facet soni int osteoarthritis. There is mild bilateral neural foraminal stenosis. There is mild central canal st enosis. C5-C6: There is severe right and moderate left uncovertebral joint osteoarthritis. There is severe bi lateral facet joint osteoarthritis. There is mild bilateral neural foraminal stenosis. There is mild central canal stenosis. C6-C7: There is severe bilateral uncovertebral joint osteoarthritis. There is severe bilateral facet joint osteoarthritis. There is mild left neural foraminal stenosis. There is mild central canal steno sis. C7-T1: There is no uncovertebral joint osteoarthritis. There is severe bilateral facet joint osteoart hritis. There is mild left neural foraminal stenosis. There is no central canal stenosis. IMPRESSION: 1. No fracture. 2. Severe cervical spondylosis. Reviewed, dictated and finalized at location A.
--- NOTE | ~2023-07-23 | CT_ITS ---
EXAMINATION: CT brain wo con DATE: 07/23/2023 14:45 INDICATION: Headache. Fall. TECHNIQUE: Computed tomography (CT) of the head was performed without intravenous contrast. The mA wa s adjusted according to patient size. Iterative reconstruction technique was employed. The dose-lengt h product was 605.33 mGy-cm. COMPARISON: None FINDINGS: There are scattered areas of low attenuation in the cerebral white matter. There is no intr acranial hemorrhage, acute infarction, or abnormal intracranial mass lesion. The ventricles are noel l in size. The paranasal sinuses are clear. There are likely changes of ocular lens replacement surge annabel. The mastoid air cells are normal. IMPRESSION: 1. Mild nonspecific cerebral white matter disease, which likely represents chronic small vessel ische octavio disease. Reviewed, dictated and finalized at location A. IMPRESSION: 1. Mild nonspecific cerebral white matter disease, which likely represents chromosomal disorders counselor katherine small vessel ischemic disease.
--- NOTE | ~2023-07-23 | XR_ITS ---
EXAMINATION: XR chest 1V DATE: 07/23/2023 14:48 INDICATION: Confusion. TECHNIQUE: A single frontal view of the chest was obtained. COMPARISON: Chest single view 05/06/2023 FINDINGS: There is a chronic diffuse interstitial pattern in the lungs. No pleural effusion or pneumo thorax. Cardiomegaly is noted. Median sternotomy wires and mediastinal surgical clips are seen, likel y from prior coronary artery bypass grafting. IMPRESSION: 1. Stable chronic interstitial lung disease. 2. Cardiomegaly. Reviewed, dictated and finalized at location A.
--- NOTE | 2023-07-23 14:25 | ECG_ITS ---
Measurements Intervals [place] Rate: 85 P: NE: 0 QRS: 56 QRSD: 144 T: -57 QT: 392 QTc: 468 Interpretive Statements ATRIAL FIBRILLATION RIGHT BUNDLE BRANCH BLOCK [120+ ms QRS DURATION, UPRIGHT V1, 40+ ms S IN I/aVL/V4/V5/V6] ABNORMAL ECG COMPARED TO ECG 05/08/2023 15:15:16 ATRIAL FIBRILLATION NOW PRESENT Electronically Signed On 07-23-2023 15:47:43 CDT by Bob Handy M.D.
--- NOTE | 2023-07-23 14:54 | ED.GENADULT ---
HPI - General Adult General Chief complaint: Shortness of Breath/Dyspnea Stated complaint: sob Time Seen by Provider: 07/23/23 14:16 Source: patient, family, RN notes reviewed and old records reviewed Limitations: altered mental status History of Present Illness HPI narrative: This is a 72 year old male with history of chronic hyponatremia, chronic kidney disease. CHF, chronic respiratory on 4 L NC who presents for evaluation of fall. His states patient fell almost 2 weeks ago due to difficulty walking due to fluid overload. She states she has noticed over the past 3 days patient seems to be slightly confused. She reports he has repeated asked what today was. She also reports since his fall he has episodes of sharp shooting pain in his head. Patient thinks he is here for his breathing He denies headache, nausea, vomiting. Related Data Home Medications Medication Instructions Recorded Confirmed atorvastatin 20 mg tablet 20 mg PO HS 08/10/19 07/23/23 metoprolol tartrate 25 mg tablet 12.5 mg PO Q12H 08/10/19 07/23/23 potassium chloride 20 mEq 20 meq PO BID 03/28/23 07/23/23 tablet,extended release(part/cryst) (Klor-Con M) spironolactone 25 mg tablet 25 mg PO DAILY 03/28/23 07/23/23 umeclidinium 62.5 mcg-vilanterol 1 inh inhalation DAILY 03/28/23 07/23/23 25 mcg/actuation powdr for inhalation (Anoro Ellipta) empagliflozin 10 mg tablet 10 mg PO DAILY 05/06/23 07/23/23 (Jardiance) mycophenolate mofetil 500 mg tablet 500 mg PO BID 05/06/23 07/23/23 albuterol 1 puff inhalation PRN PRN sob 07/23/23 07/23/23 metolazone 2.5 mg tablet 25 mg PO DAILY 07/23/23 07/23/23 Allergies Allergy/AdvReac Type Severity Reaction Status Date / Time lisinopril AdvReac Mild MILD COUGH Verified 07/23/23 14:22 Review of Systems Constitutional: Constitutional: Reports weakness Cardiovascular: Cardiovascular: Denies syncope, Denies rapid heart rate, Denies irregular heart rhythm, Denies leg edema and Reports dyspnea Respiratory: Respiratory: Denies chest congestion, Denies hemoptysis, Denies excessive phlegm production and Reports dyspnea Gastrointestinal: Gastrointestinal: Denies abdominal pain, Denies hematochezia, Denies diarrhea and Denies vomiting Genitourinary: Genitourinary: Denies hematuria, Denies dysuria, Denies penile discharge and Denies testicular pain Musculoskeletal: Musculoskeletal: Denies joint swelling, Denies loss of height and Denies muscle weakness Neurologic: Denies syncope, Reports headache(s), Denies focal weakness and Denies weakness [facility] Past Medical History Medical History (Updated 07/23/23 @ 23:32 by Greer De Leon MD) Chronic interstitial lung disease Chronic obstructive pulmonary disease Chronic respiratory failure with hypoxia, on home oxygen therapy Coronary artery disease Hyperlipidemia Hypertension Obesity Obstructive sleep apnea Osteoarthritis Psoriasis Surgical History Surgical History (Updated 05/06/23 @ 17:20 by Silvia Spencer PA-C) History of cardiac catheterization History of cataract extraction History of four vessel coronary artery bypass graft (2014) History of heart artery stent History of partial knee replacement Left knee on 08/25/2019. Right knee on 01/31/2021. History of vasectomy Family History Family History Sibling Patient's brother is in good health ALS (amyotrophic lateral sclerosis) Heart attack Mother Family history of malignant neoplasm Family history of arthritis Father Heart attack Social History Social History (Updated 05/06/23 @ 22:14 by Silvia Spencer PA-C) Social History: Surrogate medical decision maker: Shea Almonte, spouse. Code status: Full code. Smoking status: Former smoker Tobacco type: cigarettes Second hand tobacco smoke exposure: No Additional smoking assessment comments: Smoked up to 2 packs of cigarettes per day Alcohol intake: former D
[2023-07-23 15:12] LABS: Basophils Percent Auto 0.4 % (0.2-1.2); Hematocrit 33.2 % (42.0-52.0); Hemoglobin 10.7 g/dL (14.0-18.0); Immature Granulocyte Absolute 0.04 K/mm3 (0.00-0.031); Immature Granulocyte Percent A 0.7 % (0-0.5); Immature Platelet Fraction Pct 8.3 % (0.9-11.2); Lymphocytes Absolute Auto 0.57 K/mm3 (0.9-3.2); Lymphocytes Percent Auto 10.6 % (18.3-44.2); Mean Corpuscular HGB Conc 32.2 g/dl (32-36); Mean Corpuscular Hemoglobin 34.9 pg (26-34); Mean Corpuscular Volume 108.1 fl (80-100); Mean Platelet Volume 10.5 fl (7.4-10.4); Monocytes Absolute Auto 0.7 K/mm3 (0.1-0.6); Monocytes Percent Auto 13.2 % (2.6-8.5); Neutrophils Percent Auto 75.1 % (45.5-73.1); Platelet Count Result 131 k/mm3 (150-375); Red Blood Count 3.07 M/mm3 (4.6-6.20); Red Cell Distribution Width 16.6 % (11.5-14.5); White Blood Count 5.4 K/mm3 (4.5-10.0)
[2023-07-23 15:24] LABS: Alanine Aminotransferase 24 U/L (6-50); Albumin Level 3.8 g/dL (3.5-5.1); Alkaline Phosphatase 112 U/L (38-126); Anion Gap 14 mmol/L (8-16); Aspartate Amino Transferase 32 U/L (17-59); Bilirubin,Total 2.7 mg/dL (0.2-1.3); Blood Urea Nitrogen 53 mg/dL (9-20); Calcium 8.8 mg/dL (8.4-10.2); Carbon Dioxide 23 mmol/L (22-30); Chloride 84 mmol/L (98-107); Estimated CRCL calculation 31 ml/min; Estimated Glomerular Filt Rate 40; Glucose 101 mg/dL (65-110); Potassium 4.1 mmol/L (3.4-5.0); Sodium 121 mmol/L (137-145)
[2023-07-23 15:25] LABS: INR 2.6; Partial Thromboplastin Time 35.5 SECONDS (22.3-36.8); Prothrombin Time 29.4 Seconds (11.1-14.7)
[2023-07-23 15:30] LABS: Appearance Urine Clear (Clear); Bacteria Urine None Seen /hpf; Bilirubin Urine Negative (Negative); Blood Urine Negative (Negative); Color Urine Yellow (Yellow); Glucose Urine UA Trace mg/dL (Negative); Ketones Urine Negative (Negative); Leukocyte Esterase Ur Negative LEU/UL (Negative); Nitrate Urine Negative (Negative); Protein Urine 1+ mg/dL (Negative); RBC Urine 0-2 /hpf (0-2); Squamous Epithelial Cell Urine None seen /hpf (Few); WBC Urine 0-5 /hpf
[2023-07-23 15:35] LABS: Platelet Estimate Decreased (Adequate)
[2023-07-23 15:36] LABS: Anisocytosis 2+ (NORMAL); Macrocytosis 1+ (NORMAL); Schistocytes None Seen (NORMAL)
[2023-07-23 15:37] LABS: Hypochromasia 1+ (NORMAL)
[2023-07-23 15:40] LABS: Add Urine Microscopic? YES
[2023-07-23 15:47] LABS: SARS-CoV-2 RNA PCR Negative (Negative)
--- NOTE | 2023-07-23 20:17 | PM.IMHP ---
H&P: HPI History of Present Illness Date/Time: 07/23/23 20:17 Chief Complaint: AMS Narrative: THIS IS A 72-YEAR-OLD MALE WITH PAST MEDICAL HISTORY SIGNIFICANT FOR CHRONIC HYPONATREMIA, ATRIAL FIBRILLATION, HYPERTENSION, CHRONIC OBSTRUCTIVE PULMONARY DISEASE, CORONARY ARTERY DISEASE, OBSTRUCTIVE SLEEP APNEA, HYPERTENSION. PATIENT WAS BROUGHT TO THE EMERGENCY ROOM FOR EVALUATION DUE TO ALTERED MENTAL STATUS, CONFUSION. ACCORDING TO HE PATIENT STATES THAT HIS HERE BECAUSE OF SHORTNESS OF BREATH AT THE TIME OF MY VISIT A COATING GET MUCH INFORMATION MEANINGFUL CONTRIBUTORY TO PATIENT'S HISTORY. PATIENT HAD HAD A FALL AT HOME WELL.PRELIMINARY WORKUP WAS SIGNIFICANT FOR A SODIUM 121 A CREATININE OF 1.7 CHLORIDE 80 BUN 53. PATIENT IS BEEN ADMITTED FOR FURTHER EVALUATION MANAGEMENT AND TREATMENT EXAMINATION: CT brain wo con DATE: 07/23/2023 14:45 INDICATION: Headache. Fall. TECHNIQUE: Computed tomography (CT) of the head was performed without intravenous contrast. The mA was adjusted according to patient size. Iterative reconstruction technique was employed. The dose-length product was 605.33 mGy-cm. COMPARISON: None FINDINGS: There are scattered areas of low attenuation in the cerebral white matter. There is no intracranial hemorrhage, acute infarction, or abnormal intracranial mass lesion. The ventricles are normal in size. The paranasal sinuses are clear. There are likely changes of ocular lens replacement surgeries. The mastoid air cells are normal. IMPRESSION: 1. Mild nonspecific cerebral white matter disease, which likely represents chronic small vessel ischemic disease. EXAMINATION: XR chest 1V DATE: 07/23/2023 14:48 INDICATION: Confusion. TECHNIQUE: A single frontal view of the chest was obtained. COMPARISON: Chest single view 05/06/2023 FINDINGS: There is a chronic diffuse interstitial pattern in the lungs. No pleural effusion or pneumothorax. Cardiomegaly is noted. Median sternotomy wires and mediastinal surgical clips are seen, likely from prior coronary artery bypass grafting. IMPRESSION: 1. Stable chronic interstitial lung disease. 2. Cardiomegaly. EXAMINATION: CT cervical spine wo con DATE: 07/23/2023 14:45 INDICATION: Neck pain. Fall. TECHNIQUE: Computed tomography (CT) of the cervical spine was performed without intravenous contrast. Automated exposure control and iterative reconstruction technique were employed. The dose-length product was 289.88 mGy-cm. COMPARISON: None FINDINGS: The visualized portions of the lung apices demonstrate chronic interstitial lung disease. There is 13 degrees levoscoliosis of cervical spine. There is 2 mm anterolisthesis of C3 on C4, C4 on C5, and C5 on C6. Vertebral body heights are normal. There is mildly decreased disc height at C3-C4, C4-C5, and C5-C6, severely decreased disc height at C6-C7, and mildly decreased disc height at C7-T1. The following disc levels are specifically discussed: C2-C3: There is mild right uncovertebral joint osteoarthritis. There is severe right and mild left facet joint osteoarthritis. There is mild right neural foraminal stenosis. There is no central canal stenosis. C3-C4: There is mild bilateral uncovertebral joint osteoarthritis. There is severe bilateral facet joint osteoarthritis. There is mild bilateral neural foraminal stenosis. There is mild central canal stenosis. C4-C5: There is mild bilateral uncovertebral joint osteoarthritis. There is severe bilateral facet joint osteoarthritis. There is mild bilateral neural foraminal stenosis. There is mild central canal stenosis. C5-C6: There is severe right and moderate left uncovertebral joint osteoarthritis. There is severe bilateral facet joint osteoarthritis. There is mild bilateral neural foraminal stenosis. There is mild central canal stenosis. C6-C7: There is severe bilateral uncovertebral joint osteoarthritis. There is severe bilateral facet joint osteoarthritis. There is mild
--- NOTE | 2023-07-23 20:56 | ADMGEN ---
This patient, Mikey Almonte, was admitted to [facility] Surg Room 304-01. Patient/family oriented to hospital policies and general routines including ID bracelet, bed and alarms, visiting hours, pain management, procedures, bathroom and other care routines, personal items, smoking policy, room service/diet, and visiting hours. Information on how to activate the Rapid Response Team has been discussed. Patient/Family are encouraged to report perceived risks to care and to ask questions if they do not understand what they are told or what they should do.
[2023-07-24] VITALS (13 sets, daily range): BP systolic 92–101; BP diastolic 50–70; PULSE 70–96; RESP 18–20; TEMP 36.2–37.1; O2SAT 74–100
[2023-07-24 00:33] LABS: Iron 64 ug/dL (49-181)
[2023-07-24 00:36] LABS: Transferrin 222 mg/dL (206-381)
[2023-07-24 00:43] LABS: Percent Iron Saturation 20 % (20-50)
[2023-07-24] MEDS: METOPROLOL TARTRATE 12.5 MG TABLET PO ×3 (01:22→21:29)
[2023-07-24] MEDS: SODIUM CHLORIDE 0.9% IV 1,000 ML 100 ML IV CONT ×2 (01:25→13:47)
[2023-07-24] MEDS: ACETAMINOPHEN 500 MG TABLET 1000 MG PO (06:00)
[2023-07-24 07:01] LABS: Basophils Percent Auto 0.4 % (0.2-1.2); Eosinophils Percent Auto 0.5 % (0-4.4); Hematocrit 31.8 % (42.0-52.0); Hemoglobin 10.4 g/dL (14.0-18.0); Immature Granulocyte Absolute 0.03 K/mm3 (0.00-0.031); Immature Granulocyte Percent A 0.5 % (0-0.5); Immature Platelet Fraction Pct 7.5 % (0.9-11.2); Lymphocytes Absolute Auto 0.64 K/mm3 (0.9-3.2); Lymphocytes Percent Auto 11.7 % (18.3-44.2); Mean Corpuscular HGB Conc 32.7 g/dl (32-36); Mean Corpuscular Hemoglobin 34.7 pg (26-34); Mean Platelet Volume 10.5 fl (7.4-10.4); Monocytes Absolute Auto 0.8 K/mm3 (0.1-0.6); Monocytes Percent Auto 13.9 % (2.6-8.5); Platelet Count Result 124 k/mm3 (150-375); Red Cell Distribution Width 15.8 % (11.5-14.5); White Blood Count 5.5 K/mm3 (4.5-10.0)
[2023-07-24 07:13] LABS: Alanine Aminotransferase 21 U/L (6-50); Albumin Level 3.5 g/dL (3.5-5.1); Alkaline Phosphatase 114 U/L (38-126); Anion Gap 11 mmol/L (8-16); Aspartate Amino Transferase 27 U/L (17-59); Bilirubin,Total 2.3 mg/dL (0.2-1.3); Blood Urea Nitrogen 49 mg/dL (9-20); Calcium 8.7 mg/dL (8.4-10.2); Carbon Dioxide 27 mmol/L (22-30); Chloride 85 mmol/L (98-107); Estimated CRCL calculation 33 ml/min; Estimated Glomerular Filt Rate 42; Glucose 85 mg/dL (65-110); Potassium 3.1 mmol/L (3.4-5.0); Sodium 123 mmol/L (137-145)
[2023-07-24] MEDS: UMECLIDINIUM/VILANTEROL 62.5-25 MCG ELLIPTA 1 PUFF INHALATION (07:31)
[2023-07-24 07:37] LABS: Anisocytosis 1+ (NORMAL); Burr Cells 1+ (NORMAL); Macrocytosis 1+ (NORMAL); Schistocytes None Seen (NORMAL)
[2023-07-24 08:29] LABS: Glucose Point of Care 95 mg/dl (65-105)
[2023-07-24] MEDS: RIVAROXABAN 15 MG TABLET PO (09:12)
[2023-07-24] MEDS: SODIUM CHLORIDE 1 GM TABLET PO ×2 (09:12→18:14)
[2023-07-24] MEDS: POTASSIUM CHLORIDE 20 MEQ ER TABLET 40 MEQ PO (09:12)
[2023-07-24] MEDS: mycophenolate mofetiL 250 MG CAPSULE 500 MG PO ×2 (09:12→18:14)
--- NOTE | 2023-07-24 11:21 | PM.IMPN ---
Progress Note: A&P Assessment and Plan (1) Acute hyponatremia: Code(s): E87.1 - Hypo-osmolality and hyponatremia Status: Acute Assessment and Plan: 07/24: Nephrology consulted, sodium 123 this morning. (2) Chronic obstructive pulmonary disease: Code(s): J44.9 - Chronic obstructive pulmonary disease, unspecified Status: Chronic Assessment and Plan: NOT ACTIVELY WHEEZING, continue supplemental oxygen (3) Acute kidney injury superimposed on CKD: Code(s): N17.9 - Acute kidney failure, unspecified; N18.9 - Chronic kidney disease, unspecified Status: Acute Assessment and Plan: LIKELY PRE RENAL AZOTEMIA HOLDING SPIRONOLACTONE HOLDING METOLAZONE (4) A-fib: Code(s): I48.91 - Unspecified atrial fibrillation Status: Acute Assessment and Plan: RATE CONTROLLED ANTICOAGULATED (5) Chronic respiratory failure with hypoxia, on home oxygen therapy: Code(s): J96.11 - Chronic respiratory failure with hypoxia; Z99.81 - Dependence on supplemental oxygen Status: Acute Assessment and Plan: CONTINUE SUPPLEMENTAL OXYGEN (6) Obstructive sleep apnea: Code(s): G47.33 - Obstructive sleep apnea (adult) (pediatric) Status: Acute Assessment and Plan: CURRENTLY ON SUPPLEMENTAL OXYGEN BY NASAL CANNULA (7) Chronic interstitial lung disease: Code(s): J84.9 - Interstitial pulmonary disease, unspecified Status: Acute Assessment and Plan: UNCHANGED Plan Nephrology consulted for DUGLAS on CKD and acute on chronic hyponatremia Time Spent With Patient Time with patient: Greater than 35 minutes Subjective Date/time seen: 07/24/23 11:21 Interval history: This is a 72-year-old male patient states he was admitted to the hospital because fell down twice and hit his head and was having headaches. His is at bedside supplementing history. She reports that patient had blood drawn and they were directed to the emergency department due to sodium level of 121. For the past 4 days patient has been more tired less energetic and just feeling ?off.? Patient sees Cardiology and Nephrology at [facility] but came to our facility because they live closer. Nephrology was consulted emergency department. Patient was started on IV fluids and diuretics were held. He was DUGLAS CKD as well as hyponatremia. He has chronic hyponatremia in with recent baselines 125-127 per records in our system. Patient denied difficulty breathing states he has oxygen at home that he wears at night and as needed throughout the day. Patient denies chest pain bowel or bladder dysfunction nausea vomiting or any other concerning symptoms at this time. was asking for wheelchair and shower chair to be prescribed. Case management notified. Review of Systems Review of Systems: All systems reviewed & are unremarkable except as noted in HPI and below Exam Narrative: GENERAL: Generally well appearing, alert and oriented, in no apparent distress. He is pleasant and conversant in full sentences. HEENT: Pupils are equally round and briskly reactive to light. Extraocular muscles are intact. Oral mucous membranes are moist without lesions. NECK: The patient has no noted JVD. No adenopathy is appreciated. CHEST/LUNGS: Lungs are clear bilaterally without rhonchi, rales, or wheezes. HEART: The patient has a regular rate and rhythm. No murmurs, rubs, or gallops are appreciated. Distal pulses are 2+. ABDOMEN: The patient?s abdomen is soft, nontender, and nondistended. Bowel sounds are positive. EXTREMITIES: The patient has no peripheral edema. There is no focal long bone tenderness or deformity. SKIN: The patient?s skin is warm and dry, without rashes or lesions. Scattered bruises and scabbed abrasions. PSYCHIATRIC: The patient has normal mental status and has an appropriate affect. NEUROLOGIC: There are no gross deficits to the cranial nerves. Patient ambulates well with a cane and w
[2023-07-24 11:55] LABS: Glucose Point of Care 120 mg/dl (65-105)
--- NOTE | 2023-07-24 13:30 | P.CONNP_ITS ---
Assessment and Plan Assessment and plan (1) Hyponatremia: Code(s): E87.1 - Hypo-osmolality and hyponatremia Status: Chronic Assessment and Plan: * acute on chronic * has had issues with low sodium as far back as 2014 (from review of [facility] records) * however, seems more significant/pronounced in the last few months: * since March 2023, sodium running ~ 124 - 133mmol/L * however, has been as high as 135 - 140mmol/L earlier this year * was 127 on last hospital discharge (late April 2023) * suspect related to high dose diuretic therapy needed to maintain volume status * other likely contributing factors: * chronic lung disease (COPD + ILD) * diuretics (including metolazone which is a thiazide diuretic) * increased free water intake (?) * previous testing noted on last hospitalization * TSH okay * cortisol and associated stim test okay * SPE and UPE negative for paraproteineia * serum osmo lowish and urine osmo elevated in comparison * urine electrolytes prerenal * will recheck urine electrolytes * agree with trial of holding diuretics * start fluid restriction * follow trend of repeat sodium (2) Stage 3b chronic kidney disease: Code(s): N18.32 - Chronic kidney disease, stage 3b Status: Chronic Assessment and Plan: * baseline creatinine runs ~ 1.6 - 2.0mg/dl since December 2022 * normal creatinine on last admission due to holding diuretics * suspect secondary to need for diuretic therapy, CAD/CHF, HTN, vascular disease and age (3) CHF (congestive heart failure): Code(s): I50.9 - Heart failure, unspecified Status: Chronic Assessment and Plan: * no evidence of exacerbation * appears euvolemic at this time * diuretics on hold for now (but will eventually need to restart) * follows with [facility]iology (4) Chronic obstructive pulmonary disease: Code(s): J44.9 - Chronic obstructive pulmonary disease, unspecified Status: Chronic Assessment and Plan: * on chronic oxygen * no exacerbation at this time * continue home medications/inhalers * follows with [facility] Pulmonary I will continue follow patient with you while he remains hospitalized and make further recommendations as needed. Thank you for allowing me to participate in the care of this patient. History of Present Illness Reason for Consult Consult date: 07/24/23 Reason for consult: hyponatremia Chief Complaint Chief complaint: Hyponataremia,Confusion History of Present Illness Narrative: The patient is a 72-year-old male with a past medical history as outlined below who presented to [facility] Emergency room for further evaluation of altered mental status and confusion in association with falls. According to the patient's family, the patient has had recent falls with one apparent fall resulted in a trauma to his head. He apparently did not seek any medical attention with that fall but his family his reported that he has been off since that time. He reports no other acute issues or complaints and was not really clear on why he was in the hospital in the 1st place during my interview with him. In any case, he was brought to the ER for further a ssessment. Workup and evaluation in the emergency room demonstrated the patient to be hemodynamically stable and in no acute distress. Routine blood tests were significant for a sodium of 121 as well as a creatinine of 1.7 but with no other critical electrolyte abnormalities. He does have a known history of chronic renal insufficiency as well as chronic hyponat
--- NOTE | 2023-07-24 13:30 | PM.CNNEP ---
Assessment and Plan Assessment and plan (1) Hyponatremia: Code(s): E87.1 - Hypo-osmolality and hyponatremia Status: Chronic Assessment and Plan: acute on chronic has had issues with low sodium as far back as 2014 (from review of [facility] records) however, seems more significant/pronounced in the last few months: since March 2023, sodium running ~ 124 - 133mmol/L however, has been as high as 135 - 140mmol/L earlier this year was 127 on last hospital discharge (late April 2023) suspect related to high dose diuretic therapy needed to maintain volume status other likely contributing factors: chronic lung disease (COPD + ILD) diuretics (including metolazone which is a thiazide diuretic) increased free water intake (?) previous testing noted on last hospitalization TSH okay cortisol and associated stim test okay SPE and UPE negative for paraproteineia serum osmo lowish and urine osmo elevated in comparison urine electrolytes prerenal will recheck urine electrolytes agree with trial of holding diuretics start fluid restriction follow trend of repeat sodium (2) Stage 3b chronic kidney disease: Code(s): N18.32 - Chronic kidney disease, stage 3b Status: Chronic Assessment and Plan: baseline creatinine runs ~ 1.6 - 2.0mg/dl since December 2022 normal creatinine on last admission due to holding diuretics suspect secondary to need for diuretic therapy, CAD/CHF, HTN, vascular disease and age (3) CHF (congestive heart failure): Code(s): I50.9 - Heart failure, unspecified Status: Chronic Assessment and Plan: no evidence of exacerbation appears euvolemic at this time diuretics on hold for now (but will eventually need to restart) follows with [facility] Cardiology (4) Chronic obstructive pulmonary disease: Code(s): J44.9 - Chronic obstructive pulmonary disease, unspecified Status: Chronic Assessment and Plan: on chronic oxygen no exacerbation at this time continue home medications/inhalers follows with [facility] Pulmonary I will continue follow patient with you while he remains hospitalized and make further recommendations as needed. Thank you for allowing me to participate in the care of this patient. History of Present Illness Reason for Consult Consult date: 07/24/23 Reason for consult: hyponatremia Chief Complaint Chief complaint: Hyponataremia,Confusion History of Present Illness Narrative: The patient is a 72-year-old male with a past medical history as outlined below who presented to [facility] Emergency room for further evaluation of altered mental status and confusion in association with falls. According to the patient's family, the patient has had recent falls with one apparent fall resulted in a trauma to his head. He apparently did not seek any medical attention with that fall but his family his reported that he has been off since that time. He reports no other acute issues or complaints and was not really clear on why he was in the hospital in the 1st place during my interview with him. In any case, he was brought to the ER for further assessment. Workup and evaluation in the emergency room demonstrated the patient to be hemodynamically stable and in no acute distress. Routine blood tests were significant for a sodium of 121 as well as a creatinine of 1.7 but with no other critical electrolyte abnormalities. He does have a known history of chronic renal insufficiency as well as chronic hyponatremia. Given these laboratory findings as well as the previous history of falls and reported altered mentation, he is admitted to the hospital for further evaluation and therapy. Since his admission, he seems to be doing somewhat better although once again, he reports he does not know how he really feels at the time my visit. His family reports that prior to my arrival to the room, he reported that he
[2023-07-24] MEDS: EMPAGLIFLOZIN 10 MG TABLET PO (13:47)
[2023-07-24 16:33] LABS: Glucose Point of Care 135 mg/dl (65-105)
[2023-07-24 17:31] LABS: Sodium 122 mmol/L (137-145)
--- NOTE | 2023-07-24 17:43 | PC.NURSE ---
Sodium level called to provider. No orders received.
[2023-07-24] MEDS: POTASSIUM CHLORIDE 20 MEQ ER TABLET PO (18:14)
[2023-07-24 21:06] LABS: Glucose Point of Care 102 mg/dl (65-105)
[2023-07-24] MEDS: ATORVASTATIN 20 MG TABLET PO (21:29)
[2023-07-25] VITALS (13 sets, daily range): BP systolic 88–103; BP diastolic 52–68; PULSE 71–109; RESP 14–20; TEMP 36.1–36.8; O2SAT 91–100
[2023-07-25] MEDS: SODIUM CHLORIDE 0.9% IV 1,000 ML 100 ML IV CONT (04:24)
[2023-07-25 06:37] LABS: Albumin Level 3.7 g/dL (3.5-5.1); Anion Gap 13 mmol/L (8-16); Blood Urea Nitrogen 43 mg/dL (9-20); Calcium 8.5 mg/dL (8.4-10.2); Carbon Dioxide 20 mmol/L (22-30); Chloride 89 mmol/L (98-107); Estimated CRCL calculation 40 ml/min; Estimated Glomerular Filt Rate 54; Glucose 91 mg/dL (65-110); Phosphorus 3.7 mg/dL (2.5-4.5); Potassium 2.8 mmol/L (3.4-5.0); Sodium 122 mmol/L (137-145)
[2023-07-25] MEDS: UMECLIDINIUM/VILANTEROL 62.5-25 MCG ELLIPTA 1 PUFF INHALATION (06:54)
[2023-07-25 07:51] LABS: Glucose Point of Care 99 mg/dl (65-105)
[2023-07-25] MEDS: RIVAROXABAN 15 MG TABLET PO (09:03)
[2023-07-25] MEDS: EMPAGLIFLOZIN 10 MG TABLET PO (09:03)
[2023-07-25] MEDS: METOPROLOL TARTRATE 12.5 MG TABLET PO (09:03)
[2023-07-25] MEDS: POTASSIUM CHLORIDE 20 MEQ ER TABLET 40 MEQ PO (09:03)
[2023-07-25] MEDS: SODIUM CHLORIDE 1 GM TABLET PO ×2 (09:03→17:37)
[2023-07-25] MEDS: mycophenolate mofetiL 250 MG CAPSULE 500 MG PO ×2 (09:03→17:37)
[2023-07-25] MEDS: POTASSIUM CHLORIDE 20 MEQ ER TABLET PO ×2 (09:06→17:37)
[2023-07-25] MEDS: INSULIN ASPART (*BKC) 100 UNITS/ML SUB-Q ×2 (09:09→12:08)
--- NOTE | 2023-07-25 10:08 | PM.IMPN ---
Progress Note: A&P Assessment and Plan (1) Acute hyponatremia: Code(s): E87.1 - Hypo-osmolality and hyponatremia Status: Acute Assessment and Plan: 07/24: Nephrology consulted, sodium 123 this morning. 07/25: Sodium 122 this morning, appreciate Nephrology assistance. (2) Chronic obstructive pulmonary disease: Code(s): J44.9 - Chronic obstructive pulmonary disease, unspecified Status: Chronic Assessment and Plan: NOT ACTIVELY WHEEZING, continue supplemental oxygen (3) Acute kidney injury superimposed on CKD: Code(s): N17.9 - Acute kidney failure, unspecified; N18.9 - Chronic kidney disease, unspecified Status: Acute Assessment and Plan: LIKELY PRE RENAL AZOTEMIA HOLDING SPIRONOLACTONE HOLDING METOLAZONE (4) A-fib: Code(s): I48.91 - Unspecified atrial fibrillation Status: Acute Assessment and Plan: RATE CONTROLLED ANTICOAGULATED (5) Chronic respiratory failure with hypoxia, on home oxygen therapy: Code(s): J96.11 - Chronic respiratory failure with hypoxia; Z99.81 - Dependence on supplemental oxygen Status: Acute Assessment and Plan: CONTINUE SUPPLEMENTAL OXYGEN (6) Obstructive sleep apnea: Code(s): G47.33 - Obstructive sleep apnea (adult) (pediatric) Status: Acute Assessment and Plan: CURRENTLY ON SUPPLEMENTAL OXYGEN BY NASAL CANNULA (7) Chronic interstitial lung disease: Code(s): J84.9 - Interstitial pulmonary disease, unspecified Status: Acute Assessment and Plan: UNCHANGED Plan Nephrology consulted for DUGLAS on CKD and acute on chronic hyponatremia Once sodium is stable patient will likely be to discharge home. Time Spent With Patient Time with patient: 25 - 35 minutes Subjective Date/time seen: 07/25/23 10:08 Interval history: 07/24: This is a 72-year-old male patient states he was admitted to the hospital because fell down twice and hit his head and was having headaches. His is at bedside supplementing history. She reports that patient had blood drawn and they were directed to the emergency department due to sodium level of 121. For the past 4 days patient has been more tired less energetic and just feeling ?off.? Patient sees Cardiology and Nephrology at [facility] but came to our facility because they live closer. Nephrology was consulted emergency department. Patient was started on IV fluids and diuretics were held. He was DUGLAS CKD as well as hyponatremia. He has chronic hyponatremia in with recent baselines 125-127 per records in our system. Patient denied difficulty breathing states he has oxygen at home that he wears at night and as needed throughout the day. Patient denies chest pain bowel or bladder dysfunction nausea vomiting or any other concerning symptoms at this time. was asking for wheelchair and shower chair to be prescribed. Case management notified. 07/25: Patient reports that he is feeling well at the moment. He is still using oxygen around the clock. He denies difficulty breathing. Sodium level remains unchanged despite fluid restriction at this time. IV fluids stopped. Diuretics remain on hold. Appreciate Nephrology assistance in managing sodium. Review of Systems Review of Systems: All systems reviewed & are unremarkable except as noted in HPI and below Exam Narrative: GENERAL: Generally well appearing, alert and oriented, in no apparent distress. He is pleasant and conversant in full sentences. HEENT: Pupils are equally round and briskly reactive to light. Extraocular muscles are intact. Oral mucous membranes are moist without lesions. NECK: The patient has no noted JVD. No adenopathy is appreciated. CHEST/LUNGS: Lungs are clear bilaterally without rhonchi, rales, or wheezes. HEART: The patient has a regular rate and rhythm. No murmurs, rubs, or gallops are appreciated. Distal pulses are 2+. ABDOMEN: The patient?s abdomen is soft, nontende
[2023-07-25 11:42] LABS: Glucose Point of Care 110 mg/dl (65-105)
--- NOTE | 2023-07-25 13:01 | PM.PNNEP ---
Progress Note: A&P Assessment and Plan (1) Hyponatremia: Code(s): E87.1 - Hypo-osmolality and hyponatremia Status: Chronic Assessment and Plan: acute on chronic has had issues with low sodium as far back as 2014 (from review of [facility] records) however, seems more significant/pronounced in the last few months: since March 2023, sodium running ~ 124 - 133mmol/L however, has been as high as 135 - 140mmol/L earlier this year was 127 on last hospital discharge (late April 2023) suspect related to high dose diuretic therapy needed to maintain volume status other likely contributing factors: chronic lung disease (COPD + ILD) diuretics (including metolazone which is a thiazide diuretic) increased free water intake (?) previous testing noted on last hospitalization TSH okay cortisol and associated stim test okay SPE and UPE negative for paraproteineia serum osmo lowish and urine osmo elevated in comparison urine electrolytes prerenal will recheck urine electrolytes agree with trial of holding diuretics started fluid restriction started on salt tablets follow trend of repeat sodium (2) Stage 3b chronic kidney disease: Code(s): N18.32 - Chronic kidney disease, stage 3b Status: Chronic Assessment and Plan: baseline creatinine runs ~ 1.6 - 2.0mg/dl since December 2022 normal creatinine on last admission due to holding diuretics suspect secondary to need for diuretic therapy, CAD/CHF, HTN, vascular disease and age (3) CHF (congestive heart failure): Code(s): I50.9 - Heart failure, unspecified Status: Chronic Assessment and Plan: no evidence of exacerbation appears euvolemic at this time diuretics on hold for now (but will eventually need to restart) follows with [facility] Cardiology (4) Chronic obstructive pulmonary disease: Code(s): J44.9 - Chronic obstructive pulmonary disease, unspecified Status: Chronic Assessment and Plan: on chronic oxygen no exacerbation at this time continue home medications/inhalers follows with [facility] Pulmonary Will continue to follow. Subjective Date/time seen: 07/25/23 13:01 Interval history: Follow-up for acute on chronic hyponatremia. The patient states that he feel okay at the time of my visit; sodium is unchanged although he was receiving normal saline IVFs up until this morning; no apparent distress noted; no other issues/events overnight or earlier this morning. Exam Narrative: General: elderly but WD/WN male in NAD Heart: normal S1 and S2; no rub Lungs: coarse breath sounds Abdomen: soft, nontender, nondistended, positive bowel sounds Extremities: no cyanosis or clubbing; no edema Skin: warm and dry Objective Data Vital Signs Vital Signs: Vital Signs Temp Pulse Resp BP Pulse Ox O2 Del Method O2 Flow Rate 07/25/23 12:00 77 07/25/23 08:00 89 07/25/23 16:00 Nasal Cannula 3 07/25/23 08:00 84 14 91 Nasal Cannula 4 07/25/23 14:00 97.4 F L 84 14 88/61 L 91 07/25/23 09:03 86 07/25/23 08:35 Nasal Cannula 4 07/25/23 07:05 84 16 07/25/23 07:05 84 16 98 Nasal Cannula 4 07/25/23 06:00 96.9 F L 92 16 99/68 L 100 07/25/23 04:00 109 H 07/25/23 00:00 71 07/24/23 20:00 96 07/24/23 22:00 97.5 F L 96 18 101/70 98 07/24/23 21:29 84 Intake/Output Intake/Output: Intake & Output 07/22/23 07/23/23 07/24/23 07/25/23 23:59 23:59 23:59 23:59 Intake Total 3580 1190 Balance 3580 1190 Meds/Results Medications: Active Medications Generic Name Dose Route Start Last Admin Trade Name Freq PRN Reason Stop Dose Admin Acetaminophen 650 mg 07/24/23 11:41 Acetaminophen 325 Mg Tablet PO Q4H PRN Pain or Fever Albuterol 1 puff 07/23/23 23:18 Albuterol Sulfate (*Sp) Aerosol 1 Puff INHALATION PRN PRN sob
--- NOTE | 2023-07-25 13:01 | P.PNNP_ITS ---
Progress Note: A&P Assessment and Plan (1) Hyponatremia: Code(s): E87.1 - Hypo-osmolality and hyponatremia Status: Chronic Assessment and Plan: * acute on chronic * has had issues with low sodium as far back as 2014 (from review of [facility] records) * however, seems more significant/pronounced in the last few months: * since March 2023, sodium running ~ 124 - 133mmol/L * however, has been as high as 135 - 140mmol/L earlier this year * was 127 on last hospital discharge (late April 2023) * suspect related to high dose diuretic therapy needed to maintain volume status * other likely contributing factors: * chronic lung disease (COPD + ILD) * diuretics (including metolazone which is a thiazide diuretic) * increased free water intake (?) * previous testing noted on last hospitalization * TSH okay * cortisol and associated stim test okay * SPE and UPE negative for paraproteineia * serum osmo lowish and urine osmo elevated in comparison * urine electrolytes prerenal * will recheck urine electrolytes * agree with trial of holding diuretics * started fluid restriction * started on salt tablets * follow trend of repeat sodium (2) Stage 3b chronic kidney disease: Code(s): N18.32 - Chronic kidney disease, stage 3b Status: Chronic Assessment and Plan: * baseline creatinine runs ~ 1.6 - 2.0mg/dl since December 2022 * normal creatinine on last admission due to holding diuretics * suspect secondary to need for diuretic therapy, CAD/CHF, HTN, vascular disease and age (3) CHF (congestive heart failure): Code(s): I50.9 - Heart failure, unspecified Status: Chronic Assessment and Plan: * no evidence of exacerbation * appears euvolemic at this time * diuretics on hold for now (but will eventually need to restart) * follows with [facility] Cardiology (4) Chronic obstructive pulmonary disease: Code(s): J44.9 - Chronic obstructive pulmonary disease, unspecified Status: Chronic Assessment and Plan: * on chronic oxygen * no exacerbation at this time * continue home medications/inhalers * follows with [facility] Pulmonary Will continue to follow. Subjective Date/time seen: 07/25/23 13:01 Interval history: Follow-up for acute on chronic hyponatremia. The patient states that he feel okay at the time of my visit; sodium is unchanged although he was receiving normal saline IVFs up until this morning; no apparent distress noted; no other issues/events overnight or earlier this morning. Exam Narrative: General: elderly but WD/WN male in NAD Heart: normal S1 and S2; no rub Lungs: coarse breath sounds Abdomen: soft, nontender, nondistended, positive bowel sounds Extremities: no cyanosis or clubbing; no edema Skin: warm and dry Objective Data Vital Signs Vital Signs: Vital Signs Temp Pulse Resp BP Pulse Ox O2 Del Method O2 Flow Rate 07/25/23 12:00 77 07/25/23 08:00 89 07/25/23 16:00 Nasal Cannula 3 07/25/23 08:00 84 14 91 Nasal Cannula 4 07/25/23 14:00 97.4 F L 84 14 88/61 L 91 07/25/23 09:03 86 07/25/23 08:35 Nasal Cannula 4 07/25/23 07:05 84 16 07/25/23 07:05 84 16 98 Nasal Cannula 4 07/25/23 06:00 96.9 F L 92 16 99/68 L 100 07/25/23 04:00 109 H
[2023-07-25] MEDS: SODIUM CHLORIDE 0.9% IV 500 ML 999 ML IV CONT (15:21)
[2023-07-25 16:36] LABS: Glucose Point of Care 78 mg/dl (65-105)
[2023-07-25] MEDS: ATORVASTATIN 20 MG TABLET PO (21:16)
[2023-07-25 22:12] LABS: Glucose Point of Care 124 mg/dl (65-105)
[2023-07-26] VITALS (13 sets, daily range): BP systolic 98–119; BP diastolic 62–79; PULSE 66–112; RESP 18–20; TEMP 36.1–36.4; O2SAT 88–97
[2023-07-26 07:12] LABS: Alanine Aminotransferase 21 U/L (6-50); Albumin Level 3.4 g/dL (3.5-5.1); Alkaline Phosphatase 113 U/L (38-126); Anion Gap 9 mmol/L (8-16); Aspartate Amino Transferase 29 U/L (17-59); Bilirubin,Total 2.2 mg/dL (0.2-1.3); Blood Urea Nitrogen 38 mg/dL (9-20); Calcium 8.4 mg/dL (8.4-10.2); Carbon Dioxide 23 mmol/L (22-30); Chloride 89 mmol/L (98-107); Estimated CRCL calculation 40 ml/min; Estimated Glomerular Filt Rate 54; Glucose 87 mg/dL (65-110); Potassium 3.6 mmol/L (3.4-5.0); Sodium 121 mmol/L (137-145)
[2023-07-26 07:40] LABS: Glucose Point of Care 85 mg/dl (65-105)
[2023-07-26] MEDS: UMECLIDINIUM/VILANTEROL 62.5-25 MCG ELLIPTA 1 PUFF INHALATION (08:16)
--- NOTE | 2023-07-26 09:31 | PM.IMPN ---
Progress Note: A&P Assessment and Plan (1) Acute hyponatremia: Code(s): E87.1 - Hypo-osmolality and hyponatremia Status: Acute Assessment and Plan: 07/24: Nephrology consulted, sodium 123 this morning. 07/25: Sodium 122 this morning, appreciate Nephrology assistance. 07/26: Sodium 121 this morning, Nephrology has not yet rounded, patient may benefit from 3% saline. (2) Chronic obstructive pulmonary disease: Code(s): J44.9 - Chronic obstructive pulmonary disease, unspecified Status: Chronic Assessment and Plan: NOT ACTIVELY WHEEZING, continue supplemental oxygen, appreciate attempts to wean but pt likely requires 24 hours/day 2-4 liters/minute with diuretics on hold. (3) Acute kidney injury superimposed on CKD: Code(s): N17.9 - Acute kidney failure, unspecified; N18.9 - Chronic kidney disease, unspecified Status: Acute Assessment and Plan: LIKELY PRE RENAL AZOTEMIA HOLDING SPIRONOLACTONE HOLDING METOLAZONE Improved since admission, likely due to diuretics on hold (4) A-fib: Code(s): I48.91 - Unspecified atrial fibrillation Status: Acute Assessment and Plan: RATE CONTROLLED ANTICOAGULATED (5) Chronic respiratory failure with hypoxia, on home oxygen therapy: Code(s): J96.11 - Chronic respiratory failure with hypoxia; Z99.81 - Dependence on supplemental oxygen Status: Acute Assessment and Plan: CONTINUE SUPPLEMENTAL OXYGEN (6) Obstructive sleep apnea: Code(s): G47.33 - Obstructive sleep apnea (adult) (pediatric) Status: Acute Assessment and Plan: CURRENTLY ON SUPPLEMENTAL OXYGEN BY NASAL CANNULA (7) Chronic interstitial lung disease: Code(s): J84.9 - Interstitial pulmonary disease, unspecified Status: Acute Assessment and Plan: UNCHANGED Plan No progress on sodium levels and blood pressure borderline low even while holding diuretics. Appreciate Nephrology input/orders/guidance. Time Spent With Patient Time with patient: 25 - 35 minutes Subjective Date/time seen: 07/26/23 09:31 Interval history: Patient reports he feels fine. Minor nasal bleed, likely from dry air via NC. Continues to use oxygen at all times. No complaints of dyspnea. Have not restarted diuretics. Sodium level remains low actually decreased a point to 121. Nephrology has not yet seen patient today. Patient may benefit from 3% saline. Appreciate Nephrology's work on this stubborn hyponatremia. Review of Systems Review of Systems: All systems reviewed & are unremarkable except as noted in HPI and below Exam Narrative: GENERAL: Generally well appearing, alert and oriented, in no apparent distress. He is pleasant and conversant in full sentences. HEENT: Pupils are equally round and briskly reactive to light. Extraocular muscles are intact. Oral mucous membranes are moist without lesions. Dry nasal membranes with tissue at bedside from minor nose bleed. NECK: The patient has no noted JVD. No adenopathy is appreciated. CHEST/LUNGS: Lungs are clear bilaterally without rhonchi, rales, or wheezes. Supplemental oxygenation remains in place. HEART: The patient has an irregularly irregular rhythm. No murmurs, rubs, or gallops are appreciated. Distal pulses are 2+. ABDOMEN: The patient?s abdomen is soft, nontender, and nondistended. Bowel sounds are positive. EXTREMITIES: The patient has no peripheral edema. There is no focal long bone tenderness or deformity. SKIN: The patient?s skin is warm and dry, without rashes or lesions. Scattered bruises and scabbed abrasions. PSYCHIATRIC: The patient has normal mental status and has an appropriate affect. NEUROLOGIC: There are no gross deficits to the cranial nerves. Patient ambulates well with a cane and walker. Objective Data Vital Signs Vital Signs: Vital Signs - 24 hr 07/25/23 14:00 07/25/23 16:00 07/25/23 12:00 Temperature 36.3 C L Pulse Rate 84 77 Respiratory R
[2023-07-26] MEDS: EMPAGLIFLOZIN 10 MG TABLET PO (10:11)
[2023-07-26] MEDS: POTASSIUM CHLORIDE 20 MEQ ER TABLET PO ×2 (10:13→16:44)
[2023-07-26] MEDS: mycophenolate mofetiL 250 MG CAPSULE 500 MG PO ×2 (10:13→16:44)
[2023-07-26] MEDS: RIVAROXABAN 15 MG TABLET PO (10:13)
[2023-07-26] MEDS: SODIUM CHLORIDE 1 GM TABLET PO (10:13)
[2023-07-26] MEDS: ACETAMINOPHEN 325 MG TABLET 650 MG PO (10:13)
--- NOTE | 2023-07-26 10:59 | P.PNNP_ITS ---
Progress Note: A&P Assessment and Plan (1) Hyponatremia: Code(s): E87.1 - Hypo-osmolality and hyponatremia Status: Chronic Assessment and Plan: * acute on chronic * has had issues with low sodium as far back as 2014 (from review of [facility] records) * however, seems more significant/pronounced in the last few months: * since March 2023, sodium running ~ 124 - 133mmol/L * however, has been as high as 135 - 140mmol/L earlier this year * was 127 on last hospital discharge (late April 2023) * suspect related to high dose diuretic therapy needed to maintain volume status * He was on metolazone which is a thiazide. He is off of this now. * He is on spironolactone still. 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 * previous testing noted on last hospitalization * TSH okay * cortisol and associated stim test okay * SPE and UPE negative for paraproteineia * serum osmo was equivalent to calculated, and urine osmo elevated above where it should be. * urine electrolytes prerenal * Currently on 1500cc fluid restriction, salt tablet, and metolazone was held he did not spontaneously corrected off the metolazone so pre renal factors are still playing somewhat of a role. The pre renal issues are most likely due to his bad right-sided failure rather than being due to total body volume excess. If we give a lot of fluid he will just swell up again. * Will give tolvaptan 1 dose to see if we can get the sodium level up a little bit. This will get him home sooner. * Will stop fluid restriction (I told the patient to drink if thirsty but not if he is not. Please do not overdo this.) And salt tablets for now. * Ultimately he will need fluid restriction and possibly salt tablets plus furosemide together to keep fluid off and keep the sodium normal. Would not put him back on metolazone ever. * Check another sodium later today. (2) Stage 3b chronic kidney disease: Code(s): N18.32 - Chronic kidney disease, stage 3b Status: Chronic Assessment and Plan: * baseline creatinine runs ~ 1.6 - 2.0mg/dl since December 2022 * suspect secondary to need for diuretic therapy, CAD/CHF, HTN, vascular disease and age * At his baseline now (3) CHF (congestive heart failure): Code(s): I50.9 - Heart failure, unspecified Status: Chronic Assessment and Plan: * no evidence of exacerbation * appears euvolemic at this time * diuretics on hold for now (but will eventually need to restart) * follows with [facility] Cardiology (4) Chronic obstructive pulmonary disease: Code(s): J44.9 - Chronic obstructive pulmonary disease, unspecified Status: Chronic Assessment and Plan: * His pulmonary doctor says he does not have COPD but 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 * He has been tested for sleep apnea and this was negative. * On chronic oxygen * no exacerbation at this time * continue home medications/inhalers * follows with [facility] Subjective Date/time seen: 07/26/23 10:59 Interval history: Mikey is feeling okay. Sitting up on the side of the bed watching TV checking out his phone. He is eating okay. ?it is boring sitting here. ? Exam Narrative: General: elderly but WD/WN male in NAD Heart: normal S1 and S2; no rub or gallop Lungs: coarse breath sounds Abdomen: soft, nontender, nondistended, positive bowel sounds Extremities: no cyanosis or clubbing; no edema Skin: No rash
--- NOTE | 2023-07-26 10:59 | PM.PNNEP ---
Progress Note: A&P Assessment and Plan (1) Hyponatremia: Code(s): E87.1 - Hypo-osmolality and hyponatremia Status: Chronic Assessment and Plan: acute on chronic has had issues with low sodium as far back as 2014 (from review of [facility] records) however, seems more significant/pronounced in the last few months: since March 2023, sodium running ~ 124 - 133mmol/L however, has been as high as 135 - 140mmol/L earlier this year was 127 on last hospital discharge (late April 2023) suspect related to high dose diuretic therapy needed to maintain volume status He was on metolazone which is a thiazide. He is off of this now. He is on spironolactone still. 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 previous testing noted on last hospitalization TSH okay cortisol and associated stim test okay SPE and UPE negative for paraproteineia serum osmo was equivalent to calculated, and urine osmo elevated above where it should be. urine electrolytes prerenal Currently on 1500cc fluid restriction, salt tablet, and metolazone was held he did not spontaneously corrected off the metolazone so pre renal factors are still playing somewhat of a role. The pre renal issues are most likely due to his bad right-sided failure rather than being due to total body volume excess. If we give a lot of fluid he will just swell up again. Will give tolvaptan 1 dose to see if we can get the sodium level up a little bit. This will get him home sooner. Will stop fluid restriction (I told the patient to drink if thirsty but not if he is not. Please do not overdo this.) And salt tablets for now. Ultimately he will need fluid restriction and possibly salt tablets plus furosemide together to keep fluid off and keep the sodium normal. Would not put him back on metolazone ever. Check another sodium later today. (2) Stage 3b chronic kidney disease: Code(s): N18.32 - Chronic kidney disease, stage 3b Status: Chronic Assessment and Plan: baseline creatinine runs ~ 1.6 - 2.0mg/dl since December 2022 suspect secondary to need for diuretic therapy, CAD/CHF, HTN, vascular disease and age At his baseline now (3) CHF (congestive heart failure): Code(s): I50.9 - Heart failure, unspecified Status: Chronic Assessment and Plan: no evidence of exacerbation appears euvolemic at this time diuretics on hold for now (but will eventually need to restart) follows with [facility] (4) Chronic obstructive pulmonary disease: Code(s): J44.9 - Chronic obstructive pulmonary disease, unspecified Status: Chronic Assessment and Plan: His pulmonary doctor says he does not have COPD but 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 He has been tested for sleep apnea and this was negative. On chronic oxygen no exacerbation at this time continue home medications/inhalers follows with [facility] Subjective Date/time seen: 07/26/23 10:59 Interval history: Mikey is feeling okay. Sitting up on the side of the bed watching TV checking out his phone. He is eating okay. ?it is boring sitting here. ? Exam Narrative: General: elderly but WD/WN male in NAD Heart: normal S1 and S2; no rub or gallop Lungs: coarse breath sounds Abdomen: soft, nontender, nondistended, positive bowel sounds Extremities: no cyanosis or clubbing; no edema Skin: No rash Objective Data Vital Signs Vital Signs: Vital Signs - 24 hr 07/25/23 14:00 07/25/23 16:00 07/25/23 12:00 Temperature 97.4 F L Pulse Rate 84 77 Respiratory Rate 14 Blood Pressure 88/61 L Pulse Oximetry 91 Oxygen Delivery Nasal Cannula Oxygen Flow Rate 3 07/25/23 16:00 07/25/23 21:38 07/25/23 20:15 Temperature 98.3 F Pulse Rate 82 90 101 H Respiratory Rate 20 Blood Pressure 103/52 L Pulse Oximetry 93
[2023-07-26] MEDS: TOLVAPTAN 15 MG TABLET 1 EACH PO (11:31)
[2023-07-26 11:41] LABS: Glucose Point of Care 109 mg/dl (65-105)
[2023-07-26 16:27] LABS: Glucose Point of Care 132 mg/dl (65-105)
[2023-07-26 17:14] LABS: Sodium 124 mmol/L (137-145)
[2023-07-26] MEDS: ATORVASTATIN 20 MG TABLET PO (20:44)
[2023-07-26 21:27] LABS: Glucose Point of Care 131 mg/dl (65-105)
[2023-07-27] VITALS (13 sets, daily range): BP systolic 101–113; BP diastolic 51–72; PULSE 80–112; RESP 14–20; TEMP 36–36.2; O2SAT 88–100
[2023-07-27 06:08] LABS: Albumin Level 3.7 g/dL (3.5-5.1); Anion Gap 11 mmol/L (8-16); Blood Urea Nitrogen 32 mg/dL (9-20); Calcium 8.6 mg/dL (8.4-10.2); Carbon Dioxide 22 mmol/L (22-30); Chloride 91 mmol/L (98-107); Estimated CRCL calculation 43 ml/min; Estimated Glomerular Filt Rate 59; Glucose 92 mg/dL (65-110); Phosphorus 3.3 mg/dL (2.5-4.5); Potassium 3.8 mmol/L (3.4-5.0); Sodium 124 mmol/L (137-145)
[2023-07-27 07:42] LABS: Glucose Point of Care 104 mg/dl (65-105)
[2023-07-27 07:51] LABS: Methylmalonic Acid 619 nmol/L (87-318)
[2023-07-27] MEDS: POTASSIUM CHLORIDE 20 MEQ ER TABLET PO ×2 (08:09→16:01)
[2023-07-27] MEDS: RIVAROXABAN 15 MG TABLET PO (08:09)
[2023-07-27] MEDS: mycophenolate mofetiL 250 MG CAPSULE 500 MG PO ×2 (08:09→16:02)
[2023-07-27] MEDS: EMPAGLIFLOZIN 10 MG TABLET PO (08:09)
--- NOTE | 2023-07-27 08:10 | PC.NURSE ---
This RN administered all morning medications given on 07/27/2023 around 0809.
[2023-07-27] MEDS: METOPROLOL TARTRATE 12.5 MG TABLET PO ×2 (08:14→21:18)
[2023-07-27] MEDS: UMECLIDINIUM/VILANTEROL 62.5-25 MCG ELLIPTA 1 PUFF INHALATION (09:18)
[2023-07-27 11:24] LABS: Glucose Point of Care 155 mg/dl (65-105)
--- NOTE | 2023-07-27 11:28 | PM.IMPN ---
Progress Note: A&P Assessment and Plan (1) Acute hyponatremia: Code(s): E87.1 - Hypo-osmolality and hyponatremia Status: Acute Assessment and Plan: 07/24: Nephrology consulted, sodium 123 this morning. 07/25: Sodium 122 this morning, appreciate Nephrology assistance. 07/26: Sodium 121 this morning, Nephrology has not yet rounded, patient may benefit from 3% saline. 07/27: sodium up to 124 this morning. (2) Chronic obstructive pulmonary disease: Code(s): J44.9 - Chronic obstructive pulmonary disease, unspecified Status: Chronic Assessment and Plan: NOT ACTIVELY WHEEZING, continue supplemental oxygen, appreciate attempts to wean but pt likely requires 24 hours/day 2-4 liters/minute with diuretics on hold. (3) Acute kidney injury superimposed on CKD: Code(s): N17.9 - Acute kidney failure, unspecified; N18.9 - Chronic kidney disease, unspecified Status: Acute Assessment and Plan: LIKELY PRE RENAL AZOTEMIA HOLDING SPIRONOLACTONE HOLDING METOLAZONE Improved since admission, likely due to diuretics on hold (4) A-fib: Code(s): I48.91 - Unspecified atrial fibrillation Status: Acute Assessment and Plan: RATE CONTROLLED ANTICOAGULATED (5) Chronic respiratory failure with hypoxia, on home oxygen therapy: Code(s): J96.11 - Chronic respiratory failure with hypoxia; Z99.81 - Dependence on supplemental oxygen Status: Acute Assessment and Plan: CONTINUE SUPPLEMENTAL OXYGEN (6) Obstructive sleep apnea: Code(s): G47.33 - Obstructive sleep apnea (adult) (pediatric) Status: Acute Assessment and Plan: CURRENTLY ON SUPPLEMENTAL OXYGEN BY NASAL CANNULA (7) Chronic interstitial lung disease: Code(s): J84.9 - Interstitial pulmonary disease, unspecified Status: Acute Assessment and Plan: UNCHANGED Plan Fluid restriction has been lifted patient's sodium level is slightly improving. Would still like to see sodium level bit higher before discharge. Await Nephrology input, appreciate assistance. Time Spent With Patient Time with patient: 25 - 35 minutes Subjective Date/time seen: 07/27/23 11:28 Interval history: Patient seated upright in the chair reading a book and watching football game. Patient in no distress, on oxygen at 2 liters/minute. Sodium is up to 124 today. Awaiting Nephrology to round. Patient still not on any of his diuretics. Does not appear fluid overloaded and is not having dyspnea or crackles. Review of Systems Review of Systems: All systems reviewed & are unremarkable except as noted in HPI and below Exam Narrative: GENERAL: Generally well appearing, alert and oriented, in no apparent distress. He is pleasant and conversant in full sentences. HEENT: Pupils are equally round and briskly reactive to light. Extraocular muscles are intact. Oral mucous membranes are moist without lesions. Dry nasal membranes with tissue at bedside from minor nose bleed. NECK: The patient has no noted JVD. No adenopathy is appreciated. CHEST/LUNGS: Lungs are clear bilaterally without rhonchi, rales, or wheezes. Supplemental oxygenation remains in place. HEART: The patient has an irregularly irregular rhythm. No murmurs, rubs, or gallops are appreciated. Distal pulses are 2+. ABDOMEN: The patient?s abdomen is soft, nontender, and nondistended. Bowel sounds are positive. EXTREMITIES: The patient has no peripheral edema. There is no focal long bone tenderness or deformity. SKIN: The patient?s skin is warm and dry, without rashes or lesions. Scattered bruises and scabbed abrasions. PSYCHIATRIC: The patient has normal mental status and has an appropriate affect. NEUROLOGIC: There are no gross deficits to the cranial nerves. Patient ambulates well with a cane and walker. Objective Data Vital Signs Vital Signs: Vital Signs - 24 hr 07/26/23 14:00 07/26/23 12:00 07/26/23 16:00 Temperature 36.1 C
--- NOTE | 2023-07-27 13:22 | P.PNNP_ITS ---
Progress Note: A&P Assessment and Plan (1) Hyponatremia: Code(s): E87.1 - Hypo-osmolality and hyponatremia Status: Chronic Assessment and Plan: * acute on chronic * has had issues with low sodium as far back as 2014 (from review of [facility] records) * however, seems more significant/pronounced in the last few months: * since March 2023, sodium running ~ 124 - 133mmol/L * however, has been as high as 135 - 140mmol/L earlier this year * was 127 on last hospital discharge (late April 2023) * suspect related to high dose diuretic therapy needed to maintain volume status * He was on metolazone which is a thiazide. He is off of this now. * He is on spironolactone still. 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 * previous testing noted on last hospitalization * TSH okay * cortisol and associated stim test okay * SPE and UPE negative for paraproteineia * serum osmo was equivalent to calculated, and urine osmo elevated above where it should be. * urine electrolytes prerenal * Currently on voluntary fluid restriction. I told him to stick to about 5 cups of water per day. * Tolvaptan helped a little bit. Pharmacy supply is very low and it is very expensive * will try 3% saline. * Will start Lasix plus salt tablets together to start in AM as he eventually is going to need to be on Lasix anyway. Will avoid metolazone. * Check another sodium later today. (2) Stage 3b chronic kidney disease: Code(s): N18.32 - Chronic kidney disease, stage 3b Status: Chronic Assessment and Plan: * baseline creatinine runs ~ 1.6 - 2.0mg/dl since December 2022 * suspect secondary to need for diuretic therapy, CAD/CHF, HTN, vascular disease and age * At his baseline now (3) CHF (congestive heart failure): Code(s): I50.9 - Heart failure, unspecified Status: Chronic Assessment and Plan: * no evidence of exacerbation * appears euvolemic at this time * restart diuretics tomorrow. 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 * He has been tested for sleep apnea and this was negative. * On chronic oxygen * no exacerbation at this time * continue home medications/inhalers * follows with [facility] Subjective Date/time seen: 07/27/23 13:22 Interval history: patient is feeling good. Eager for discharge. Exam Narrative: General: elderly but WD/WN male in NAD Heart: normal S1 and S2; no rub or gallop Lungs: coarse breath sounds Abdomen: soft, nontender, nondistended, positive bowel sounds Extremities: no cyanosis or clubbing; no edema Skin: No rash Or subcu nodules Objective Data Vital Signs Vital Signs: Vital Signs - 24 hr 07/26/23 14:00 07/26/23 16:00 07/26/23 22:00 Temperature 96.9 F L 97.6 F Pulse Rate 84 108 H 66 Respiratory Rate 18 18 Blood Pressure 101/63 119/79 Pulse Oximetry 97 93 Oxygen Delivery Oxygen Flow Rate 07/26/23 20:00 07/27/23 00:00 07/26/23 20:32 Temperature Pulse Ra
--- NOTE | 2023-07-27 13:22 | PM.PNNEP ---
Progress Note: A&P Assessment and Plan (1) Hyponatremia: Code(s): E87.1 - Hypo-osmolality and hyponatremia Status: Chronic Assessment and Plan: acute on chronic has had issues with low sodium as far back as 2014 (from review of [facility] records) however, seems more significant/pronounced in the last few months: since March 2023, sodium running ~ 124 - 133mmol/L however, has been as high as 135 - 140mmol/L earlier this year was 127 on last hospital discharge (late April 2023) suspect related to high dose diuretic therapy needed to maintain volume status He was on metolazone which is a thiazide. He is off of this now. He is on spironolactone still. 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 previous testing noted on last hospitalization TSH okay cortisol and associated stim test okay SPE and UPE negative for paraproteineia serum osmo was equivalent to calculated, and urine osmo elevated above where it should be. urine electrolytes prerenal Currently on voluntary fluid restriction. I told him to stick to about 5 cups of water per day. Tolvaptan helped a little bit. Pharmacy supply is very low and it is very expensive will try 3% saline. Will start Lasix plus salt tablets together to start in AM as he eventually is going to need to be on Lasix anyway. Will avoid metolazone. Check another sodium later today. (2) Stage 3b chronic kidney disease: Code(s): N18.32 - Chronic kidney disease, stage 3b Status: Chronic Assessment and Plan: baseline creatinine runs ~ 1.6 - 2.0mg/dl since December 2022 suspect secondary to need for diuretic therapy, CAD/CHF, HTN, vascular disease and age At his baseline now (3) CHF (congestive heart failure): Code(s): I50.9 - Heart failure, unspecified Status: Chronic Assessment and Plan: no evidence of exacerbation appears euvolemic at this time restart diuretics tomorrow. 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 He has been tested for sleep apnea and this was negative. On chronic oxygen no exacerbation at this time continue home medications/inhalers follows with [facility] Subjective Date/time seen: 07/27/23 13:22 Interval history: patient is feeling good. Eager for discharge. Exam Narrative: General: elderly but WD/WN male in NAD Heart: normal S1 and S2; no rub or gallop Lungs: coarse breath sounds Abdomen: soft, nontender, nondistended, positive bowel sounds Extremities: no cyanosis or clubbing; no edema Skin: No rash Or subcu nodules Objective Data Vital Signs Vital Signs: Vital Signs - 24 hr 07/26/23 14:00 07/26/23 16:00 07/26/23 22:00 Temperature 96.9 F L 97.6 F Pulse Rate 84 108 H 66 Respiratory Rate 18 18 Blood Pressure 101/63 119/79 Pulse Oximetry 97 93 Oxygen Delivery Oxygen Flow Rate 07/26/23 20:00 07/27/23 00:00 07/26/23 20:32 Temperature Pulse Rate 109 H 98 Respiratory Rate Blood Pressure Pulse Oximetry 93 Oxygen Delivery Nasal Cannula Oxygen Flow Rate 2 07/27/23 04:00 07/27/23 06:00 07/27/23 08:14 Temperature 96.8 F L Pulse Rate 88 80 112 H Respiratory Rate 18 Blood Pressure 113/72 Pulse Oximetry 100 Oxygen Delivery Oxygen Flow Rate 07/27/23 09:18 Temperature Pulse Rate Respiratory Rate Blood Pressure Pulse Oximetry 93 Oxygen Delivery Nasal Cannula Oxygen Flow Rate 2 Intake/Output Intake/Output: Intake & Output 07/24/23 07/25/23 07/26/23 07/27/23 23:59 23:59 23:59 23:59 Intake Total 3580 1190 1106 1250 Output Total 1
[2023-07-27 15:45] LABS: Sodium 121 mmol/L (137-145)
[2023-07-27 16:22] LABS: Glucose Point of Care 82 mg/dl (65-105)
[2023-07-27 21:10] LABS: Glucose Point of Care 97 mg/dl (65-105)
[2023-07-27] MEDS: ATORVASTATIN 20 MG TABLET PO (21:18)
[2023-07-27 22:23] LABS: Sodium 122 mmol/L (137-145)
--- NOTE | 2023-07-27 23:15 | PC.NURSE ---
Called Dr. Butts to report NA level of 122 and noted increased edema to BLE. New orders received for Lasix 40 mg IVP once, sodium chloride 1 gm PO once, fluid restriction 1200 ml. Follow up after morning labs.
[2023-07-27] MEDS: FUROSEMIDE INJ 40 MG/4 ML VIAL IV PUSH (23:24)
[2023-07-27] MEDS: SODIUM CHLORIDE 500 MG TABLET 1000 MG PO (23:24)
[2023-07-28] VITALS (10 sets, daily range): BP systolic 94–106; BP diastolic 56–66; PULSE 74–105; RESP 18–22; TEMP 36.1–36.6; O2SAT 92–100
--- NOTE | 2023-07-28 01:32 | PC.NURSE ---
Patient desating multiple times throughout this shift, while asleep. Noted to be between 76%-89% on 4L per venturi mask. Spoke with Dr. Childress at this time. New orders received to apply CPAP with Auto titrate and 4L bleed in. RT attempted to apply CPAP. Patient refusing CPAP. Says that his doctors at [facility] said he doesn't need a CPAP any more and that the oxygen is enough. Dr. Childress made aware. No new orders received.
--- NOTE | 2023-07-28 02:44 | PCRCNOTE ---
Pt refuses the S9 CPAP machine. Pt states he does not wear one at home and only wears 02 NC at night. Pt states he has HUANG but does not wear CPAP. 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
[2023-07-28 06:24] LABS: Albumin Level 3.2 g/dL (3.5-5.1); Anion Gap 7 mmol/L (8-16); Blood Urea Nitrogen 26 mg/dL (9-20); Calcium 8.5 mg/dL (8.4-10.2); Carbon Dioxide 23 mmol/L (22-30); Chloride 92 mmol/L (98-107); Estimated CRCL calculation 47 ml/min; Estimated Glomerular Filt Rate > 60; Glucose 86 mg/dL (65-110); Phosphorus 3.4 mg/dL (2.5-4.5); Potassium 3.8 mmol/L (3.4-5.0); Sodium 122 mmol/L (137-145)
[2023-07-28 07:52] LABS: Glucose Point of Care 88 mg/dl (65-105)
[2023-07-28] MEDS: POTASSIUM CHLORIDE 20 MEQ ER TABLET PO ×2 (08:43→16:53)
[2023-07-28] MEDS: RIVAROXABAN 15 MG TABLET PO (08:43)
[2023-07-28] MEDS: SODIUM CHLORIDE 500 MG TABLET 1500 MG PO ×2 (08:43→16:53)
[2023-07-28] MEDS: METOPROLOL TARTRATE 12.5 MG TABLET PO ×2 (08:43→20:19)
[2023-07-28] MEDS: mycophenolate mofetiL 250 MG CAPSULE 500 MG PO ×2 (08:43→16:53)
[2023-07-28] MEDS: EMPAGLIFLOZIN 10 MG TABLET PO (08:43)
[2023-07-28] MEDS: FUROSEMIDE 20 MG TABLET PO ×2 (08:43→16:53)
[2023-07-28] MEDS: UMECLIDINIUM/VILANTEROL 62.5-25 MCG ELLIPTA 1 PUFF INHALATION (09:10)
--- NOTE | 2023-07-28 11:01 | PM.PNNEP ---
Progress Note: A&P Assessment and Plan (1) Hyponatremia: Code(s): E87.1 - Hypo-osmolality and hyponatremia Status: Chronic Assessment and Plan: acute on chronic has had issues with low sodium as far back as 2014 (from review of [facility] records) however, seems more significant/pronounced in the last few months: since March 2023, sodium running ~ 124 - 133mmol/L however, has been as high as 135 - 140mmol/L earlier this year was 127 on last hospital discharge (late April 2023) suspect related to high dose diuretic therapy needed to maintain volume status (metolazone + spironolactone) previous testing noted on last hospitalization TSH okay cortisol and associated stim test okay SPE and UPE negative for paraproteineia serum osmo was equivalent to calculated, and urine osmo elevated above where it should be urine electrolytes prerenal on volatary fluid restriction s/p tolvaptan and 3% saline with minimal improvement started on lasix plus salt tablets together (he eventually is going to need to be on Lasix anyway -- try to avoid metolazone) follow trend of repeat sodiums (2) Stage 3b chronic kidney disease: Code(s): N18.32 - Chronic kidney disease, stage 3b Status: Chronic Assessment and Plan: baseline creatinine runs ~ 1.6 - 2.0mg/dl since December 2022 suspect secondary to need for diuretic therapy, CAD/CHF, HTN, vascular disease and age better than baseline at this time since off diuretics (3) CHF (congestive heart failure): Code(s): I50.9 - Heart failure, unspecified Status: Chronic Assessment and Plan: no evidence of exacerbation appears euvolemic at this time back on lasix follows with [facility] (4) Chronic obstructive pulmonary disease: Code(s): J44.9 - Chronic obstructive pulmonary disease, unspecified Status: Chronic Assessment and Plan: his pulmonary doctor says he does not have COPD but 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 he has been tested for sleep apnea and this was negative. on chronic oxygen no exacerbation at this time continue home medications/inhalers follows with [facility] Will continue to follow. Subjective Date/time seen: 07/28/23 11:01 Interval history: Follow-up for acute on chronic hyponatremia. Overall, he seems to be doing reasonably well; sodium stable but not really any better; s/p tolvaptan as well as 3% saline but with no significant change; remains on salt tablets as well as oral diuretic therapy; no other issues/events overnight or earlier this morning. Exam Narrative: General: elderly but WD/WN male in NAD Heart: normal S1 and S2; no rub or gallop Lungs: coarse breath sounds Abdomen: soft, nontender, nondistended, positive bowel sounds Extremities: no cyanosis or clubbing; no edema Skin: Warm and dry Objective Data Vital Signs Vital Signs: Vital Signs Temp Pulse Resp BP Pulse Ox O2 Del Method O2 Flow Rate 07/28/23 11:00 97.8 F 90 18 106/61 94 07/28/23 08:00 102 H 07/28/23 08:00 Room Air 07/28/23 09:12 92 Room Air 07/28/23 05:36 97.9 F 82 18 94/56 L 96 07/28/23 04:00 78 07/28/23 00:00 75 07/27/23 20:00 93 07/27/23 20:00 96 Nasal Cannula 4 07/27/23 21:18 95 07/27/23 21:16 97.2 F L 95 20 109/71 96 07/27/23 21:04 93 Nasal Cannula 3 Intake/Output Intake/Output: Intake & Output 07/25/23 07/26/23 07/27/23 07/28/23 23:59 23:59 23:59 23:59 Intake Total 1190 1106 1680 600 Output Total 1625 500 Balance 1190 1106 55 100 Meds/Results Medications: Active Medications Generic Name Dose Route Start Last Admin Trade Name Freq PRN Reason Stop Dose Admin Acetaminophen 650 mg 07/24/23 11:41 07/26/23 10:13 Acetaminophen 325 Mg Tablet PO 650 mg Q4H PRN Administration Pain or Fever Albuterol 1 puff 07/23/23
--- NOTE | 2023-07-28 11:01 | P.PNNP_ITS ---
Progress Note: A&P Assessment and Plan (1) Hyponatremia: Code(s): E87.1 - Hypo-osmolality and hyponatremia Status: Chronic Assessment and Plan: * acute on chronic * has had issues with low sodium as far back as 2014 (from review of [facility] records) * however, seems more significant/pronounced in the last few months: * since March 2023, sodium running ~ 124 - 133mmol/L * however, has been as high as 135 - 140mmol/L earlier this year * was 127 on last hospital discharge (late April 2023) * suspect related to high dose diuretic therapy needed to maintain volume status (metolazone + spironolactone) * previous testing noted on last hospitalization * TSH okay * cortisol and associated stim test okay * SPE and UPE negative for paraproteineia * serum osmo was equivalent to calculated, and urine osmo elevated above where it should be * urine electrolytes prerenal * on volatary fluid restriction * s/p tolvaptan and 3% saline with minimal improvement * started on lasix plus salt tablets together (he eventually is going to need to be on Lasix anyway -- try to avoid metolazone) * follow trend of repeat sodiums (2) Stage 3b chronic kidney disease: Code(s): N18.32 - Chronic kidney disease, stage 3b Status: Chronic Assessment and Plan: * baseline creatinine runs ~ 1.6 - 2.0mg/dl since December 2022 * suspect secondary to need for diuretic therapy, CAD/CHF, HTN, vascular disease and age * better than baseline at this time since off diuretics (3) CHF (congestive heart failure): Code(s): I50.9 - Heart failure, unspecified Status: Chronic Assessment and Plan: * no evidence of exacerbation * appears euvolemic at this time * back on lasix * follows with [facility] (4) Chronic obstructive pulmonary disease: Code(s): J44.9 - Chronic obstructive pulmonary disease, unspecified Status: Chronic Assessment and Plan: * his pulmonary doctor says he does not have COPD but 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 * he has been tested for sleep apnea and this was negative. * on chronic oxygen * no exacerbation at this time * continue home medications/inhalers * follows with [facility] Will continue to follow. Subjective Date/time seen: 07/28/23 11:01 Interval history: Follow-up for acute on chronic hyponatremia. Overall, he seems to be doing reasonably well; sodium stable but not really any better; s/p tolvaptan as well as 3% saline but with no significant change; remains on salt tablets as well as oral diuretic therapy; no other issues/events overnight or earlier this morning. Exam Narrative: General: elderly but WD/WN male in NAD Heart: normal S1 and S2; no rub or gallop Lungs: coarse breath sounds Abdomen: soft, nontender, nondistended, positive bowel sounds Extremities: no cyanosis or clubbing; no edema Skin: Warm and dry Objective Data Vital Signs Vital Signs: Vital Signs Temp Pulse Resp BP Pulse Ox O2 Del Method O2 Flow Rate 07/28/23 11:00 97.8 F 90 18 106/61 94 07/28/23 08:00 102 H 07/28/23 08:00 Room Air 07/28/23 09:12 92 Room Air 07/28/23 05:36 97.9 F 82 18 94/56 L 96 07/28/23 04:00 78 07/28/23 00:00 75 07/27/23 20:00 93 07/27/23 20:00 96 Nasal Cannula
[2023-07-28 11:25] LABS: Glucose Point of Care 89 mg/dl (65-105)
--- NOTE | 2023-07-28 12:41 | PM.TDS ---
Transfer Discharge Sum: Prov Provider Date of admission: 07/25/23 13:01 Primary care physician: Pedro Mckeon, Admitting clinician: Gurvinder Damico MD Attending physician on admission: Kg Damico Consults: 07/23/23 Consult to Physician Routine Comment: Consulting Provider: Emilee Peng Reason for consultation: hyponatremia Has provider been notified: Yes Attending physician on discharge: Jam Lei Discharging clinician: Owen Vicente Anticipated date of transfer: 07/28/23 [facility]: Admitting Diagnosis Discharge Date 07/28/2023 Admitting Diagnosis acute hyponatremia, chronic interstitial lung disease, chronic respiratory failure with hypoxia home oxygen therapy, obstructive sleep apnea chronic obstructive pulmonary disease AFib acute kidney injury superimposed on CKD DS: Discharge Diagnosis Discharge Diagnosis (1) Acute hyponatremia: Code(s): E87.1 - Hypo-osmolality and hyponatremia Status: Acute (2) Chronic obstructive pulmonary disease: Code(s): J44.9 - Chronic obstructive pulmonary disease, unspecified Status: Chronic (3) Acute kidney injury superimposed on CKD: Code(s): N17.9 - Acute kidney failure, unspecified; N18.9 - Chronic kidney disease, unspecified Status: Acute (4) A-fib: Code(s): I48.91 - Unspecified atrial fibrillation Status: Acute (5) Chronic respiratory failure with hypoxia, on home oxygen therapy: Code(s): J96.11 - Chronic respiratory failure with hypoxia; Z99.81 - Dependence on supplemental oxygen Status: Acute (6) Obstructive sleep apnea: Code(s): G47.33 - Obstructive sleep apnea (adult) (pediatric) Status: Acute (7) Chronic interstitial lung disease: Code(s): J84.9 - Interstitial pulmonary disease, unspecified Status: Acute Plan Transfer to [facility] as this is where 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, 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, 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 care 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 are located Transfer Discharge Sum: Med Medications Active and Home Medications: Home Medications atorvastatin 20 mg tablet 20 mg PO HS 08/10/19 [History Confirmed 07/23/23] metoprolol tartrate 25 mg tablet 12.5 mg PO Q12H 08/10/19 [History Confirmed 07/23/23] potassium chloride 20 mEq tablet,extended release(part/cryst) (Klor-Con M) 20 meq PO BID 03/28/23 [History Confirmed 07/23/23] spironolactone 25 mg tablet 25 mg PO DAILY 03/28/23 [History Confirmed 07/23/23] umeclidinium 62.5 mcg-vilanterol 25 mcg/actuation powdr for inhalation (Anoro Ellipta) 1 inh inhalation DAILY 03/28/23 [History Confirmed 07/23/23] empagliflozin 10 mg tablet (Jardiance) 10 mg PO DAILY 05/06/23 [History Confirmed 07/23/23] mycophenolate mofetil 500 mg tablet 500 mg PO BID 05/06/23 [History Confirmed 07/23/23] rivaroxaban 15 mg tablet 15 mg PO DAILY atrial flutter #30 tabs 05/09/23 [Rx Confirmed 07/23/23] sodium chloride 1,000 mg soluble tablet 1,000 mg PO BID 30 days #60 tabs 05/09/23 [Rx Confirmed 07/23/23] albuterol 1 puff inhalation PRN PRN sob 07/23/23 [History Confirmed 07/23/23] metolazone 2.5 mg tablet 25 mg PO DAILY 07/23/23 [History Confirmed 07/23/23] Active Medications Acetaminophen (Acetaminophen 325 Mg Tablet) 650 mg PO Q4H PRN PRN Reason: Pain or Fever Last Admin: 07/26/23 10:13 Dose: 650 mg Albuterol (Albuterol Sulfate (*Sp) Aerosol 1 Puff) 1 puff INHALATION PRN PRN PRN Reason: sob Atorvastatin Calcium (Atorvastatin 20 Mg Tablet) 20 mg PO HS [facility] Last Admin: 07/27/23 21:18 Dose: 20 mg Empagliflozin (Empagliflozin 10 Mg Tablet) 10 mg PO DAILY [facility] Last Admin: 07/28/23 08:43 Dose: 10 mg Furosemide (Furosemide 20 Mg Tablet) 20 mg PO BID [facility] Last Admin: 07/28/23 08:43 Dose: 20 mg Insulin Aspart (Insulin Aspart (*Bkc) 100 Units/Ml) 4 units 0.05 units/kg (4 units) SUB-Q TIDWM [facility] Last Admin: 07/28/23 11:29 Dose: Not Given
[2023-07-28 16:23] LABS: Glucose Point of Care 130 mg/dl (65-105)
--- NOTE | 2023-07-28 17:20 | PC.NURSE ---
Spoke with [facility] transfer [place] regarding patient. [facility] is still waiting on bed to become available, unsure of when one will become open. Transfer center updated on patient's most recent set of vitals and no new changes in patient's condition. This nurse was advised to call the [facility] transfer center at [phone] option 2 if there are any changes in patient condition.
[2023-07-28] MEDS: ATORVASTATIN 20 MG TABLET PO (20:19)
[2023-07-28 20:35] LABS: Glucose Point of Care 105 mg/dl (65-105)
[2023-07-31 22:39] LABS: Red Blood Cell Folate 818 ng/mL RBC (>280)
== END 2023-07-28 22:05 | disposition short-term general hospital (02) | DRG 641 ==
LOC: ANHED 14:20 → ANH3MEDSUR 18:39
PROVIDERS: Internal Medicine; Internal Medicine Nephrology; Admitting Provider Internal Medicine; Emergency Provider General Practice; PCP Family Medicine Sports Medicine; Visit Provider Nurse Practitioner
DX: E87.1 Hypo-osmolality and hyponatremia (principal); J96.11 Chronic respiratory failure with hypoxia; N17.9 Acute kidney failure, unspecified; I13.0 Hypertensive heart and chronic kidney disease with heart failure and stage 1 through stage 4 chronic kidney disease, or unspecified chronic kidney disease; J84.9 Interstitial pulmonary disease, unspecified; T50.2X5A Adverse effect of carbonic-anhydrase inhibitors, benzothiadiazides and other diuretics, initial encounter; J44.9 Chronic obstructive pulmonary disease, unspecified; I48.91 Unspecified atrial fibrillation; G47.33 Obstructive sleep apnea (adult) (pediatric); N18.32 Chronic kidney disease, stage 3b; I50.9 Heart failure, unspecified; I25.10 Atherosclerotic heart disease of native coronary artery without angina pectoris; M19.90 Unspecified osteoarthritis, unspecified site; L40.9 Psoriasis, unspecified; Z96.653 Presence of artificial knee joint, bilateral; Z20.822 Contact with and (suspected) exposure to COVID-19; Z99.81 Dependence on supplemental oxygen; Z95.5 Presence of coronary angioplasty implant and graft; Z95.1 Presence of aortocoronary bypass graft; Z87.891 Personal history of nicotine dependence
CPT/HCPCS: 36415; 70450; 71045; 72125; 80053; 80069; 81001; 82607; 82728; 82746; 82747; 82948; 83540; 83550; 83921; 84295; 84466; 85025; 85055; 85610; 85730; 87635; 93005; 94640; 96360; 96361; 97161; 97165; 97530; 99285; A9270; G0378; J1815; J1940; J7030; J7040; J7131; J7517